=== PATIENT | male | born 1970 | race Caucasian/White ===

== ENCOUNTER 2017-01-30 12:17 | Emergency (ER) | payer OTHER ==
[~2017-01-30] VITALS: Ht 180.3 cm; Wt 117.9 kg
[~2017-01-30 12:17] MED LIST: ALPRAZOLAM2 M2 PO; FLEXERIL10 MG PO; IBU800 MG PO; LISINOPRIL20 MG PO; NORVASC 5MG TAB5 MG PO; PERCOCET 325 MG1 TA2 PO
--- NOTE | 2017-01-30 12:45 | ED PSYCHIATRIC COMPLAINT ---
History of Present Illness General Chief Complaint: Psychiatric Related Complaint Stated Complaint: DEPRESSION Source: patient, old records Exam Limitations: no limitations Vital Signs & Intake/Output Vital Signs & Intake/Output Vital Signs Date Time Temp Pulse Resp B/P B/P Pulse O2 O2 Flow FiO2 Mean Ox Delivery Rate 01/30 1547 97.3 80 12 151/88 96 Room Air 01/30 1448 Room Air 01/30 1224 97.9 96 18 181/100 98 Room Air Allergies Coded Allergies: MDX - Penicillin (PENICILLIN) (PER PT HAD A KID 04/14/15) PER PATIENT PLEASE DISCARD THE ALLERGY DOESNT REMEMBER IF HE HAD IT AND SAIS ITS OK TO RECEIVE PCN MEDICATIONS OR CEPHALOSPORINS PER MAICO GILLESPIE Reconcile Medications Alprazolam 2 MG TABLET 1 TAB PO TIDPRN PRN ANXIETY (Reported) Amlodipine Besylate 10 MG TABLET 1 TAB PO DAILY HEART (Reported) Ramelteon (Rozerem) 8 MG TABLET 1 TAB PO QPM SLEEP (Reported) Valsartan (Diovan) 80 MG TABLET 1 TAB PO DAILY HEART (Reported) Triage Note: 46 Y/O MALE PRESENTS WITH INCREASING DEPRESSION "FOR MONTHS". STATES "I HAVE NO QUALITY OF LIFE, I JUST WANT TO GET BETTER". REPORTS DIFFICULTY SLEEPING AND EATING. DENIES SI/HI BUT STATES "I JUST DONT WANT TO DEAL WITH ANYTHING .. I HAVE NO MOTIVATION, NO NOTHING". STATES HE IS HAVING INCREASING PANIC ATTACKS. WAS ON PROZAC BUT STOPPED DUE IT FEELING IT WAS NOT HELPING. PT REPORTS BEING "EMOTIONAL, I GET SO WORKED UP SO EASILY". PT TEARFUL DURING TRIAGE. DENIES DRUG USE. DENIES PHYSICAL COMPLAINTS. Triage Nurses Notes Reviewed? yes HPI: Patient brought into the emergency department for increasing depression. Patient denies any suicidal ideations however he does feel that he is worthless and he does not deserve to live anymore. His doctor has wanted to prescribed Prozac a month ago with the patient did not want to take it. Patient denies any homicidal ideations. Patient denies any hallucinations. Patient states he has been taking his medications only as prescribed and he has not attempted to harm himself. Past History Travel History Traveled to [place] past 21 day No Medical History Any Pertinent Medical History? 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 No Review of Systems Review of Systems Constitutional: Reports: no symptoms. EENTM: Reports: no symptoms. Respiratory: Reports: no symptoms. Cardiovascular: Reports: no symptoms. GI: Reports: no symptoms. Genitourinary: Reports: no symptoms. Musculoskeletal: Reports: no symptoms. Skin: Reports: no symptoms. Neurological/Psychological: Reports: see HPI, dementia. Hematologic/Endocrine: Reports: no symptoms. Immunologic/Allergic: Reports: no symptoms. All Other Systems: Reviewed and Negative Physical Exam Physical Exam General Appearance: well developed/nourished, alert, awake, moderate distress Head: atraumatic, active bleeding Eyes: Bilateral: PERRL, EOMI. Ears, Nose, Throat: normal pharynx, normal ENT inspection, hearing grossly normal Neck: normal inspection, supple Respiratory: normal breath sounds, chest non-tender, no respiratory distress, lungs clear Cardiovascular: regular rate/rhythm, normal peripheral pulses Gastrointestinal: normal bowel sounds, soft, non-tender Extremities: normal range of motion Neurological/Psychiatric: no motor/sensory deficits, awake, alert, oriented x 3 Appearance/Memory/Insight: appropriate appearance, appropriate insight Behavoir/Eye Contact/Speech: cooperative, normal speech, good eye contact, TEARFULL Thoughts/Hallucinations: normal thought pattern, no apparent hallucination Skin: intact, normal color, warm/dry SAD PERSONS Done? CRISIS CONSULT OBTAINED Progress Differential Diagnosis: drug intoxication, drug overdose, drug withdrawal, electrolyte abnormality Plan of Care: Orders Procedure Date/time Status Regular Diet 01/30 D Active Continuous Observation Monitor 01/30 1244 Active URINE DRUGS OF ABUSE 01/30 1244 Complete ETHANOL 01/30 1244 Complete COMPREHENSIVE METABOLIC PANEL 01/30 1244 Complete CBC WITHOUT DIFFERENTIAL 01/30 1244 Complete ED CRISIS PSYCH CONSULT 01/30 1244 Active Current Medications Sig/Imani Start time Last Medication Dose Stop Time Status Admin Amlodipine Besylate 10 MG DAILY 01/31 1000 UNVr (Norvasc) Losartan Potassium 25 MG DAILY 01/31 1000 UNVr (Cozaar) Ramelteon 8 MG QPM 01/30 2200 UNVr (Rozerem) Alprazolam 2 MG TID 01/30 174 UNVr 01/30 (Xanax) 02/06 1742 1754 Laboratory Tests 01/30/17 1513: Anion Gap 9, Estimated GFR > 60, BUN/Creatinine Ratio 23.0, Glucose 91, Calcium 9.7, Total Bilirubin 0.8, AST 63 H, ALT 76 H, Alkaline Phosphatase 141 H, Total Protein 8.0, Albumin 4.3, Globulin 3.7, Albumin/Globulin Ratio 1.2, CBC w Diff NO MAN DIFF REQ, RBC 4.46 L, MCV 88.4, MCH 30.5, RDW 13.9, MPV 7.1 L, Gran % 68.9, Lymphocytes % 23.4, Monocytes % 6.1, Eosinophils % 1.1, Basophils % 0.5, Absolute Granulocytes 5.5, Absolute Lymphocytes 1.9, Absolute Monocytes 0.5 , Absolute Eosinophils 0.1, Absolute Basophils 0, PUBS MCHC 34.5, Serum Alcohol < 10.0 01/30/17 1320: Urine Opiates Screen < 100.00, Methadone Screen 55, Barbiturate Screen < 60, Ur Phencyclidine Scrn < 6.00, Amphetamines Screen < 100, U Benzodiazepines Scrn > 800 H, Urine Cocaine Screen < 50, Urine Cannabis Screen < 5.00 Comments: Patient has been seen and evaluated by cloth opener hand. Patient has IOP appointment tomorrow morning. Patient is stable for discharge. Departure Departure Disposition: HOME OR SELF CARE Condition: Stable Clinical Impression Primary Impression: Depression Referrals: MAGALYS VARGAS MD (PCP/Family) Additional Instructions: Follow-up with IOP appointment tomorrow. Return if symptoms worsen or for any concerns. Departure Forms: Customer Survey General Discharge Information
[2017-01-30] MEDS ORDERED: DIOVAN80 M1 PO (14:13)
[2017-01-30] MEDS ORDERED: AMLODIPINE BESY10 M1 PO (14:13)
[2017-01-30] MEDS ORDERED: ROZEREM8 M1 PO (14:13)
[2017-01-30 15:35] LABS: ABSOLUTE BASOPHIL COUNT 0 /CUMM (0.0-0.2); ABSOLUTE EOSINOPHIL COUNT 0.1 /CUMM (0.0-0.7); ABSOLUTE GRANULOCYTE CT 5.5 /CUMM (1.4-6.5); ABSOLUTE LYMPH COUNT 1.9 /CUMM (1.2-3.4); ABSOLUTE MONOCYTE COUNT 0.5 /CUMM (0.10-0.60); BASOPHIL % 0.5 % (0.0-2.0); EOSINOPHIL % 1.1 % (0-5); GRANULOCYTE % 68.9 % (42.2-75.2); HEMATOCRIT 39.4 % (42-52); MEAN CORPUSCULAR HGB 30.5 PG (27.0-31.0); MEAN CORPUSCULAR HGB CONC 34.5 G/DL (33.0-37.0); MEAN CORPUSCULAR VOLUME 88.4 FL (80.0-94.0); MEAN PLATELET VOLUME 7.1 FL (7.4-10.4); PLATELET COUNT 239 /CUMM (130-400); RBC DISTRIBUTION WIDTH 13.9 % (11.5-14.5); RED BLOOD CELL CT 4.46 /CUMM (4.70-6.10); WHITE BLOOD CELL COUNT 7.9 /CUMM (4.8-10.8)
--- NOTE | 2017-01-30 19:27 | ED PSYCH CRISIS CONSULTATION ---
Crisis Consult Basic Assessment Date of Consult: 01/30/17 Responsible Person/Accompanied By: Came in by himself Insurance Authorization: Insurance #1: Insurance name: ALEXEI Gleason C[employer]Ros[employer] Phone number: Policy number: [id number] Group number: Authorization number: ED Provider: Patient's ED Provider: KISHAN PARISH,CHRISTIE Leiva Primary Care Physician: Patient's PCP: MAGALYS VARGAS MD PCP's Chief Complaint: Psychiatric Related Complaint Patient's Quote: "I'm depressed and don't want to do anything". Present Illness: Pt is a 46 year old male, arriving to ER. 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 Since then he has felt useless, and states he has trouble with focusing, poor sleep and is depressed. He denies si/hi/ah.vh. He has not been inpatient nor has he received any other level of care to treat mental health problems, although he states his PCP precribed him prozac 2 months ago, he stopped taking the medication after a few weeks "because it didn't do anything". Pt reports he is also prescribed Alprazolam and takes up to 6 mg a day, for "panic issues". Pt has not seen a psychiatrist, or a digital research analyst, and is unsure if he is diagnosed with anxiety or depression. He feels "emotional", and it is not unclear what his stressors or triggers are. He states he take nyquil to sleep, and its not helpful. Pt lives at his Mother's home with his 9 year old daughter, and her Mother. Pt denies drug and etoh use. He wants help, and thought he could come to the hospital "to stay for 5 days and get some peace". Pt lives with Jaky, I spoke with her and she wants him to get help, I explained the levels of care to her, and shared our recommendation would be IOP. She denied concern for his safety, and was hopeful that he would attend. Patient's Address: [address] [place], [place] [id number] Other Phone Number: Who Do You Live With? Family Family/Informants Interviewed: Jaky is sad that he is acting like is in front of their daughter, she reports he is so emotional at home and unmotivated. She is not concerned for his saftey, he "just needs a kick in the butt, to get some help". Allergies - Coded Allergies: MDX - Penicillin (PENICILLIN) (PER PT HAD A KID 04/14/15) PER PATIENT PLEASE DISCARD THE ALLERGY DOESNT REMEMBER IF HE HAD IT AND SAIS ITS OK TO RECEIVE PCN MEDICATIONS OR CEPHALOSPORINS PER MAICO GILLESPIE Current Medications - Scheduled Medications Amlodipine Besylate 10 MG TABLET 1 TAB PO DAILY HEART #30 (Reported) Entered as Reported by RIGOBERTO LONG on 01/30/17 1413 Ramelteon (Rozerem) 8 MG TABLET 1 TAB PO QPM SLEEP #30 (Reported) Entered as Reported by RIGOBERTO LONG on 01/30/17 1413 Valsartan (Diovan) 80 MG TABLET 1 TAB PO DAILY HEART #30 (Reported) Entered as Reported by RIGOBERTO LONG on 01/30/17 1413 Scheduled PRN Medications Alprazolam 2 MG TABLET 1 TAB PO TIDPRN PRN ANXIETY (Reported) Entered as Reported by GUIDO RICK on 04/14/152008 Laboratory Results: Laboratory Tests 01/30/17 1513: Anion Gap 9, Estimated GFR > 60, BUN/Creatinine Ratio 23.0, Glucose 91, Calcium 9.7, Total Bilirubin 0.8, AST 63 H, ALT 76 H, Alkaline Phosphatase 141 H, Total Protein 8.0, Albumin 4.3, Globulin 3.7, Albumin/Globulin Ratio 1.2, CBC w Diff NO MAN DIFF REQ, RBC 4.46 L, MCV 88.4, MCH 30.5, RDW 13.9, MPV 7.1 L, Gran % 68.9, Lymphocytes % 23.4, Monocytes % 6.1, Eosinophils % 1.1, Basophils % 0.5, Absolute Granulocytes 5.5, Absolute Lymphocytes 1.9, Absolute Monocytes 0.5 , Absolute Eosinophils 0.1, Absolute Basophils 0, PUBS MCHC 34.5, Serum Alcohol < 10.0 01/30/17 1320: Urine Opiates Screen < 100.00, Methadone Screen 55, Barbiturate Screen < 60, Ur Phencyclidine Scrn < 6.00, Amphetamines Screen < 100, U Benzodiazepines Scrn > 800 H, Urine Cocaine Screen < 50, Urine Cannabis Screen < 5.00 Past History Past Medical History Neurological: NONE EENT: NONE Cardiovascular: hypertension Respiratory: NONE Gastrointestinal: NONE Hepatic: NONE Renal: NONE Musculoskeletal: NONE Psychiatric: anxiety Endocrine: NONE Blood Disorders: NONE Cancer(s): NONE 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 Psychiatric Treatment History Psych Treatment Psychiatric Treatment No Diagnosis by History: unknown Substance Use/Abuse History Drug Use/Abuse Substances Used/Abused Yes Substance Used/Abused Benzodiazepines First Use unknown Last Used today How much used/taken up to 6 mg prescibed xnanx daily How often daily For how long unknown Route of use oral Substance Abuse Treatment Substance Abuse Treatment Past Substance Abuse [place] No Current Mental Status Mental Status Orientation: Person, Place, Situation Affect: Labile, Sad, Variable Speech: Mumbled, Soft Neuro-vegetative: Appetite Decreased, Concentration Poor, Energy Decreased, Helpless, Sleep Disturbance Appearance Appearance- Dress/Hygiene: WNL/appropriate Behaviors Thought Process: WNL, perseverating Thought Content: WNL Memory: WNL Insight: Poor SI/HI Risk Assessment Past Suicidal Ideation/Attempts No Current Suicidal Ideation/Att No Past Homicidal Ideation/Att: No Current Homicidal Ideation/Attempts No Degree of Intent: None Risk Factors: lack of outcome concern, male, limited support Lethality Ratin (mild) PTSD Checklist PTSD Done? patient declined ED Management Sitter: Yes Restraints: No DSM5/PS Stressors/Medical Prob Diagnosis' (DSM 5, Stressors, Medical): Unspecified anxiety D/O F41.9 Unspecified depression D/O F32.9 Deferred unknown medical conditions Current GAF: 36 Departure Disposition Psych Medical Clearance Date: 01/30/17 Medically Cleared at: 1630 Time Started: 1630 Time Ended: 1729 Psychiatrist Consulted: Anderson Feliciano MD Date Disposition Established: 01/30/17 Time Disposition Established: 1729 Plan for Disposition - Modality: IOP Facility: [facility] Follow-up Appt Date: 01/31/17 Follow-Up Appt Time: 0930 Contact: [facility] Telephone: [phone] Rationale for Disposition: Pt meets criteria for IOP, and has an intake appt tomorrow at 9:30am [facility], consulted with Dr. Feliciano recommends this level of care at this time. Referrals MAGALYS VARGAS MD (PCP/Family)
[2017-01-30 19:44] VITALS: BP 139/81
== END 2017-01-30 21:27 ==
LOC: ERH 12:17
PROVIDERS: Emergency Medicine
DX: F32.9 Major depressive disorder, single episode, unspecified (principal)
CPT/HCPCS: 80307; G0463; G0480

== ENCOUNTER 2018-03-26 16:46 | Inpatient (IN) | payer OTHER ==
[~2018-03-26] VITALS: Ht 180.3 cm; Wt 126.1 kg
[~2018-03-26 16:46] MED LIST changes: +AMLODIPINE BESY10 M1 PO; +DIOVAN80 M1 PO; +NAPROSYN500 M1 PO; +ROZEREM8 M1 PO
[2018-03-26 17:13] LABS: HEMATOCRIT 28.9 % (42-52); MEAN CORPUSCULAR HGB 32.2 PG (27.0-31.0); MEAN CORPUSCULAR HGB CONC 34.7 G/DL (33.0-37.0); MEAN PLATELET VOLUME 9.3 FL (7.4-10.4); PLATELET COUNT 116 /CUMM (130-400); RBC DISTRIBUTION WIDTH 16.9 % (11.5-14.5); RED BLOOD CELL CT 3.11 /CUMM (4.70-6.10); WHITE BLOOD CELL COUNT 11.9 /CUMM (4.8-10.8)
--- NOTE | 2018-03-26 17:33 | ED SKIN/ALLERGY COMPLAINT ---
History of Present Illness General Chief Complaint: Abdominal Pain/Flank Pain Stated Complaint: BIBA GI BLEED Source: patient Exam Limitations: poor historian Vital Signs & Intake/Output Vital Signs & Intake/Output Vital Signs Date Time Temp Pulse Resp B/P B/P Pulse O2 O2 Flow FiO2 Mean Ox Delivery Rate 03/26 1948 97.8 92 20 122/60 98 Room Air 03/26 1729 Room Air 03/26 1656 98.3 90 16 96/52 98 Room Air Allergies Coded Allergies: Penicillins (Severe, UNKNOWN PER PT HAD A REACTION A CHILDHOOD 03/26/18) Reconcile Medications Amlodipine Besylate 10 MG TABLET 1 TAB PO DAILY HEART (Reported) Atorvastatin Calcium (Unknown Strength) TABLET (Unknown Dose) PO DAILY CHOLESTEROL (Reported) Diazepam 10 MG TABLET 1 TAB PO TID PRN ANXIETY (Reported) Gabapentin (Neurontin) 300 MG CAPSULE 2 CAP PO TID NERVE PAIN/ANXIETY ( Reported) Mirtazapine (Remeron) (Unknown Strength) TABLET (Unknown Dose) PO QPM SLEEP ( Reported) Ramelteon (Rozerem) 8 MG TABLET 1 TAB PO QPM SLEEP (Reported) Valsartan (Diovan) 80 MG TABLET 1 TAB PO DAILY HEART (Reported) Triage Note: BIBA FROM HOME WITH C/O ABDOMINAL PAIN WITH REPORT OF VOMITING BLOOD/BROWN COLOR AND HAVING BOWEL MOVEMENTS WITH DARK RED STOOL X3 DAYS. PATIENT ALSO REPORTS INCREASED WEAKNESS. PATIENT DENIES ETOH ABUSE BUT FAMILY REPORTS PATIENT USES ETOH DAILY. PATIENT ARRIVES WITH MULTIPLE BRUISES IN VARIOUS STAGES OF HEALING ALL OVER EXTREMITIES. PATIENT DENIES CP OF DIFFICULTY BREATHING, DENIES BLOOD THINNERS. PATIENT ARRIVES WITH PREHOSPITAL IV IN LEFT HAND. CHANGED INTO HOSPITAL W, 2ND IV ESTABLISHED. AWAITING PROVIDER EVAL. Triage Nurses Notes Reviewed? yes HPI: Patient presents for evaluation of weakness and bruising of the arms and legs that began about 4 days ago. Symptoms are characterized as constant and seemed to be getting worse over the past 48 hours. The patient states he vomited repeatedly over the past 2 days as well but denies any blood in the vomitus. He states he also had some mild red blood when he wiped over yesterday and today. He denies any associated fever, cold symptoms, chest pain, dyspnea, abdominal pain or diarrhea. He PO intake has been diminished because he just simply doesn 't feel hungry. He denies alcohol use or drug use. Past History Travel History Traveled to [place] past 21 day No Medical History Any Pertinent Medical History? 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 No Review of Systems Review of Systems Constitutional: Reports: see HPI. EENTM: Reports: no symptoms. Respiratory: Reports: no symptoms. Cardiovascular: Reports: no symptoms. GI: Reports: no symptoms. Genitourinary: Reports: no symptoms. Musculoskeletal: Reports: no symptoms. Skin: Reports: see HPI. Neurological/Psychological: Reports: no symptoms. Hematologic/Endocrine: Reports: no symptoms. Immunologic/Allergic: Reports: no symptoms. All Other Systems: Reviewed and Negative Physical Exam Physical Exam General Appearance: see below Comments: Gen.: Well-nourished, well-developed, no acute respiratory distress. Head: Normocephalic, atraumatic. Eyes: Normal inspection bilaterally, question of subtle icterus Ears: Normal inspection bilaterally Nose: Normal inspection Throat/mouth : Moist mucosa Neck: Supple, full range of motion, no goiter Heart: Regular rate and rhythm, no murmurs rubs or gallops Lungs: Clear to auscultation bilaterally with normal air entry Chest: Nontender Back: Normal range of motion Abdomen: Soft, nontender, nondistended, normal bowel sounds Extremities: Normal range of motion grossly, equal radial pulses, no cyanosis clubbing or edema, calves nontender, ecchymoses of the right popliteal fossa and anteromedial left leg. There is also a relatively acute appearing ecchymotic lesion over the left elbow Neurologic: Cranial nerves grossly intact, speech is clear Skin: warm and dry Psychiatric: Calm, cooperative, no apparent delusions or hallucinations Progress Differential Diagnosis: ANEMIA, DEHYDRATION, ELECTROLYTE ABNORMALITY, ACIDOSIS, LIVER DISEASE Plan of Care: Orders Procedure Date/time Status Heart Healthy Diet 03/27 B Active LACTIC ACID 03/26 1958 Active Add-on Test (ER Only) 03/26 1940 Active Misc Message 03/26 1938 Active ED Holding Orders 03/26 1938 Active Admit to inpatient 03/26 1938 Active Vital Signs 03/26 1938 Active Code Status 03/26 1938 Active EKG 03/26 1848 Active Add-on Test (ER Only) 03/26 173 Active PARTIAL THROMBOPLASTIN TIME 03/26 170 Complete PROTHROMBIN TIME 03/26 170 Complete HEPATITIS PANEL 03/26 170 Active LACTIC ACID 03/26 165 Active COMPREHENSIVE METABOLIC PANEL 03/26 1658 Active CBC WITHOUT DIFFERENTIAL 03/26 1658 Complete TYPE & SCREEN (NOT X-MATCH) 03/26 1658 Complete Current Medications Sig/Imani Start time Last Medication Dose Stop Time Status Admin Sodium Chloride 1,000 ML ONCE ONE 03/26 1900 AC 03/26 (Normal Saline 0.9%) 03/27 Laboratory Tests 03/26/18 2000: Lactic Acid Pending 03/26/18 1700: Anion Gap 18 H, Estimated GFR 6 L, BUN/Creatinine Ratio 11.4, Glucose 88, Lactic Acid 2.2 H, Calcium 5.8 *L, Total Bilirubin 4.3 H, AST 6928 H, ALT 1128 H, Alkaline Phosphatase 376 H, Total Protein 6.1 L, Albumin 2.7 L, Globulin 3.4, Albumin/Globulin Ratio 0.8 L, PT 16.0 H, INR 1.46 H, APTT 39 H , CBC w Diff MAN DIFF ORDERED, RBC 3.11 L, MCV 93.0, MCH 32.2 H, MCHC 34.7, RDW 16.9 H, MPV 9.3, Segmented Neutrophils 72, Lymphocytes 26, Monocytes 1 L, Eosinophils 1, Platelet Estimate DECREASED, Anisocytosis 1+, Target Cells RARE, Hepatitis A IgM Ab Pending, Hep Bs Antigen Pending, Hep B Core IgM Ab Conf Pending, Hepatitis C Antibody Pending Diagnostic Imaging: Discussed w/RAD: CT Scan. Radiology Impression: PATIENT: VALENTINA GONZALEZ PRESENT AGE: 47 PATIENT ACCOUNT NO: [id number] : 71 LOCATION: [facility] ORDERING PHYSICIAN: Americo Dyson MD SERVICE DATE: 03/26/18 EXAM TYPE: CAT - CT ABD & PELVIS W/O IV CONTRAS EXAMINATION: CT ABDOMEN AND PELVIS WITHOUT CONTRAST CLINICAL INFORMATION: Hepatitis, biliary obstruction, ascites and vomiting. COMPARISON: Ultrasound abdomen 09/02/2017. TECHNIQUE: Multidetector volumetric imaging was performed from the superior aspect of the liver through the pubic symphysis. Sagittal and coronal reformatted images were obtained on the technologist's workstation. DLP: 1104 mGy-cm FINDINGS: LUNG BASES: The visualized lung bases are unremarkable. LIVER, GALLBLADDER, AND BILIARY TREE: The liver is enlarged and hypodense compared to spleen likely hepatic fatty infiltration. No focal lesion is seen on this exam. No intrahepatic ductal dilatation. The gallbladder is unremarkable with no evidence of radiopaque gallstones, gallbladder wall thickening, or obvious pericholecystic inflammatory changes. PANCREAS: Unremarkable. SPLEEN: Unremarkable. ADRENAL GLANDS: Unremarkable. KIDNEYS AND URETERS: The kidneys are normal in size, shape, and attenuation. No hydronephrosis, hydroureter, or calculi seen. No perinephric stranding. BLADDER: Unremarkable. GASTROINTESTINAL TRACT: There is mild mural thickening of the ascending and proximal transverse colon likely nonspecific focal colitis. There is no pericolic inflammatory process. The ileocecal junction, cecum and the small bowel loops unremarkable. Appendix is not seen. Rest of the colon is unremarkable as well. The stomach appears unremarkable. ABDOMINAL WALL: No significant hernia is appreciated. LYMPH NODES: Normal. VASCULAR: Unremarkable. PELVIC VISCERA: There is scattered sigmoid diverticulosis without diverticulitis. No pelvic mass or free fluid seen. No abnormal lymph nodes. OSSEOUS STRUCTURES: No lytic or sclerotic process seen. There are degenerative disc changes L4-L5 disc level. IMPRESSION: Hepatomegaly with hepatic steatosis. No focal lesion seen. Nonspecific mild mural thickening involving distal ascending colon and right transverse colon. Nonspecific colitis likely inflammatory or infectious etiology. No proximal bowel obstruction. Scattered sigmoid diverticulosis without diverticulitis. DICTATED BY: Will Phillips MD DATE/TIME DICTATED:03/26/181937 SALES OPERATIONS CONSULTANT:JANE DATE/TIME TRANSCRIBED:03/26/181937 CONFIDENTIAL, DO NOT COPY WITHOUT APPROPRIATE AUTHORIZATION. <Electronically signed in Other Vendor System> SIGNED BY: Will Phillips MD 03/26/181947 Initial ED EKG: NSR, rate (90) Comments: 03/26/2018 7:49:50 PM according is beginning to feel better with IV fluids. I have updated him on test results. Patient's case discussed with Dr. Rivas. Departure Departure Disposition: STILL A PATIENT Condition: Stable Clinical Impression Primary Impression: Acute renal failure Qualifiers: Acute renal failure type: unspecified Qualified Code: N17.9 - Acute kidney failure, unspecified Secondary Impressions: Hepatitis Referrals: Wilver Santiago MD (PCP/Family) Departure Forms: Customer Survey General Discharge Information Admission Note Spoke With: Tonio Rivas MD Documentation of Exam: Documentation of any treatments & extenuating circumstances including Concerns Regarding Discharge (functional status, medication knowledge or non-compliance, living conditions, etc.) that warrant an admission rather than observation: Patient presents with generalized weakness and easy bruising. His emergency department evaluation reveal signs of acute renal failure and hepatitis. The patient denies history of liver disease or recent alcohol use. Etiology of the patient's renal failure and hepatitis is unclear at this time. He is at high risk of progressive hyperkalemia, acidosis, coagulopathy, cardiac dysrhythmia and mortality. I feel he is a poor candidate for outpatient management at this time. I suspect he would return in worse clinical condition including the possibility of hemorrhaging Given his innate anticoagulation. During his hospitalization I feel this patient should have monitoring of his renal functions and hepatic functions and coagulation panel. Nephrology consultation should be obtained. Gentle IV hydration should be provided given the possibility of prerenal azotemia. GI consultation should also be considered given the transaminitis , elevated INR and elevated alkaline phosphatase. The study should also be monitored. If patient does not respond to initial treatment hepatorenal syndrome should be considered. I feel this patient will require a multiple day hospitalization. Critical Care Note Critical Care Note Critical Care Time: 30-74 min
[2018-03-26 17:54] LABS: PTT 39 SEC (25-37)
[2018-03-26] MEDS ORDERED: DIAZEPAM10 M1 PO (19:13)
[2018-03-26] MEDS ORDERED: NEURONTIN300 M1 PO (19:14)
[2018-03-26] MEDS ORDERED: REMERON15 M2 PO (19:16)
[2018-03-26] MEDS ORDERED: ATORVASTATIN CA10 M1 PO (19:16)
--- NOTE | 2018-03-26 19:48 | CT SCAN REPORT ---
EXAMINATION: CT ABDOMEN AND PELVIS WITHOUT CONTRAST CLINICAL INFORMATION: Hepatitis, biliary obstruction, ascites and vomiting. COMPARISON: Ultrasound abdomen 09/02/2017. TECHNIQUE: Multidetector volumetric imaging was performed from the superior aspect of the liver through the pubic symphysis. Sagittal and coronal reformatted images were obtained on the technologist's workstation. DLP: 1104 mGy-cm FINDINGS: LUNG BASES: The visualized lung bases are unremarkable. LIVER, GALLBLADDER, AND BILIARY TREE: The liver is enlarged and hypodense compared to spleen likely hepatic fatty infiltration. No focal lesion is seen on this exam. No intrahepatic ductal dilatation. The gallbladder is unremarkable with no evidence of radiopaque gallstones, gallbladder wall thickening, or obvious pericholecystic inflammatory changes. PANCREAS: Unremarkable. SPLEEN: Unremarkable. ADRENAL GLANDS: Unremarkable. KIDNEYS AND URETERS: The kidneys are normal in size, shape, and attenuation. No hydronephrosis, hydroureter, or calculi seen. No perinephric stranding. BLADDER: Unremarkable. GASTROINTESTINAL TRACT: There is mild mural thickening of the ascending and proximal transverse colon likely nonspecific focal colitis. There is no pericolic inflammatory process. The ileocecal junction, cecum and the small bowel loops unremarkable. Appendix is not seen. Rest of the colon is unremarkable as well. The stomach appears unremarkable. ABDOMINAL WALL: No significant hernia is appreciated. LYMPH NODES: Normal. VASCULAR: Unremarkable. PELVIC VISCERA: There is scattered sigmoid diverticulosis without diverticulitis. No pelvic mass or free fluid seen. No abnormal lymph nodes. OSSEOUS STRUCTURES: No lytic or sclerotic process seen. There are degenerative disc changes L4-L5 disc level. IMPRESSION: Hepatomegaly with hepatic steatosis. No focal lesion seen. Nonspecific mild mural thickening involving distal ascending colon and right transverse colon. Nonspecific colitis likely inflammatory or infectious etiology. No proximal bowel obstruction. Scattered sigmoid diverticulosis without diverticulitis.
--- NOTE | 2018-03-26 22:26 | History & Physical ---
John Holbrook 03/26/18 2226: General Information and HPI MD Statement: I have seen and personally examined JUAN DIEGO KUNZ and documented this H&P. The patient is a 47 year old M who presented with a patient stated chief complaint of [muscle cramps x 1 day, vomiting x 4 days]. Source of Information: patient, old records Exam Limitations: poor historian History of Present Illness: Juan Diego Kunz is a 49 M with a PMH HTN Anxiety who presents with a chief complaint of muscle cramping x 1 day, but has several other complaints as well. Poor historian. States weakness and bruising of the arms and legs that began about 4 days ago. States general myalgias, malaise, weakness x 4 days. States he vomited repeatedly over the past 2 days as well but denies any blood in the vomitus, states vomitus is brown liquid and is not associated with meals. Does state decreased PO intake/appetite. Also states for the past two days he has found non-painful streaks of bright red blood on toilet paper, none in toilet itself. States the color and calibre of his stools have changed; his stools are now dark. States that his stomach is a bit bigger than normal, "holding on to more fluid". He denies any associated fever, cold symptoms, chest pain, dyspnea, abdominal pain or diarrhea. He denies alcohol use or drug use. 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 Eventually did complain of vague epigastric pain after continued questioning. Per triage note: Patient denies etoh abuse but family reports patient uses etoh daily. Has had a prev admission in 04/15/15 with similar creatinine elevations. 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 ROS Positive for: Lethargy, Weakness, Vomiting, Diarrhea, "Flu-like"symptoms, Decreased appetite, cramps, bruising Negative for: Fevers, Chills, Night sweats, Confusion, Headache, Dizziness, Blurred Vision, Chest pain, palpitations, shortness of breath, orthopnea, falls, IVDU, recent unprotected sexual encounters, joint pains, rashes Allergies/Medications Allergies: Coded Allergies: Penicillins (Severe, UNKNOWN PER PT HAD A REACTION A CHILDHOOD 03/26/18) Home Med list Amlodipine Besylate 10 MG TABLET 1 TAB PO DAILY HEART (Reported) Atorvastatin Calcium (Unknown Strength) TABLET (Unknown Dose) PO DAILY CHOLESTEROL (Reported) Gabapentin (Neurontin) 300 MG CAPSULE 2 CAP PO TID NERVE PAIN/ANXIETY ( Reported) Mirtazapine (Remeron) (Unknown Strength) TABLET (Unknown Dose) PO QPM SLEEP ( Reported) Ramelteon (Rozerem) 8 MG TABLET 1 TAB PO QPM SLEEP (Reported) Valsartan (Diovan) 80 MG TABLET 1 TAB PO DAILY HEART (Reported) Past History Travel History Traveled to [place] past 21 day No Medical History Neurological: NONE EENT: NONE Cardiovascular: hypertension, hyperlipidemia Respiratory: NONE Gastrointestinal: NONE Hepatic: NONE Renal: NONE Musculoskeletal: NONE Psychiatric: anxiety Endocrine: NONE Blood Disorders: NONE Cancer(s): NONE CREDIT COLLECTOR/Reproductive: NONE Other Medical Hx: fhx: negative renal disease Surgical History Surgical History: non-contributory, N Past Family/Social History Psychosocial History Who Do You Live With? spouse, child Primary Language: [place] ETOH Use: denies use Illicit Drug Use: denies illicit drug use Review of Systems Review of Systems Constitutional: Reports: see HPI, malaise, weakness. Denies: chills, diaphoresis, fever, unexplained weight loss. EENTM: Denies: blurred vision, double vision, visual changes. GI: Reports: abdominal pain (epigastrum), diarrhea, distention, changes in stool, vomiting. Exam & Diagnostic Data Last 24 Hrs of Vital Signs/I&O Vital Signs Date Time Temp Pulse Resp B/P B/P Pulse O2 O2 Flow FiO2 Mean Ox Delivery Rate 03/27 0059 97.9 87 100/50 95 03/26 2253 97.7 84 20 110/58 94 Room Air 03/26 2155 78 18 102/58 100 Room Air 03/26 2149 Room Air 03/26 1948 97.8 92 20 122/60 98 Room Air 03/26 1729 Room Air 03/26 1656 98.3 90 16 96/52 98 Room Air Intake & Output 03/27 0800 03/27 0000 03/26 1600 Intake Total Output Total Balance Patient 272 lb Weight Weight Bed scale Measurement Method Physical Exam General Appearance Alert, Oriented X3, Cooperative, Mild Distress Skin multiple ecchymosis to extremities in various stages of healing, pale Skin Temp/Moisture Exam: Warm/Dry HEENT Atraumatic, jaundiced sclera Neck Supple Cardiovascular Regular Rate, Normal S1, Normal S2 Lungs Clear to Auscultation, Normal Air Movement Abdomen distended; mild vascular markings noted to superior aspect, brusing to R lateral flank; no fluid wave noted, TTP diffuse mildly, localized tenderness to epigastrum Neurological Normal Speech, Strength at 5/5 X4 Ext, Sensation Intact Extremities multiple healing ecchymosis on extremities; RUE on forearm, LUE on elbow, triceps; RLE large ecchymosis in popliteal fossa, LLE ecchymosis near tatto on maguire; all in various stages of healing Last 24 Hrs of Labs/Osmin: Laboratory Tests 03/26/18 2000: Lactic Acid 1.7 03/26/18 1700: Anion Gap 18 H, Estimated GFR 6 L, BUN/Creatinine Ratio 11.4, Glucose 88, Serum Osmolality 318 H, Lactic Acid 2.2 H, Calcium 5.8 *L, Phosphorus 8.6 H, Total Bilirubin 4.3 H, Direct Bilirubin 3.7 H, AST 6928 H, ALT 1128 H, Alkaline Phosphatase 376 H, Creatine Kinase Pending, Total Protein 6.1 L, Albumin 2.7 L, Globulin 3.4, Albumin/Globulin Ratio 0.8 L, PT 16.0 H, INR 1.46 H, APTT 39 H, CBC w Diff MAN DIFF ORDERED, RBC 3.11 L, MCV 93.0, MCH 32.2 H, MCHC 34.7, RDW 16.9 H, MPV 9.3, Segmented Neutrophils 72, Lymphocytes 26, Monocytes 1 L, Eosinophils 1, Platelet Estimate DECREASED, Anisocytosis 1+, Target Cells RARE, Hepatitis A IgM Ab Pending, Hep Bs Antigen Pending, Hep B Core IgM Ab Conf Pending, Hepatitis C Antibody Pending, Acetaminophen < 10.0 L, Serum Alcohol < 10.0 Microbiology 03/27 52 STOOL: Clostridium difficile Toxin A & B - ORD 03/27 52 STOOL: Stool Culture - ORD Assessment/Plan Assessment: Juan Diego Kunz is a 49 M with a PMH of HTN, Anxiety who presents with a chief complaint of muscle cramping x 1 day, with multiple other complaints including malaise, generalized weakness, vomiting, multiple bruises x 4 days. Denies alcohol use although family states he drinks every day. Has SHERIN (cre 9.0; baseline 1.0); rhabdomyolysis (CK >67478), transaminitis, alcohol detox on CIWA, pancreatitis with elevated lipase and epigastric pain radiating towards back although without CT findings. Problem list/Assessment/Hospital Course: #SHERIN/ATN 09/19 rhabdomyolysis #Rhabdomyolysis, unclear etiology, december 17 alcohol DT #Pancreatitis #Alchohol withdrawl/DT #Electrolytes derangements including Hyponatremia, Hypocalcemia #Transaminitis #Imaging evidence of colitis #Acute on chronic normacytic anemia #Thrombocytopenia, maybe 2 decreased liver function #PMH of HTN, anxiety - Admit to general medicine - Vitals per protocol, monitor I&O per protocol. - Patient received 2 x NS bolus in the ER. Aggressive hydration w/ another 2 bolus and keep on IVF 150cc/hr - Patient's MELD score is 32. - Start Ceftriaxone daily for presumed colitis, till further ruleout. - NPO at this time - Lactic acidosis resolved - Start prontonix 40mg inj qd - Continue only amlodipine 10mg qd from home meds, holding all other once as patient was being poor on confirming the dose. hold Valsartan due to decreased renal function. - On CTPMP, patient was also taking xanax 2mg up until November, pills for 30 days. Pt states on med rec that he takes Valium 10mg TID PRN, however this is not reflected on CTPMP. Record is in chart. - Utox pending - Pt has urinary hesitancy, nursing misc order in if >400mL PVR bladder scan then straight cath patient - Keep on CIWA ativan protocol - Pending GI consult in the AM - Pending Nephro consult in the AM - Recheck all electrolytes in the AM and trend LFTs - No significant APAP level - Avoid all hepatoxicity meds. - Pending Serology for hepatitis - Type and crossed, keep Hgb above 7. - Consider RUQ U/S per primary team - Replete Calcium - given 1g IV Calcium gluconate; corrected calcium was 6.8 - Pending cultures including blood/urine/sputum, urine antigens, etc. - Pending tick panel, lyme, ehrlichiosis given thrombocytopenia and patients occupation - Pain per pathway, <2 g tylenol per day DVT PPx ALPS, thrombocytopenic no heparin NPO IV access Full Code Dispo As Ranked By This Provider Problem List: 1. Hepatitis 2. Acute renal failure Qualifiers Acute renal failure type: unspecified Qualified Code: N17.9 - Acute kidney failure, unspecified Core Measures/Misc (05/04) Acute Coronary Syndrome ACS Diagnosis: No Congestive Heart Failure Congestive Heart Failure Diagnosis No Cerebrovascular Accident CVA/TIA Diagnosis: No VTE (View Protocol) VTE Risk Factors Age>40 No Mechanical VTE Prophylaxis d/t N/A MechProphylax Ordered No VTE Pharm Prophylaxis d/t Platelets below ref range Sepsis (View protocol) Sepsis Present: No If YES complete Sepsis Event Note If YES complete Sepsis Event Note AlcidesJoselyn 03/26/18 2259: Core Measures/Misc (05/04) Sepsis (View protocol) If YES complete Sepsis Event Note If YES complete Sepsis Event Note Resident Review Statement Resident Statement: examined this patient, discussed with customer operations intern, agreed with customer operations intern, discussed with family, reviewed EMR data (avail), discussed with nursing , discussed with case mgmt, reviewed images, amended to note Other Findings: Mr. kunz is a 47yo M w/ PMH of HTN, anxiety, presented to ER w/ cc of leg muscle cramping x 1 day w/ several other compalints including recent weakness/bruising of the arms/legs x 4 days, general myalgias, lalaise, weakness, and vomited w/o blood repeated x 2 days, non-painful defecation w/ streak of BRBPR on tiolet paper but not in tiolet itself, with darkening but not black stool. Rest of history as above. Patient was being a poor historian during clinical interaction. Rest of HPI as above. On admission, Vitals: stable afebril, tachycardia 92, RR 20, 98% RA Physical exam as above. Pertinent findings include scleral jaundice, tongue fasciculation, mildly visible subcutaneous veins, no spider nevi, no ab tenderness/waveform/hepatomegaly. -CBC: Leukocytosis 11.9, H/H 10/28.9, thrombocytopenia -CMP: Hyponatremia 130, K 4.7, CR 9.0, Lactic acid 2.2 ->1.7, Hypocalcemia 5.8 w / albumin 2.7 corrected to 6.6 still hypocalcemia, elevated TB/DB 4.3/3.7, markedly transaminitis 6928/1128, ALKP 376, CPK >81899 -PT/INR/DDimer: 02/09.46 -UA/Microbiology: not received -CT AB: Hepatomegaly with hepatic steatosis. No focal lesion seen. Nonspecific mild mural thickening involving distal ascending colon and right transverse colon. Nonspecific colitis likely inflammatory or infectious etiology. No proximal bowel obstruction. Scattered sigmoid diverticulosis without diverticulitis. -Interventions in ER: NS x 2 Mr Ze glez 47yo M w/ PMH of PMH of HTN, anxiety, possible alcohol use disorder , presented to the ER w/ multiple complaints w/ weakness, leg cramping, BRBPR on toilet paper only, vomiting, etc. The onset of his symptoms seems rather acute, and he was providing incordant history per his family members that he was drinking in the fast few day. On reviewing admission labs, It is unclear how he could suddenly developed such severe SHERIN and transaminitis, althought the LFTs represented a possible alcoholic hepatitis pending further rule out. Patient CPK level returned to be >26793, that would very likely represent rhabdomyolysis, which could be partially explained that patient may have had undergone alcohol DT at home (patient appeared to be agitated intermittently and scored CIWA), and subsequently this rhabdomyolysis is now causeing a significant renal injury/ATN and electrolyte derangement. Still, his transaminitis could be multifactorial with alcohol use as one significant contributor. Further GI and nephro workup would definitely be needed. Problem list/Assessment/Hospital Course: #SHERIN/ATN 2/2 rhabdomyolysis #Rhabdomyolysis, unclear etiology, december 17 alcohol DT #Alchohol withdrawl/DT #Electrolytes derangements including Hyponatremia, Hypocalcemia #Transaminitis #Imaging evidence of colitis #Acute on chronic normacytic anemia #Thrombocytopenia, maybe 2/2 decreased liver function #PMH of HTN, anxiety - Admit to general medicine - Vitals per protocol, monitor I&O per protocol. - Patient received 2 x NS bolus in the ER. Aggressive hydration w/ another 2 bolus and keep on IVF 150cc/hr - Patient's MELD score is 32. - Start Ceftriaxone daily for presumed colitis, till further ruleout. - Start prontonix 40mg inj qd - Continue only amlodipine 10mg qd from home meds, holding all other once as patient was being poor on confirming the dose. hold Valsartan due to decreased renal function. - On CTPMP, patient was also taking xanax 2mg intermittently although no such meds were prescribed recently. - Keep on CIWA ativan protocol - Pending GI consult in the AM - Pending Nephro consult in the AM - Recheck all electrolytes in the AM and trend LFTs - Pending U tox and acetaminophen level - Avoid all hepatoxicity meds. - Pending Serology for hepatitis - Type and crossed, keep Hgb above 7. - Consider RUQ U/S per primary team. - Replete Calcium - Pending cultures including blood/urine/sputum, urine antigens, etc. - Bladder scan and straight cath if >400cc/patient's subjective urgency with difficulty urinate. - Pain per pathway DVT prophylaxis ALPS only due to thrombocytopenia Regular Diet IV Access: Peripheral IV Full Code Dispo: Tonio Rivas MD 03/27/18 0458: Core Measures/Misc (05/04) Sepsis (View protocol) If YES complete Sepsis Event Note If YES complete Sepsis Event Note Attending MD Review Statement Attending Statement Attending MD Statement: examined this patient, discuss w/resident/PA/HEADER SET UP OPERATOR, agreed w/resident/PA/HEADER SET UP OPERATOR Attending Assessment/Plan: Patient is seen and examined independently by me. Care plan discussed with medical affairs director and resident. I agree with the physical exam findings and plan of care as outlined above with the following changes and additions. 49 yo M with history of HTN, anxiety, alcohol abuse (confirmed with family despite patient denies it). Patient presents with leg cramps for one day. 6 days ago, he was stung by bee when he mowed lawn. The next day he developed weakness, fatigue and sleepiness. Last 4 days, he has nausea, vomiting and denies bloody vomitus. Two days ago, he noticed blood when he wiped after BM but no blood in stool or toilet. He also has 4 days of easy bruising with bruises on his arms, abdomen and legs. Patient denies fever, chills, chest pain, SOB, cough, abdominal pain or dysuria. However, he states he has diarrhea 3 times a day for last 4 days. In the ED, patient is afebrile. WBC 11.9. Lactic acid 2.2 --> 1.7. H/H 10/28.9 ( Hb13.9 on 10/21/17). INR 1.46. PTT 39 BUN/Cr 103/Cr. Na 130. K 4.7. AG 18. Ca 5.8 (corrected Ca 6.8). PO4 8.6. Lipase 793. T bili 4.3. D bili 3.7. AST 6928, ALT 1128. CK >53355 Acetaminophen <10. EtOH <10. CT abd/pelvis shows fatty liver. Pancreas and gallbladder are unremarkable. Thickening wall of distal ascending and right transverse colon suggestive of colitis. Patient is admitted to [facility] for SHERIN, rhabdomyolysis, elevated LFT, rectal bleed and possible colitis. Patient may have alcohol withdrawal seizure (family states he is a daily drinker but his ethanol level is negative) leading to rhabdomyolysis with SHERIN. He may also has dehydration with pre-renal since he has history GI volume loss. Rectal bleed appears to be mild by history. He has leukocytosis with colitis finding on CT Check FeNa. IV hydration. Follow chem and CK. Renal consult. Microbert is listed in our med list record and will need to confirm with his Pharm. He is not sure of it. Hold ARB. CIWA and Ativan prn. Start thiamine and folic acid. Check acute hepatitis panel. Lyme and tabby titer. Monitor H/H. Check stool guaiac. Start PPI. GI consult. Check stool C+S, O+P and C diff. Start ceftriaxone. Tonio Rivas MD FACP
[2018-03-26 22:53] VITALS: BP 110/58
[2018-03-27] VITALS (7 sets, daily range): BP systolic 82–134; BP diastolic 32–60
[2018-03-27 08:32] LABS: MEAN CORPUSCULAR HGB 32.6 PG (27.0-31.0); MEAN CORPUSCULAR HGB CONC 34.6 G/DL (33.0-37.0); MEAN CORPUSCULAR VOLUME 94.1 FL (80.0-94.0); MEAN PLATELET VOLUME 9.6 FL (7.4-10.4); PLATELET COUNT 109 /CUMM (130-400); RBC DISTRIBUTION WIDTH 17.4 % (11.5-14.5); WHITE BLOOD CELL COUNT 11.4 /CUMM (4.8-10.8)
--- NOTE | 2018-03-27 08:41 | PN- Housestaff ---
Blane Medina 03/27/18 0837: Subjective Follow-up For: Rhabdomyolysis, alcohol detox, pancreatitis Complaints: Body cramp, loss of sleep body aches Subjective: Patient seen and examined at bed. He is complaining of decreased sleep, body cramps, body aches and feeling tired. He passed urine this morning which was brown in colour and only 15ml. He denies fever, chills, diarrhea, constipation, burning micturition, chest pain, shortness of breath, palpitation. Review of Systems Constitutional: Reports: see HPI. Objective Last 24 Hrs of Vital Signs/I&O Vital Signs Date Time Temp Pulse Resp B/P B/P Pulse O2 O2 Flow FiO2 Mean Ox Delivery Rate 03/28 1444 100 03/28 1310 88 80/00 03/28 1125 100 03/28 0800 98 Ventilator 100% 03/28 08 96.9 84 28 138/60 100 Ventilator 100% 03/28 0755 100 03/28 0755 85 32 138/60 03/28 0614 100 03/28 0600 96.6 88 28 150/67 03/28 0404 81 115/82 03/28 0400 96.6 80 28 115/82 / 0400 100 Ventilator 100% 03/28 0306 100 03/28 0200 96.7 83 28 120/62 03/28 0044 100 / 0031 86 126/66 / 0000 96.7 87 29 105/74 03/28 0000 100 Ventilator 100% / 0000 96.7 87 29 98/00 100 Ventilator 100% 03/27 2256 100 03/27 2200 96.0 102 28 82/44 03/27 2020 68/00 03/27 2000 96.0 66 32 134/57 03/27 2000 92 Ventilator 100% 03/27 1900 100 / 1745 85 80/50 / 1745 85 80/0 03/27 1600 90 22 85/41 10 1600 94 Nasal 2.0L Cannula 03/27 1600 95 Nasal 2.0L Cannula 03/27 1600 90 22 85/41 95 Nasal 2.0L Cannula Intake & Output 03/28 1600 03/28 0800 08 0000 Intake Total 4673 5885 Output Total 250 1450 Balance 4423 4435 Intake, Blood 1800 Product Intake, IV 4673 4085 Intake, Oral 0 0 Number 1 Bowel Movements Output, 250 1450 Gastric Drainage Output, Urine 0 Physical Exam General Appearance: Oriented X3, Cooperative, Moderate Distress Assessment/Plan Assessment: 47-year-old known alcoholic with past medical history of hypertension, anxiety presented to the emergency department with complaint of cramping since 1 day. He also complaining of generalized weakness, vomiting, multiple bruits since 4 days. His labs were significant for the range renal function test, ordering LFTs, pancreatic enzymes. His creatinine#9, CK more than 32,000, lactic acid 2.2, calcium#549 Problems list: =SHERIN/ATN secondary to rhabdomyolysis =Rhabdomyolysis, unclear etiology, may be secondary to Alcohol abuse, drug abuse , statin, =Pancreatitis =Electrolytes derangements including Hyponatremia, Hypocalcemia,Hyperkalemia, hyperphosphatemia =Transaminitis =Imaging evidence of colitis and fatty liver =Acute on chronic normacytic anemia =Thrombocytopenia, maybe 2/2 decreased liver function =PMH of HTN, anxiety, Drug abuse Plan: = Acute kidney injury/rhabdomyolysis: Patient is using methadone,Benzo, morphine, alcohol, statin, and also having history of bee sting and NSAID use. He also went out for work out and drunk alcohol day before yesterday. These all can be the cause of rhabdomyolysis. sudden onset of body aches, cramp [place] [address], derange RFTs and elevated liver enzymes all are in favour or rhabdomyolysis. The patient renal function test and serum electrolyte getting worse serum potassium went up from 4.7 to 6.3, creatinine from 9 to 10.3, BUN from 103 to 130, BUN:Cr ratio from 11.4 to 11.1, H&H from 10-7.5 and 28.9 to 21.7. Patient treatment is started for resistent hyperkalemia, Shifting patient to ICU for critical care and anticipated hemodialysis. Colitis: Patient stool is guaic positive may be due to colitis. Fatty liver: Will resume his previous medication for fatty liver. =Shift to ICUas soon as possible, =Arrange RCC =Arrange FFPs =DVT prophylaxsis =Full code Problem List: 1. Acute renal failure 2. Depression 3. Anxiety 4. Hepatitis 5. Leukocytosis 6. Dehydration 7. Rhabdomyolysis Pain Ratin Pain Location: generalized body aches Pain Goal: Remain pain free Pain Plan: Pain med Tomorrow's Labs & Rationales: Shift top icu Kelli Saha 03/27/18 1059: Attending MD Review Statement Attending Statement Attending MD Statement: examined this patient, discuss w/resident/PA/[employer], agreed w/resident/PA/[employer], discussed with family, reviewed EMR data (avail), discussed with nursing, discussed with case mgmt, reviewed images, amended to note Attending Assessment/Plan: 47 o/m with pmh of htn, anxiety came with chief complaint of muscle cramping and generalsied wekaness and malaise for 4 days. He has bruising of the arms and legs. He had multiple episodes of vomiting but denies blood. He also c/o dark stools with multiple bowel movements. No fever/chills/chest pain/abdominal pain. He works as [employer] and had recently multiple bee stings. Labs Cr 10 CPK >26968 AST/ALT 5661/852 bili elevtaed. Alphos 278 tylenol negative alcohol negative. Lactic acidosis on presntation. Ca 4.7 UA hazy ph 6.0 casts+ urine hemoglobin+, fena>1 CT abd/pelvis colitis in distal ascending colon and transverse colon water shed areas. ASSESSMENT Patient admitted for severe SHERIN with ATN + dehdyration and rhadbomyloysis with metabolic acidosis. ?etiology. Nephrology consult urgent. Aggressive hydration. Monitor urine output, Cruz cathter. Further analysis/type of casts in UA. Check for ethyelene glycol as osmolar gap+. Monitor bun/creatinine. Hepatitis/elevated LFTs. GI consulted, cont supportive care CT abnormal findings possible dehydration r/o mesentric ischemia (low risk factors) Anemia with increased RDW possible acute blood loss anemia. GI on board, PPI iv, serial cbc monitoring. check iron studies. Transfuse to keep hb 7-8 thrombocytopenia monitor platelet count, supprotive care. leukocytosis send stool studies, (?infectious etiology can present with SHERIN/ rhabdo), check for HIV, hepatitis viral etiology. hyperkalemia Agressive correction of electrloytes. insulin dextrose with calcium gluconate. Frequent cbg monitoring. INR 1.6 Mild coagulopathy. GI/dvt prophyalxis full code. Low threshold to transfer to ICU.
[2018-03-27 08:48] LABS: HEMATOCRIT 21.7 % (42-52)
--- NOTE | 2018-03-27 08:52 | Cons- Gastroenterology ---
General Information and HPI Consulting Request Date of Consult: 03/27/18 Requested By: Kelli Saha MD Reason for Consult: I was just notified of a request for a GI consult t0 assess elevated LFTs. 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 There was no GERD, odynophagia, dysphagia, or early satiey. He denied any melena, but noted brown stool with occasional streaks of bright red blood after defecation, which he attributed to hemorrhoids. There was no spontaneous lower GI bleeding. He said he may have had fevers & chills, but no temperature spike was appreciated in the ER. He had no symptoms of UTI or URI, but noted slight decreased urine output. 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 Upon presentation to the ER, BP 96/52, P 90, R 16, T 98.3, O2 sat RA 98%. BP reponded rapidly to IVF. The patient denied taking any aspirin, but did take Motrin for a few days ENGINEERING PROGRAM ANALYST. He denied any significant Tylenol use, recent outpatient antibiotics, or new medications. (He reportedly was on outpt Amlodipine, Atorvastatin, ARON, Remeron, Diovan, & Rozerem). He repeatedly denied any alcohol use, although according to the chart, *the patient's family stated that the patient did drink. He had vague periumbilical discomfort, without radiation. There was scant diarrhea, without any constipation, obstipation, or tenesmus. He was on a statin. He denied any prior history of hepatitis, but did have multiple tattoos. He denied any blood transfusions, IVDA, risk factors for HIV, jaundice, dark urine, light stools, or pruritus. He denied any FHx of GI CVA, GI disease, or inherited liver disease. His gallbladder was intact. He denied any trauma, falls, or prolonged immobilization. He denied any IV contrast ENGINEERING PROGRAM ANALYST. He denied any weight loss, but rather weight gain. He denied any peripheral edema. He was uncertain if he had increased abdominal girth. He was more lethargic than usual, but was A & O x 3. There was no CP or SOB. *He was empirically rxd IV Ceftriaxone, as per the medical team. He was seen once as an outpt by Dr. Tan So for fatty liver on 10/21/17 (* see labs below), but was not compliant with a follow-up visit. He had never had a Fibroscan or liver biopsy. He had never had an EGD or colonoscopy. He denied any prior abdominal surgery. *The patient had multiple metabolic derangements on admission, including SHERIN, with GFR 6, anemia, thrombocytopenia, mild coagulopathy, positive lactate with mild acidosis, mildly elevated lipase, & acute on chronic elevated mixed LFTs ( predominantly transaminitis), & CK > 32K. *Urine toxicology subsequently showed positive benzodiazepine and positive methadone (*although the patient denied any illicit drugs). Old 09/27/04: urine tox previously showed + benzo/OP-MS/ cocaine & cannabis. 01/30/17: WBC 7.9, H/H 13.6/39.4, MCV 88.4, RDW 13.9, PLT 239, BUN/Cr 23/1.0, GFR > 60, albumin 4.3, globulin 3.7, T bili 0.8, alk phos 141, AST 63, ALT 76. 09/02/17: RUQ sono (per PMD)-fatty liver without focal hepatic defect, nl GB, CBD 6 mm. 10/21/17: *Labs per Dr. Tan So-albumin 3.8, globulin 4.1, T bili 1.3, D bili 0.7, alk phos 420, AST 335, ALT 184, Fe 170, TIBC 336, Fe sat 50.6, * ferritin 787, Hep Bs Ag- neg, Hep C Ab- neg, WBC 7.6, H/H 13.9/40.7, MCV 95.5, RDW 14.3, PLT 157, PT 12.1, INR 1.11, RODRÍGUEZ- neg 1:40, anti SLA Ab- neg, borderline anti-smooth muscle Ab 20, AMA < 20, nl ceruloplasmin 25. 03/26/18: *Admission labs-WBC 11.9 (72S/26L/1E), H/H 10.0/28.9, MCV 93, RDW 16.9 , PLT 116, PT 16, INR 1.46, PTT 39, glucose 88, BUN/Cr 103/9.0, GFR 6, Na 130, K 4.7, HCO3 19, AG 18, serum osm 318, + lactate 2.2-> 1.7, lipase 793, Ca 5.8, PO4 8.6, alb 2.7, glob 3.4, TBil 4.3, DBil 3.7, alk phos 376, AST 6928, ALT 1128, CK > 32K, Tylenol < 10, EtOH < 10. 03/26/18: MELD > 32 (*if indeed,cirrhotic) 03/26/18: *Hep A Ab, Hep Bs Ag, Hep b core Ab, Hep C Ab- all negative. 03/27/18: *Tick panel- pending. 03/27/18: U/A- hazy, [place], 1.105, 6.0, 1-3 RBC, 25-50 WBC, 15-25 granular casts , many bacteria, rare epith, mod amorph, large Hgb, + icto, 100+ prot, 0.2 urobilin, neg nitrite, neg esterase. 03/27/18:*Utox- positive benzodiazepine 431, positive methadone > 735. 03/27/18: *Ronnie 74, FENa 5.6, U osm 313. 03/27/18: WBC 11.4 (80S/3B/13L/3M/1E), H/H 7.5/21.7, MCV 94.1, RDW 17.4, PLT 109 03/27/18: BUN/Cr 113/10.3, GFR 5, Na 130, K 6.3, HCO3 14, AG 20, Ca 4.7, PO4 10.2, alb 2.2, glob 2.8, TBil 4.1, DBil 3.6, alk phos 278, AST 5661, ALT 852, * CK- 165,360. 03/27/18: *stool C&S, C. diff- pending. 03/26/18: EKG- NSR @ 90, nl axis, borderline prolonged QT interval, no acute ischemia. 03/26/18: CT ABD & PELVIS W/O IV CONTRAST (*SHERIN)- Hepatomegaly with hepatic steatosis. No focal lesion seen. No dilated ducts. Normal GB. Normal pancreas & spleen (within the limits of a non-IV contrast study). No ascites. Normal kidneys, without hydronephrosis. Nonspecific mild mural thickening involving distal ascending colon and right transverse colon. Nonspecific colitis likely inflammatory or infectious etiology. No proximal bowel obstruction. AP not seen (intact per pt). Scattered sigmoid diverticulosis without diverticulitis. DJD. Allergies/Medications Allergies: Coded Allergies: Penicillins (Severe, UNKNOWN PER PT HAD A REACTION A CHILDHOOD 03/26/18) Home Med List: Amlodipine Besylate 10 MG TABLET 1 TAB PO DAILY HEART (Reported) Atorvastatin Calcium (Unknown Strength) TABLET (Unknown Dose) PO DAILY CHOLESTEROL (Reported) Gabapentin (Neurontin) 300 MG CAPSULE 2 CAP PO TID NERVE PAIN/ANXIETY ( Reported) Mirtazapine (Remeron) (Unknown Strength) TABLET (Unknown Dose) PO QPM SLEEP ( Reported) Ramelteon (Rozerem) 8 MG TABLET 1 TAB PO QPM SLEEP (Reported) Valsartan (Diovan) 80 MG TABLET 1 TAB PO DAILY HEART (Reported) Current Medications: Current Medications Sig/Imani Start time Last Medication Dose Route Stop Time Status Admin Alprazolam 0.5 MG ONCE ONE 03/27 0145 DC 03/27 PO 03/27 0146 0148 Amlodipine Besylate 10 MG DAILY 03/27 900 AC PO Calcium Gluconate 1 GM ONCE ONE 03/27 0430 DC 03/27 Sodium Chloride 100 ML IV 03/27 0529 0511 Ceftriaxone Sodium 1,000 MG DAILY 03/27 900 DC IV Ceftriaxone Sodium 1,000 MG Q24H 03/27 0200 AC 03/27 IV 0148 Folic Acid 1 MG DAILY 03/27 900 AC PO Lorazepam 0 Q1P PRN 03/27 0300 AC 03/27 IV 0851 Oxycodone HCl 5 MG Q6 PRN 03/26 2300 AC 03/26 PO 2350 Pantoprazole Sodium 40 MG DAILY 03/27 09 AC 03/27 IV 0848 Sevelamer HCl 800 MG WM 03/27 1200 DC PO Sevelamer HCl 1,200 MG WM 03/27 1200 UNVr PO Sodium Bicarbonate 75 MEQ Q6H 03/27 0945 AC Sodium Chloride 1,000 ML IV Sodium Chloride 1,000 ML Q6H 03/27 0815 DC 03/27 IV 0848 Sodium Chloride 1,000 ML BOLUS ONE 03/27 0345 DC / IV 03/27 0444 0344 Sodium Chloride 1,000 ML BOLUS ONE 03/27 0345 DC 03/27 IV 03/27 0444 0500 Sodium Chloride 2,000 ML BOLUS ONE 03/27 0330 CAN IV 03/27 0529 Sodium Chloride 1,000 ML ONCE ONE 03/26 1900 DC / IV 03/27 0139 1955 Sodium Chloride 1,000 ML BOLUS ONE 03/26 1745 DC 03/26 IV 03/26 1944 1736 Thiamine HCl 100 MG DAILY 03/27 0900 AC PO Past History Travel History Traveled to [place] past 21 day No Medical History Blood Transfusion Hx: No Neurological: NONE EENT: NONE Cardiovascular: hypertension, hyperlipidemia Respiratory: NONE Gastrointestinal: NONE Hepatic: fatty liver Renal: NONE Musculoskeletal: NONE Psychiatric: anxiety, past hx substance abuse by old Utox Endocrine: obesity Blood Disorders: NONE Cancer(s): NONE 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 MOTHER ([employer]). Age 78. Psychosocial History Where Do You Live? Home Who Do You Live With? spouse (live in girlfriend), child Services at Home: None Primary Language: Amharic Smoking Status: Current Some Day Smoker ETOH Use: denies use (contradicted by family) Illicit Drug Use: denies illicit drug use (old Utox- abnl) Living Will? 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 no Other Social History: Lives with girlfriend. 1 dtr- 10 y/o, [employer]. 1-2 cigarettes daily. Denies EtOH, but contradicted by family. Denies illicit drug use, but contradicted by prior U tox. 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 Functional Ability ADLs Independent: dressing, eating, toileting, bathing. Ambulation: independent IADLs Independent: shopping, housework, finances, food prep, telephone, transportation , medication admin. 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 Review of Systems Constitutional: Reports: chills, fever (not documented), malaise, weakness. Denies: diaphoresis , unexplained weight loss. EENTM: Denies: blurred vision, double vision, visual changes, eye pain, eye drainage, eye tearing, icterus (not noted by pt), ear discharge, ear pain, ear redness, hearing changes, nasal congestion, epistaxis, nasal pain, throat pain, throat swelling, mouth pain, tooth pain. Cardiovascular: Denies: chest pain, edema, orthopena, palpitations, peripheral edema, syncope. Respiratory: Denies: cough, hemoptysis, orthopnea, short of breath, sputum production, stridor, wheezing. GI: Reports: abdominal pain (vague periumbilical), diarrhea (scant), nausea, vomiting. Denies: bloating, constipation, distention, bowel incontinence, melena, bloody stool, steatorrhea. Genitourinary: Denies: no symptoms (decreased urine output), discharge, dysuria, frequency, hematuria, hesitation, nocturia, pain, urgency. Musculoskeletal: Reports: muscle pain (LE B/L). Denies: back pain, gout, joint pain, joint swelling, muscle stiffness, neck pain. Skin: Denies: cysts, change in skin color, change in hair/nails, dryness, erythema, jaundice (not noted by pt), lesions, lymphangitis, lumps, moles, rash. Neurological/Psychological: Reports: anxiety, emotional problems, weakness. Denies: ataxia, cognitive dysfunction, confusion, depressed, dementia, headache, numbness, paresthesia, pre-existing deficit, petit mal seizures, tingling, tremors, tonic-clonic seizures, unable to move lower ext, unable to move upper ext, other. Hematologic/Endocrine: Reports: bruising. Denies: bleeding, polyuria, polydipsia, other. Immunologic/Allergic: Denies: splenectomy, HIV/AIDS, lymphadenopathy. All Other Systems: Reviewed and Negative Exam & Diagnostic Data Vital Signs and I&O Vital Signs Date Time Temp Pulse Resp B/P B/P Pulse O2 O2 Flow FiO2 Mean Ox Delivery Rate 03/27 0551 97.7 96 20 120/60 78 03/27 0059 97.9 87 100/50 95 03/26 2253 97.7 84 20 110/58 94 Room Air 03/26 2155 78 18 102/58 100 Room Air 03/26 2149 Room Air 03/26 1948 97.8 92 20 122/60 98 Room Air 03/26 1729 Room Air 03/26 1656 98.3 90 16 96/52 98 Room Air Intake & Output 03/27 1600 03/27 0400 03/26 1600 03/26 0400 03/25 1600 03/25 0400 Intake Total 2000 Output Total 75 Balance 192 Intake, IV 1999 Intake, Oral 0 Output, Urine 75 Patient 278 lb 272 lb Weight Weight Bed scale Measurement Method Physical Exam: Well-developed, slightly malnourished, obese male, in no apparent distress, although mildly lethargic. Sclera icteric. Conjunctiva slightly pale. Oropharynx clear. Slightly dry mucus membranes. No oral thrush. No aphthous ulcers. There is no adenopathy, thyromegaly, or JVD. No peripheral stigmata of inflammatory bowel disease on exam. +Spiders on the anterior chest wall. Mild gynecomastia B/L (? obesity vs. liver), without masses or D/C. No CVA tenderness. No spine tenderness. Lungs: clear to A&P, with slight decreased BS at the bases B/L. No wheezing, rales, or rhonhi. Heart exam: regular rate rhythm , S1 and S2, without any murmur. Abdominal exam: normal bowel sounds, soft obese belly, minimal periumbilical/right mid abdominal tenderness, without guarding or rebound. No mass. No splenomegaly. Enlarged liver, approximately 20 cm by percussion, with slightly tender edge. negative Fonseca sign. No fluid shift. No pulsatile mass. No epigastric bruit. Digital rectal exam 03/27/18 by myself: brown stool, OB positive, without mass. ? palpable hemorrhoids w/o BRB. Smooth prostate without nodule. Normal sphincter tone. Extremities without cyanosis or clubbing. Trace LE edema B/L. Multiple bruises & ecchymoses on extremities. No gross cellulitis seen. No palpable cords. No palmar erythema. No Dupuytren's contractures. Multiple tattoos. Distal pulses 2+ bilaterally. DTRs 2+ bilaterally. Right handed. Motor 5/5 B/L. Alert and oriented x 3, but slightly lethargic. No tremor. No asterixis. Results Pertinent Lab Results: Laboratory Tests 03/27 03/27 0730 0640 Chemistry Sodium (137 - 145 mmol/L) 130 L Potassium (3.5 - 5.1 mmol/L) 6.3 *H Chloride (98 - 107 mmol/L) 95 L Carbon Dioxide (22 - 30 mmol/L) 14 L Anion Gap (5 - 16) 20 H BUN (9 - 20 mg/dL) 113 *H Creatinine (0.7 - 1.2 mg/dL) 10.3 *H Estimated GFR (>60 ml/min) 5 L BUN/Creatinine Ratio (7 - 25 %) 11.0 Calcium (8.4 - 10.2 mg/dL) 4.7 *L Phosphorus (2.5 - 4.5 mg/dL) 10.2 H Total Bilirubin (0.2 - 1.3 mg/dL) 4.1 H Direct Bilirubin (< 0.4 mg/dL) 3.6 H AST (17 - 59 U/L) 5661 H ALT (21 - 72 U/L) 852 H Alkaline Phosphatase (< 127 U/L) 278 H Creatine Kinase (55 - 170 U/L) Pending Total Protein (6.3 - 8.2 g/dL) 5.0 L Albumin (3.5 - 5.0 g/dL) 2.2 L Hematology CBC w Diff MAN DIFF ORDERED WBC (4.8 - 10.8 /CUMM) 11.4 H RBC (4.70 - 6.10 /CUMM) 2.30 L Hgb (14.0 - 18.0 G/DL) 7.5 L Hct (42 - 52 %) 21.7 L MCV (80.0 - 94.0 FL) 94.1 H MCH (27.0 - 31.0 PG) 32.6 H MCHC (33.0 - 37.0 G/DL) 34.6 RDW (11.5 - 14.5 %) 17.4 H Plt Count (130 - 400 /CUMM) 109 L MPV (7.4 - 10.4 FL) 9.6 Segmented Neutrophils (42.2 - 75.2 %) 80 H Band Neutrophils (0.0 - 5.0 %) 3 Lymphocytes (20.5 - 51.1 %) 13 L Monocytes (1.7 - 9.3 %) 3 Eosinophils (0 - 5.0 %) 1 Platelet Estimate (ADEQUATE) DECREASED Polychromasia 1+ Anisocytosis 1+ Serology Ehrlichia DNA (PCR) Pending Urines Urinalysis MOD H Urine Color (YEL,AMB,STR) [place] Urine Clarity (CLEAR) HAZY H Urine pH (5.0 - 8.0) 6.0 Ur Specific [place] (1.001 - 1.035) 1.015 Urine Protein (NEG,<30 MG/DL) 100 H Urine Ketones (NEG) NEG Urine Nitrite (NEG) NEG Urine Bilirubin (NEG) POS@ICTO H Urine Urobilinogen (0.1 - 1.0 EU/dl) 0.2 Ur Leukocyte Esterase (NEG) NEG Ur Microscopic SEDIMENT EXAMINED Urine RBC (0 - 5 /HPF) 1-3 Urine WBC (0 - 2 /HPF) 25-50 H Ur Epithelial Cells (NONE,FEW) RARE Urine Bacteria (NEG/NONE) MANY H Granular Casts (NONE /LPF) 15-25 H Urine Hemoglobin (NEG) LARGE H Urine Glucose (N MG/DL) NEG 03/27 03/27 03/26 0640 0600 2000 Chemistry Lactic Acid (0.7 - 2.1 mmol/L) 1.7 Serology Lyme Disease Antibody Cancelled Toxicology Urine Opiates Screen (>2000 NG/ML) < 100 Methadone Screen (>300 NG/ML) > 735 H Barbiturate Screen (>200 NG/ML) < 60 Ur Phencyclidine Scrn (>25 NG/ML) < 6.00 Amphetamines Screen (>1000 NG/ML) < 100 U Benzodiazepines Scrn (>200 NG/ML) 431 H Urine Cocaine Screen (>300 NG/ML) < 50 Urine Cannabis Screen (>50 NG/ML) < 5.00 Urines Urine Osmolality (300 - 1000 MOSM/KG) 313 Ur Random Creatinine (mg/dL) 91.1 Ur Random Sodium (30 - 90 mmol/L) 74 Ur Random Potassium (mmol/L) 46.7 Fraction Sodium Excret (<1% %) 5.6 H 03/26 1700 Chemistry Sodium (137 - 145 mmol/L) 130 L Potassium (3.5 - 5.1 mmol/L) 4.7 Chloride (98 - 107 mmol/L) 93 L Carbon Dioxide (22 - 30 mmol/L) 19 L Anion Gap (5 - 16) 18 H BUN (9 - 20 mg/dL) 103 *H Creatinine (0.7 - 1.2 mg/dL) 9.0 *H Estimated GFR (>60 ml/min) 6 L BUN/Creatinine Ratio (7 - 25 %) 11.4 Glucose (65 - 99 mg/dL) 88 Serum Osmolality (285 - 295 MOSM/KG) 318 H Lactic Acid (0.7 - 2.1 mmol/L) 2.2 H Calcium (8.4 - 10.2 mg/dL) 5.8 *L Phosphorus (2.5 - 4.5 mg/dL) 8.6 H Magnesium (1.6 - 2.3 mg/dL) Pending Total Bilirubin (0.2 - 1.3 mg/dL) 4.3 H Direct Bilirubin (< 0.4 mg/dL) 3.7 H AST (17 - 59 U/L) 6928 H ALT (21 - 72 U/L) 1128 H Alkaline Phosphatase (< 127 U/L) 376 H Creatine Kinase (55 - 170 U/L) > 37470 H Total Protein (6.3 - 8.2 g/dL) 6.1 L Albumin (3.5 - 5.0 g/dL) 2.7 L Globulin (1.9 - 4.2 gm/dL) 3.4 Albumin/Globulin Ratio (1.1 - 2.2 %) 0.8 L Lipase (23 - 300 U/L) 793 H 25-OH Vitamin D Total (30 - 100 ng/ml) Pending Coagulation PT (9.4 - 12.5 SEC) 16.0 H INR (0.90 - 1.17) 1.46 H APTT (25 - 37 SEC) 39 H Hematology CBC w Diff MAN DIFF ORDERED WBC (4.8 - 10.8 /CUMM) 11.9 H RBC (4.70 - 6.10 /CUMM) 3.11 L Hgb (14.0 - 18.0 G/DL) 10.0 L Hct (42 - 52 %) 28.9 L MCV (80.0 - 94.0 FL) 93.0 MCH (27.0 - 31.0 PG) 32.2 H MCHC (33.0 - 37.0 G/DL) 34.7 RDW (11.5 - 14.5 %) 16.9 H Plt Count (130 - 400 /CUMM) 116 L MPV (7.4 - 10.4 FL) 9.3 Segmented Neutrophils (42.2 - 75.2 %) 72 Lymphocytes (20.5 - 51.1 %) 26 Monocytes (1.7 - 9.3 %) 1 L Eosinophils (0 - 5.0 %) 1 Platelet Estimate (ADEQUATE) DECREASED Anisocytosis 1+ Target Cells RARE Serology Hepatitis A IgM Ab (NONREACTIVE) Pending Hep Bs Antigen (NONREACTIVE) Pending Hep B Core IgM Ab Conf (NONREACTIVE) Pending Hepatitis C Antibody (NONREACTIVE) Pending Toxicology Acetaminophen (10.0 - 30.0 ug/mL) < 10.0 L Serum Alcohol (<10 MG/DL) < 10.0 Imaging/Other Studies: 03/26/18: EKG- NSR @ 90, nl axis, borderline prolonged QT interval, no acute ischemia. 03/26/18: CT ABD & PELVIS W/O IV CONTRAST (*SHERIN)- Hepatomegaly with hepatic steatosis. No focal lesion seen. No dilated ducts. Normal GB. Normal pancreas & spleen (within the limits of a non-IV contrast study). No ascites. Normal kidneys, without hydronephrosis. Nonspecific mild mural thickening involving distal ascending colon and right transverse colon. Nonspecific colitis likely inflammatory or infectious etiology. No proximal bowel obstruction. AP not seen (intact per pt). Scattered sigmoid diverticulosis without diverticulitis. DJD. 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 There was no GERD, odynophagia, dysphagia, or early satiey. He denied any melena, but noted brown stool with occasional streaks of bright red blood after defecation, which he attributed to hemorrhoids. There was no spontaneous lower GI bleeding. He said he may have had fevers & chills, but no temperature spike was appreciated in the ER. He had no symptoms of UTI or URI, but noted slight decreased urine output. 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 Upon presentation to the ER, BP 96/52, P 90, R 16, T 98.3, O2 sat RA 98%. BP reponded rapidly to IVF. The patient denied taking any aspirin, but did take Motrin for a few days ENGINEERING PROGRAM ANALYST. He denied any significant Tylenol use, recent outpatient antibiotics, or new medications. (He reportedly was on outpt Amlodipine, Atorvastatin, ARON, Remeron, Diovan, & Rozerem). He repeatedly denied any alcohol use, although according to the chart, *the patient's family stated that the patient did drink. He had vague periumbilical discomfort, without radiation. There was scant diarrhea, without any constipation, obstipation, or tenesmus. He was on a statin. He denied any prior history of hepatitis, but did have multiple tattoos. He denied any blood transfusions, IVDA, risk factors for HIV, jaundice, dark urine, light stools, or pruritus. He denied any FHx of GI CVA, GI disease, or inherited liver disease. His gallbladder was intact. He denied any trauma, falls, or prolonged immobilization. He denied any IV contrast ENGINEERING PROGRAM ANALYST. He denied any weight loss, but rather weight gain. He denied any peripheral edema. He was uncertain if he had increased abdominal girth. He was more lethargic than usual, but was A & O x 3. There was no CP or SOB. *He was empirically rxd IV Ceftriaxone, as per the medical team. He was seen once as an outpt by Dr. Tan So for fatty liver on 10/21/17 (* see labs below), but was not compliant with a follow-up visit. He had never had a Fibroscan or liver biopsy. He had never had an EGD or colonoscopy. He denied any prior abdominal surgery. *The patient had multiple metabolic derangements on admission, including SHERIN, with GFR 6, anemia, thrombocytopenia, mild coagulopathy, positive lactate with mild acidosis, mildly elevated lipase, & acute on chronic elevated mixed LFTs ( predominantly transaminitis), & CK > 32K. *Urine toxicology subsequently showed positive benzodiazepine and positive methadone (*although the patient denied any illicit drugs). Old 09/27/04: urine tox previously showed + benzo/OP-MS/ cocaine & cannabis. 01/30/17: WBC 7.9, H/H 13.6/39.4, MCV 88.4, RDW 13.9, PLT 239, BUN/Cr 23/1.0, GFR > 60, albumin 4.3, globulin 3.7, T bili 0.8, alk phos 141, AST 63, ALT 76. 09/02/17: RUQ sono (per PMD)-fatty liver without focal hepatic defect, nl GB, CBD 6 mm. 10/21/17: *Labs per Dr. Tan So-albumin 3.8, globulin 4.1, T bili 1.3, D bili 0.7, alk phos 420, AST 335, ALT 184, Fe 170, TIBC 336, Fe sat 50.6, * ferritin 787, Hep Bs Ag- neg, Hep C Ab- neg, WBC 7.6, H/H 13.9/40.7, MCV 95.5, RDW 14.3, PLT 157, PT 12.1, INR 1.11, RODRÍGUEZ- neg 1:40, anti SLA Ab- neg, borderline anti-smooth muscle Ab 20, AMA < 20, nl ceruloplasmin 25. 03/26/18: *Admission labs-WBC 11.9 (72S/26L/1E), H/H 10.0/28.9, MCV 93, RDW 16.9 , PLT 116, PT 16, INR 1.46, PTT 39, glucose 88, BUN/Cr 103/9.0, GFR 6, Na 130, K 4.7, HCO3 19, AG 18, serum osm 318, + lactate 2.2-> 1.7, lipase 793, Ca 5.8, PO4 8.6, alb 2.7, glob 3.4, TBil 4.3, DBil 3.7, alk phos 376, AST 6928, ALT 1128, CK > 32K, Tylenol < 10, EtOH < 10. 03/26/18: *Hep A Ab, Hep Bs Ag, Hep b core Ab, Hep C Ab- all negative. 03/27/18: *Tick panel- pending. 03/27/18: U/A- hazy, [place], 1.105, 6.0, 1-3 RBC, 25-50 WBC, 15-25 granular casts , many bacteria, rare epith, mod amorph, large Hgb, + icto, 100+ prot, 0.2 urobilin, neg nitrite, neg esterase. 03/27/18:*Utox- positive benzodiazepine 431, positive methadone > 735. 03/27/18: *Ronnie 74, FENa 5.6, U osm 313. 03/27/18: WBC 11.4 (80S/3B/13L/3M/1E), H/H 7.5/21.7, MCV 94.1, RDW 17.4, PLT 109 03/27/18: BUN/Cr 113/10.3, GFR 5, Na 130, K 6.3, HCO3 14, AG 20, Ca 4.7, PO4 10.2, alb 2.2, glob 2.8, TBil 4.1, DBil 3.6, alk phos 278, AST 5661, ALT 852, * CK- 165,360 (*on outpt statin). 03/27/18: *stool C&S, C. diff- pending. 03/26/18: EKG- NSR @ 90, nl axis, borderline prolonged QT interval, no acute ischemia. 03/26/18: CT ABD & PELVIS W/O IV CONTRAST (*SHERIN)- Hepatomegaly with hepatic steatosis. No focal lesion seen. No dilated ducts. Normal GB. Normal pancreas & spleen (within the limits of a non-IV contrast study). No ascites. Normal kidneys, without hydronephrosis. Nonspecific mild mural thickening involving distal ascending colon and right transverse colon. Nonspecific colitis likely inflammatory or infectious etiology. No proximal bowel obstruction. AP not seen (intact per pt). Scattered sigmoid diverticulosis without diverticulitis. DJD. *As of 03/27/18, the patient's LFTs were multifactorial, keeping in mind past history of fatty liver. Previous 10/21/17: extensive serologies per Dr. Tan So were negative (i.e.- viral hep, ceruloplasmin, RODRÍGUEZ, AMA, etc.), aside from elevated ferritin 787, nl Fe sat 50.6%, & borderline anti-smooth muscle Ab 20. He was noncompliant with outpatient GI follow-up. There was a questionable history of EtOH. * Additionally, previous Utox showed polysubstance abuse, including 03/27/18: + benzo/+methadone. Certainly, there could be a toxic metabolic component. The possibility of rhabdomyolysis exists, with markedly elevated transaminases and markedly elevated CK. The patient was borderline hypotensive. His renal function and electrolytes were worsening. His anemia was probably mostly from SHERIN. The mild colitis on CT was a soft finding. He did have brown OB positive stool, but I did not believe that he was having an active GI bleed, and that his other numerous issues took precedence. The mildly elevated lipase was noted, but the patient had a relatively benign abdominal exam, aside from hepatomegaly, without any peritoneal signs. The pancreas appeared normal, within the limits of a non-IV contrast CT. *The patient could be cirrhotic (? progression of steatohepatitis), with reversal of albumin:globulin ratio, thrombocytopenia, mildly elevated INR, spiders on the anterior chest wall, & mild gynecomastia. His 03/27/18: elevated Ronnie 74 & elevated FENa 5.6, seem most consistent with ATN. He was on outpt NSAIDS. Doubt HRS, which should give low Ronnie & low FENa. The patient was too unstable to remain on the floor, & midway through my GI consult, he was becoming hypotensive. I advised a transfer to the ICU for closer monitoring, management of electrolytes & acidosis, & renal consultation for dialysis & probable transfusion. He may ultimately need liver biopsy (*and/or muscle bx-> ? statin, ? bee sting), after stabilization. SUGGEST: Transfer to ICU (done). Renal consult. *Defer to renal for hemodialysis, correction of electrolytes, transfusion, etc. Keep Hgb > 7. Empiric PPI. No NSAIDs. IV hydration. IV bicarb. Consider checking ABG. Serial lytes, CBCs, LFTs, INR. *Consider Doppler of hepatic vein, portal vein. Hold ARB. Hold statin. Check TG. Avoid hepatotoxins. Keep Tylenol use to < 2g daily. Consider checking genetic testing for HHC (i.e.- H63D/C282Y) with elevated ferritin. Consider checking A1AT level. Consider DIC panel. Check HIV. Consider rheumatology input regarding CK. Await 03/27/18: tick panel. Await 03/27/18: stool C&S, C. diff (although no significant diarrhea; mild "colitis" on CT could be from low protein state). DVT prophylaxis with mechanical ALPS. Defer to ICU team regarding empiric antibiotics. Supportive care & tx of other numerous issues, as per ICU team. The patient may ultimately need liver biopsy and/or muscle biopsy, after stabilization, depending on clinical course. Unless the patient actively bleeds, outpt EGD/colonoscopy (previously seen as outpt by Dr. Tan oS). The above was discussed with the medical housestaff in detail. 1 & 1/2 hours of ICU care was spent on the patient. Further GI recommendations to follow, depending on clinical course. Problem List: 1. Rhabdomyolysis 2. Acute renal failure 3. Elevated LFTs 4. Fatty liver 5. Hypotension 6. Anemia 7. Thrombocytopenia 8. Coagulopathy 9. Malnutrition 10. Elevated lipase 11. Colitis 12. Polysubstance abuse 13. Occult blood positive stool Copies To: Rob PARISH,Tonio; Maria A PARISH,Kelli; Jack PARISH,Wilver; Jonah PARISH,Paramjit Banuelos; Judah PARISH,Carlo Santana. Consult Acknowledgment - Thank you for your consult request.
--- NOTE | 2018-03-27 11:34 | Cons- CRCU ---
Diana PARISH,Tosha 03/27/18 1133: General Information and HPI Consulting Request Date of Consult: 03/27/18 Requested By: Dr. Saha Reason for Consult: SHERIN,payton Transaminitis Source of Information: family, old records Exam Limitations: clinical condition, poor historian History of Present Illness: 49 M with a PMH HTN Anxiety who presents with a chief complaint of muscle cramping x 1 day, but has several other complaints as well. Poor historian. States weakness and bruising of the arms and legs that began about 4 days ago. States general myalgias, malaise, weakness x 4 days. States he vomited repeatedly over the past 2 days as well but denies any blood in the vomitus, states vomitus is brown liquid and is not associated with meals. Does state decreased PO intake/appetite. Also states for the past two days he has found non-painful streaks of bright red blood on toilet paper, none in toilet itself. States the color and calibre of his stools have changed; his stools are now dark. States that his stomach is a bit bigger than normal, "holding on to more fluid". He denies any associated fever, cold symptoms, chest pain, dyspnea, abdominal pain or diarrhea. He denies alcohol use or drug use. 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 Eventually did complain of vague epigastric pain after continued questioning. Per triage note: Patient denies etoh abuse but family reports patient uses etoh daily. Has had a prev admission in 04/15/15 with similar creatinine elevations. ED course Vitals: stable afebril, tachycardia 92, RR 20, 98% RA Physical exam as above. Pertinent findings include scleral jaundice, tongue fasciculation, mildly visible subcutaneous veins, no spider nevi, no ab tenderness/waveform/hepatomegaly. -CBC: Leukocytosis 11.9, H/H 10/28.9, thrombocytopenia -CMP: Hyponatremia 130, K 4.7, CR 9.0, Lactic acid 2.2 ->1.7, Hypocalcemia 5.8 w / albumin 2.7 corrected to 6.6 still hypocalcemia, elevated TB/DB 4.3/3.7, markedly transaminitis 6928/1128, ALKP 376, CPK >07418 -PT/INR/DDimer: 16.46 -UA/Microbiology: not received -CT ABD:CT abd/pelvis shows fatty liver. Pancreas and gallbladder are unremarkable. Thickening wall of distal ascending and right transverse colon suggestive of colitis. -Interventions in ER: NS 1000 bolus x 2 Initially the patient was admitted to the general medicine floor, next morning the patient was found to be hypotensive with blood pressure 86/32, morning labs were significant for worsening kidney function with creatinine 10.3, BUN 113, corrected CPK 153750, AST 5661, ALT 852. The medical team spoke to analyst and splicing supervisor Carlton Britton MD, the decision was made t to transfer him to the ICU for further management of his AK I, transaminitis, hypotension Allergies/Medications Allergies: Coded Allergies: Penicillins (Severe, UNKNOWN PER PT HAD A REACTION A CHILDHOOD 03/26/18) Home Med List: Amlodipine Besylate 10 MG TABLET 1 TAB PO DAILY HEART (Reported) Atorvastatin Calcium (Unknown Strength) TABLET (Unknown Dose) PO DAILY CHOLESTEROL (Reported) Gabapentin (Neurontin) 300 MG CAPSULE 2 CAP PO TID NERVE PAIN/ANXIETY ( Reported) Mirtazapine (Remeron) (Unknown Strength) TABLET (Unknown Dose) PO QPM SLEEP ( Reported) Ramelteon (Rozerem) 8 MG TABLET 1 TAB PO QPM SLEEP (Reported) Valsartan (Diovan) 80 MG TABLET 1 TAB PO DAILY HEART (Reported) Review of Systems Review of Systems Constitutional: Reports: see HPI. Past History Travel History Traveled to [place] past 21 day No Medical History Blood Transfusion Hx: No Neurological: NONE EENT: NONE Cardiovascular: hypertension, hyperlipidemia Respiratory: NONE Gastrointestinal: NONE Hepatic: fatty liver Renal: NONE Musculoskeletal: NONE Psychiatric: anxiety, past hx substance abuse by old Utox Endocrine: obesity Blood Disorders: NONE Cancer(s): NONE HOOF TRIMMER/Reproductive: NONE Other Medical Hx: FHx: negative GI, liver, or renal disease Surgical History Surgical History: none Family History Relations & Conditions If Any: FATHER, , Age 56; Cause: Myocardial infarct. MOTHER ([employer]). Age 78. Psychosocial History Where Do You Live? Home Who Do You Live With? spouse (live in girlfriend), child Services at Home: None Primary Language: Monegasque Smoking Status: Current Some Day Smoker ETOH Use: denies use (contradicted by family) Illicit Drug Use: denies illicit drug use (old Utox- abnl) Living Will? no Power of Wildlife Conservation Professor/HCP? no Other Social History: Lives with girlfriend. 1 dtr- 10 y/o, [employer]. 1-2 cigarettes daily. Denies EtOH, but contradicted by family. Denies illicit drug use, but contradicted by prior U tox. Old tattoos. 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 Functional Ability ADLs Independent: dressing, eating, toileting, bathing. Ambulation: independent IADLs Independent: shopping, housework, finances, food prep, telephone, transportation , medication admin. 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 Exam & Diagnostic Data Last 24 Hrs of Vital Signs/I&O Vital Signs Date Time Temp Pulse Resp B/P B/P Pulse O2 O2 Flow FiO2 Mean Ox Delivery Rate 03/27 1000 96.6 89 22 86/32 96 Room Air 03/27 0551 97.7 96 20 120/60 78 03/27 0059 97.9 87 100/50 95 / 2253 97.7 84 20 110/58 94 Room Air 03/26 2155 78 18 102/58 100 Room Air 03/26 2149 Room Air 03/26 1948 97.8 92 20 122/60 98 Room Air 03/26 1729 Room Air 03/26 1656 98.3 90 16 96/52 98 Room Air Intake & Output 03/27 1600 03/27 0800 03/27 0000 Intake Total 2000 Output Total 75 Balance 1925 Intake, IV 2000 Intake, Oral 0 Output, Urine 75 Patient 278 lb 272 lb Weight Weight Bed scale Measurement Method Physical Exam General Appearance: lethargic, moderate distress, obese Ears, Nose, Throat: normal pharynx, normal ENT inspection Neck: supple Respiratory: normal breath sounds Cardiovascular: regular rate/rhythm Gastrointestinal: normal bowel sounds, soft, non-tender, multiple bruises Extremities: normal inspection, no edema, multiple large the largest on the back of the right knee 3X3 cm Neurologic/Psych: no motor/sensory deficits, very lethargic and sleepy Last 48 Hrs of Labs/Osmin: Laboratory Tests 03/27/18 1600: Troponin I Cancelled 03/27/18 1508: Sodium Pending, Potassium Pending, Chloride Pending, Carbon Dioxide Pending, Anion Gap Pending, BUN Pending, Creatinine Pending, Glucose Pending, Calcium Pending, Phosphorus Pending, Magnesium Pending, Total Bilirubin Pending, AST Pending, ALT Pending, Albumin Pending, CBC w Diff Pending, WBC Pending, RBC Pending, Hgb Pending, Hct Pending, MCV Pending, MCH Pending, MCHC Pending, RDW Pending, Plt Count Pending, MPV Pending 03/27/18 1200: pH 7.26 *L, pCO2 25 L, pO2 83, HCO3 11 L, ABG O2 Sat (Measured) 92.0 L, Carboxyhemoglobin 0.3 L, O2 Concentration % 2L, O2 Delivery Method NC, Phlebotomy Draw Site LEFT RADIAL 03/27/18 1145: Ammonia 32 H 03/27/18 1145: Anion Gap 23 H, Estimated GFR 15 L, Glucose 86, Calcium 4.2 *L, Phosphorus 10.9 H, Magnesium 1.7, Total Bilirubin 3.4 H, AST 4947 H, ALT 733 H, Troponin I 0.17 *H, Albumin 1.9 L, Triglycerides 518 H, HIV 1&2 Ab Western Blot Pending 03/27/18 1125: PT Cancelled, INR Cancelled 03/27/18 1125: Lactic Acid 6.9 H, PT 19.6 H, INR 1.79 H, APTT 46 H 03/27/18 1050: Sodium Cancelled, Potassium Cancelled, Chloride Cancelled, Carbon Dioxide Cancelled, Anion Gap Cancelled, BUN Cancelled, Creatinine Cancelled, BUN/ Creatinine Ratio Cancelled, Uric Acid Cancelled, Calcium Cancelled, Phosphorus Cancelled 03/27/18 0730: Anion Gap 20 H, Estimated GFR 5 L, BUN/Creatinine Ratio 11.0, Calcium 4.7 *L, Phosphorus 10.2 H, Total Bilirubin 4.1 H, Direct Bilirubin 3.6 H, AST 5661 H , ALT 852 H, Alkaline Phosphatase 278 H, Creatine Kinase 707862 H, Total Protein 5.0 L, Albumin 2.2 L, CBC w Diff MAN DIFF ORDERED, RBC 2.30 L, MCV 94.1 H, MCH 32.6 H, MCHC 34.6, RDW 17.4 H, MPV 9.6, Segmented Neutrophils 80 H, Band Neutrophils 3, Lymphocytes 13 L, Monocytes 3, Eosinophils 1, Platelet Estimate DECREASED, Polychromasia 1+, Anisocytosis 1+, Ehrlichia DNA (PCR) Pending 03/27/18 0640: Urinalysis MOD H, Urine Color FOZIA, Urine Clarity HAZY H, Urine pH 6.0, Ur Specific [place] 1.015, Urine Protein 100 H, Urine Ketones NEG, Urine Nitrite NEG, Urine Bilirubin POS@ICTO H, Urine Urobilinogen 0.2, Ur Leukocyte Esterase NEG, Ur Microscopic SEDIMENT EXAMINED, Urine RBC 1-3, Urine WBC 25-50 H, Ur Epithelial Cells RARE, Urine Bacteria MANY H, Granular Casts 15-25 H, Urine Hemoglobin LARGE H, Urine Glucose NEG 03/27/18 0640: Urine Opiates Screen < 100, Methadone Screen > 735 H, Barbiturate Screen < 60, Ur Phencyclidine Scrn < 6.00, Amphetamines Screen < 100, U Benzodiazepines Scrn 431 H, Urine Cocaine Screen < 50, Urine Cannabis Screen < 5.00, Urine Osmolality 313, Ur Random Creatinine 91.1, Ur Random Sodium 74, Ur Random Potassium 46.7, Fraction Sodium Excret 5.6 H 03/27/18 0600: Lyme Disease Antibody Cancelled 03/26/18 2000: Lactic Acid 1.7 03/26/18 1700: Anion Gap 18 H, Estimated GFR 6 L, BUN/Creatinine Ratio 11.4, Glucose 88, Serum Osmolality 318 H, Lactic Acid 2.2 H, Calcium 5.8 *L, Phosphorus 8.6 H, Magnesium 1.7, Total Bilirubin 4.3 H, Direct Bilirubin 3.7 H, AST 6928 H, ALT 1128 H, Alkaline Phosphatase 376 H, Creatine Kinase > 45073 H, Troponin I 0.15 *H, Total Protein 6.1 L, Albumin 2.7 L, Globulin 3.4, Albumin/Globulin Ratio 0.8 L, Lipase 793 H, 25-OH Vitamin D Total 14.0 L, PT 16.0 H, INR 1.46 H, APTT 39 H, CBC w Diff MAN DIFF ORDERED, RBC 3.11 L, MCV 93.0, MCH 32.2 H, MCHC 34.7, RDW 16.9 H, MPV 9.3, Segmented Neutrophils 72, Lymphocytes 26, Monocytes 1 L, Eosinophils 1, Platelet Estimate DECREASED, Anisocytosis 1+, Target Cells RARE, Hepatitis A IgM Ab NONREACTIVE, Hep Bs Antigen NONREACTIVE, Hep B Core IgM Ab Conf NONREACTIVE, Hepatitis C Antibody NONREACTIVE, Acetaminophen < 10.0 L, Serum Alcohol < 10.0 Assessment/Plan CRCU Impression/Plan: 49 M with a PMH HTN, Anxiety who presents with a chief complaint of muscle cramping x 1 day, but has several other complaints as well. Poor historian. States weakness and bruising of the arms and legs that began about 4 days ago. States general myalgias, malaise, weakness x 4 days. States he vomited repeatedly over the past 2 days as well but denies any blood in the vomitus, states vomitus is brown liquid and is not associated with meals. Does state decreased PO intake/appetite. 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 Eventually did complain of vague epigastric pain after continued questioning. Initially the patient was admitted to the general medicine floor, next morning the patient was found to be hypotensive with blood pressure 86/32, morning labs were significant for worsening kidney function with creatinine 10.3, BUN 113, corrected CPK 179363, AST 5661, ALT 852. The medical team spoke to analyst and splicing supervisor Carlton Britton MD, the decision was made t to transfer him to the ICU for further management of his AK I, transaminitis, hypertension ABG showed pH 7.26, PCO2 25, bicarb 11 Repeat labs showed: BUN 113, Cr 4.2, K 6.9 Patient will be treated in the ICU for the following conditions: Hypovolemic Shock: On admission patient blood pressure was 96/52 however it improved this AM blood pressure dropped to 88/32, Aggressive IV fluid replacment Blood pressure improved 100/50 after multiple normal saline boluses if BP doesn't improve , will consider pressors to keep MAP above 65 Acute renal failure Patient presented with BUN of 113, creatinine 10.3, phosphorus 10.2,Calcium 4.7 repeated labs showed BUN 113, CR 4.2, Ca 4.3 Phosphorus 10.9 Differential diagnosis includes prerenal due to dehydration, renal due to rhabdomyolysis, and NSAIDs use Patient currently has a pH of 7.26, bicarb 11, PCO2 25 Patient will need urgent dialysis as per discussion with nephrology -Nephrology consult appreciated Place IR David cath for dialysis Hold off sodium bicarbonate for now given his hypocalecemia Hold off calcium gluconate, Ca will be percipitate in the setting of hyperphosphatemia Hypocalcemia: Calcium on admission was 4.7 (corrected calcium 6.1) However the patient phosphorus was 10.2, which can be attributing factor for hypocalcemia We will hold off calcium gluconate since the patient has hyperphosphatemia this with resultant precipitation of the calcium Avoid sodium bicarbonate because it can precipitate more hypocalcemia Hyperkalemia: k this a.m. was 6.3, patient received Kayexalate, in addition this morning at 10 :45 he received insulin and dextrose repeat potassium was 6.9 Most likely due to metabolic acidosis in addition to acute renal failure Deliverer Food was informed pt will need urgent dialysis Give another dose of insulin-dextrose give kayexalate Close monitoring of electrolytes every 4 hours Anion gap Metabolic acidosis -non compensated PH 7.26, PCO2 25, PO2 83, bicarb 11, According to Winter formula PCO2 should be 2327 Most likely due to his acute renal failure in addition to the elevated lactic acid Patient will need urgent hemodialysis Avoid sodium bicarb for now as per nehrology recommendation Continue with aggressive IV fluid rehydration Rhabdomyolysis: It can be one of the contributing causes to acute renal failure Patient had history of multiple bee stings, it can lead to rhabdomyolysis in addition he reported that he was working outdoors without proper hydration. He has widespread bruising all over his body There is no clear history of any other major trauma His CPK was over 16,000 IV fluid hydration Urgent hemodialysis Continue to monitor CK daily Acute Polysubstance abuse/Alcohol abuse/Acute on chronic transmanitins/ Patient has history of polysubstance abuse in addition to alcohol abuse Patient said that his last drink was 1 month ago however the family say that he continues to drink [facility] monitor IV Ativan PRN according to CIAZ protocol Monitor liver function Elevated troponin Troponin 0 0.15 EKG did not show significant STT wave changes Likely due to demand ischemia Elevated lactate: Repeat lactic acid was 6.9 Most likely due to hypoperfusion more than infection Leukocytosis: WBC 11.4, bands 3 UA with positive for WBC Afebrile We will follow-up on pending cultures Trend CBCs Thrombocytopenia: plat 109 which is significantly below his baseline can be due to liver disease or possibly due to uremia will closely monitor his CBC avoid heparin Mild coagulopathy: INR 1.79 , can be related to underlying liver disease due to alcohol abuse Hyper triglyceridemia, elevated lipase level Triglycerides 518, lipase 793 CT abdomen did not show evidence of pancreatitis Possibility of mild acute pancreatitis Full code DVT prophylaxis with ALPs NPO Problem List: 1. Anemia 2. Acute renal failure 3. GI bleed 4. Polysubstance abuse 5. Hypotension 6. Elevated lipase 7. Coagulopathy 8. Elevated LFTs 9. Rhabdomyolysis Consult Acknowledgment - Thank you for your consult request. Nick PARISH,Benjamin 03/27/18 3953: Assessment/Plan CRCU Consult Acknowledgment - Thank you for your consult request. Attending MD Review Statement Attending Statement Attending MD Statement: examined this patient, discuss w/resident/PA/GROCERY STORE CLERK, agreed w/resident/PA/GROCERY STORE CLERK, discussed with family, reviewed EMR data (avail), discussed w/ nursing, discussed w/case mgmt, reviewed images, amended to note Attending Assessment/Plan: Impression 47 year old man * Acute renal failure - broad differential - pre-renal/rhabdomyolysis/ingestion * asystolic cardiac arrest about 32 minutes * circulatory shock * metabolic acidosis * hyperkalemia, hypocalcemia * elevated liver enzymes * substance dependence/etoh/benzodiazepine use reportedly * elevated TG/elevated Lipase Plan Respiratory -intubated -mechanically ventilated -monitor abgs -bicarbonate drip given ph -monitor cxr ID -unasyn for probable aspiration pneumonia -f/u cultures CVS -monitor hemodynamics -levophed -vasopressin -titrate to MAP >65 -no plan for hypothermia given significant coagulopathy and ongoing bleeding as hypothermia can worsen coagulation cascade Heme -s/p rapid transfusion -current hgb 7.3, continue to monitor q4 at least unless new bleeding -GI appreciated -pt does not require urgent endoscopy given no continued bleeding and more so likely coagulopathy -ffp, prbcs, platelets administered -DDAVP administered -DIC workup -octreotide, ppi Metabolic -HD -nephrology appreciated -will determine further need of bicarbonate -monitor electrolytes -hyperkalemia definitively addressed by dialysis Alimentary -NPO Neuro -s/p arrest -dilated pupils -when more stable will check ct head DVT prophylaxis - ALPS TTS 85 minutes initially After cardiac arrest an additional 60 minutes was spent to recover patient in the ICU Family updated by housestaff Patient is critically ill, he requires ICU stay his prognosis is grim
[2018-03-27 12:13] LABS: PT 19.6 SEC (9.4-12.5); PTT 46 SEC (25-37)
--- NOTE | 2018-03-27 13:24 | Event Note ---
Event Note Event Note: Patient needs an emergent iain for HD access. Nephrology, hospitalist agree. Will proceed on an emergent basis. More documentation to follow. D/w IR.
[2018-03-27 16:09] LABS: ABSOLUTE BASOPHIL COUNT 0 /CUMM (0.0-0.2); ABSOLUTE EOSINOPHIL COUNT 0 /CUMM (0.0-0.7); ABSOLUTE GRANULOCYTE CT 11.5 /CUMM (1.4-6.5); ABSOLUTE MONOCYTE COUNT 0.6 /CUMM (0.10-0.60); BASOPHIL % 0 % (0.0-2.0); EOSINOPHIL % 0 % (0-5); MEAN CORPUSCULAR HGB CONC 34.6 G/DL (33.0-37.0); MEAN CORPUSCULAR VOLUME 95.3 FL (80.0-94.0); MEAN PLATELET VOLUME 9.7 FL (7.4-10.4); PLATELET COUNT 97 /CUMM (130-400); RED BLOOD CELL CT 1.85 /CUMM (4.70-6.10); WHITE BLOOD CELL COUNT 15.1 /CUMM (4.8-10.8)
--- NOTE | 2018-03-27 16:25 | Event Note ---
Event Note Event Note: At 4:25 I called the lab to check on the results found that the patient has creatinine of 28, potassium 6.9, Patient was given another dose of insulin dextrose, he was given a dose of Kayexalate earlier MD Laron was informed and he recommended to repeat serum creatinine and potassium stat Also Dr. Romero was made aware, and he recommended to send the patient for dialysis ALETHEA We will recheck of the creatinine level We will follow-up on the repeat labs and ABG Update: Recheck showed creatinine of 28, Dr Comer was informed
--- NOTE | 2018-03-27 16:31 | INTERVENTIONAL RADIOLOGY RPT ---
PROCEDURE: ULTRASOUND AND FLUOROSCOPICALLY GUIDED RIGHT INTERNAL JUGULAR VEIN TEMPORARY DIALYSIS CATHETER PLACEMENT INTERVENTIONAL RADIOLOGIST: Ezra Meredith M.D. CLINICAL HISTORY: 47-year-old male with renal failure. COMPARISON: Chest CT 04/06/2015 MEDICATION: 1% lidocaine was used for local anesthetic. FLUOROSCOPY TIME: 0.4 minutes NUMBER OF IMAGES: 3 images TECHNIQUE: Informed consent was obtained from the patient prior to the procedure. During this process, the procedure and potential alternatives were explained along with the intended outcome and benefits. The risks of the procedure, including the possibility of an unsuccessful procedure, as well as the risk of not doing the procedure were discussed. The patient was given the opportunity to ask questions regarding the procedure and appeared competent to make medical decisions. A signed consent form which documents this discussion was placed in the medical record. Although the patient was alert and oriented x3, per report, there has been instances of confusion recently on the floor. For this reason, the case was discussed with Dr. Romero. He discussed the case with the light truck driver and hospitalist and all believed this catheter placement was needed emergently and therefore he also declared emergency consent. Following informed consent the patient was placed supine on the fluoroscopic table. A timeout procedure was performed. The right neck and chest were prepped and draped in usual sterile fashion. All elements of maximal sterile barrier technique were followed including use of cap, mask, sterile gown, sterile gloves, a sterile full body drape and hand hygiene. The skin was prepared with 2% chlorhexidine for cutaneous antisepsis and sterile ultrasound preparation with sterile gel and probe cover was performed when applicable. Using ultrasound guidance the right internal jugular vein was localized. Ultrasound was utilized to assess the vascular structures for access. A standard puncture into the right internal jugular vein was performed with a Micro-Stick system. The wire was advanced into the IVC to confirm venous placement. Over the wire dilatation was performed and a temporary hemodialysis catheter was advanced over the wire. Catheter terminates in the high right atrium. Silk suture was utilized for catheter securement. The patient tolerated the procedure well. The patient was transferred back to the floor in stable condition. ULTRASOUND-GUIDED VASCULAR ACCESS: Ultrasound was used to identify the right internal jugular vein. The right internal jugular vein was confirmed to be patent. Real time imaging confirmed needle access into the right internal jugular vein. An image was saved for permanent recording in PACS. IMPRESSION: Successful placement of temporary hemodialysis catheter via the right internal jugular vein.
[2018-03-27 16:48] LABS: HEMATOCRIT 17.6 % (42-52)
--- NOTE | 2018-03-27 16:53 | Admission Certification ---
Admission Certification Certification Statement - As attending physician, I certify that at the time of - admission, based on clinical presentation, severity of - symptoms, need for further diagnostic testing and - therapeutic interventions, and risk of adverse outcomes - without in-hospital treatment, in my clinical assessment, - this patient requires an acute hospital stay for a minimum - of two nights or longer. I have also considered psychsocial - factors such as support system, advanced age, financial - issues, cognitive issues, and failed out-patient treatments, - past re-admission history, safety of patient, and lack of - compliance as applicable. Specific rationale supporting this admission is: acute kidney injury, rhabdomyolysis, hypocalcemia, hyperkalemia, elevated LFTs ICU level of care
[2018-03-27 17:38] LABS: ABSOLUTE BASOPHIL COUNT 0 /CUMM (0.0-0.2); ABSOLUTE EOSINOPHIL COUNT 0 /CUMM (0.0-0.7); ABSOLUTE GRANULOCYTE CT 10.8 /CUMM (1.4-6.5); ABSOLUTE LYMPH COUNT 3.7 /CUMM (1.2-3.4); ABSOLUTE MONOCYTE COUNT 0.6 /CUMM (0.10-0.60); BASOPHIL % 0.3 % (0.0-2.0); EOSINOPHIL % 0 % (0-5); MEAN CORPUSCULAR HGB 32.7 PG (27.0-31.0); MEAN CORPUSCULAR HGB CONC 33.6 G/DL (33.0-37.0); MEAN CORPUSCULAR VOLUME 97.2 FL (80.0-94.0); MEAN PLATELET VOLUME 9.8 FL (7.4-10.4); PLATELET COUNT 93 /CUMM (130-400); RED BLOOD CELL CT 1.69 /CUMM (4.70-6.10); WHITE BLOOD CELL COUNT 15.3 /CUMM (4.8-10.8)
[2018-03-27 17:43] LABS: HEMATOCRIT 16.4 % (42-52)
[2018-03-27 18:40] LABS: ABSOLUTE BASOPHIL COUNT 0 /CUMM (0.0-0.2); ABSOLUTE EOSINOPHIL COUNT 0 /CUMM (0.0-0.7); ABSOLUTE GRANULOCYTE CT 5.6 /CUMM (1.4-6.5); ABSOLUTE LYMPH COUNT 3.8 /CUMM (1.2-3.4); ABSOLUTE MONOCYTE COUNT 0.4 /CUMM (0.10-0.60); BASOPHIL % 0.2 % (0.0-2.0); EOSINOPHIL % 0.2 % (0-5); GRANULOCYTE % 56.8 % (42.2-75.2); MEAN CORPUSCULAR HGB 31.1 PG (27.0-31.0); MEAN CORPUSCULAR HGB CONC 32.8 G/DL (33.0-37.0); MEAN CORPUSCULAR VOLUME 94.9 FL (80.0-94.0); MEAN PLATELET VOLUME 10.2 FL (7.4-10.4); RBC DISTRIBUTION WIDTH 16.9 % (11.5-14.5); WHITE BLOOD CELL COUNT 9.8 /CUMM (4.8-10.8)
[2018-03-27 18:41] LABS: RED BLOOD CELL CT 2.34 /CUMM (4.70-6.10)
[2018-03-27 18:44] LABS: HEMATOCRIT 22.2 % (42-52); PLATELET COUNT 49 /CUMM (130-400)
--- NOTE | 2018-03-27 18:49 | Event Note ---
Event Note Event Note: I returned to the ICU approximately 6 p.m. on 03/27/18, to see the patient again , at the request of Dr. De Los Santos. The patient coded late this afternoon & had CPR for 34 minutes. He was intubated & found to have coffee grounds from above & melena from below (previously brown stool, OB+), in the setting of innumerable profound metabolic abnormalities. The ICU team is attempting to stabilize him for dialysis. His creatinine from earlier this afternoon came back at 28!! The patient is currently on max dose Levophed, with additional pressors to be added. His pH came back at 6.93, with a profound metabolic acidosis. He was oozing from various sites, and certainly could be in DIC. Additionally, most recent BUN/Cr 114/11.1, GFR 5, HCO3 9, lactate 10.5, Ca 4.2, K 7.3, etc.!! WBC 15.3, H /H5 0.5/16.5, PLT 94. The patient's mother was on vacation and was contacted by the medical housestaff, regarding the above. Please note, the patient had illicit drugs on board, on his Utox. I had a long discussion with Dr. De Los Santos and Dr. Romero of the ICU team, Dr. Mckenzie of renal, & Dr. Preciado, of anesthesia. *Clearly, the patient is currently not in any position to safely undergo endoscopy, & they concur. I am not certain the patient will survive the evening, based on his numerous metabolic derangements. I advised continued ICU stabilization, continued HCO3, pressors, vent support, & hopeful hemodialysis, to correct his electrolytes. He should continue to be transfused PRBC as needed. I advised checking a DIC panel & giving FFP as needed. I also advised a Protonix bolus of 80 mg IV, followed by an 8 mg/hr IV Protonix drip. I also advised empirically starting Octreotide 50 mcg IV bolus, followed by a 50 mcg/hr IV Octreotide drip, in case the above may be variceal in nature. If the patient survives his current situation, he can be reassessed for EGD down the road. The above was discussed with the ICU medical house staff, as well.
--- NOTE | 2018-03-27 18:57 | Cons- Nephrology ---
General Information and HPI Consulting Request Date of Consult: 03/27/18 Requested By: Benjamin Romero MD Reason for Consult: SHERIN Source of Information: patient, old records Exam Limitations: clinical condition, confusion, poor historian History of Present Illness: I have been asked to see this 47-year-old male because of severe renal failure. He was admitted last evening complaining of myalgias and several days of vomiting. I saw him earlier this morning. Serum creatinine was initially 9.0 yesterday, rising to 10.3 this morning with a serum potassium level of 6.3 and CO2 14. Calcium was noted to be markedly low at 4.7 with a phosphorus of 10.2. CK level last evening was reported as greater than 32,000 and this morning was 165,360. 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 No details available. Of note is the fact that in 2014 he also presented with a creatinine of 12.9 which rapidly corrected down to 0.9 in only 2 days with aggressive IV hydration at that time. The patient denied any ingestion of potential nephrotoxins including NSAIDs. However he also denies using methadone which was found in his urine and states that he has not been drinking alcohol for over a month but this has been contradicted by his family. There is been no fever or chills and no overt blood loss. He denies any specific area of muscular, joint or other pain. Past medical history positive for hypertension, hyperlipidemia, previous bout of acute kidney injury as noted above, and reputedly both alcohol and drug dependence. 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 Allergies/Medications Allergies: Coded Allergies: Penicillins (Severe, UNKNOWN PER PT HAD A REACTION A CHILDHOOD 03/26/18) Home Med List: Amlodipine Besylate 10 MG TABLET 1 TAB PO DAILY HEART (Reported) Atorvastatin Calcium (Unknown Strength) TABLET (Unknown Dose) PO DAILY CHOLESTEROL (Reported) Gabapentin (Neurontin) 300 MG CAPSULE 2 CAP PO TID NERVE PAIN/ANXIETY ( Reported) Mirtazapine (Remeron) (Unknown Strength) TABLET (Unknown Dose) PO QPM SLEEP ( Reported) Ramelteon (Rozerem) 8 MG TABLET 1 TAB PO QPM SLEEP (Reported) Valsartan (Diovan) 80 MG TABLET 1 TAB PO DAILY HEART (Reported) Past History Travel History Traveled to [place] past 21 day No Medical History Blood Transfusion Hx: No Neurological: NONE EENT: NONE Cardiovascular: hypertension, hyperlipidemia Respiratory: NONE Gastrointestinal: NONE Hepatic: fatty liver Renal: NONE Musculoskeletal: NONE Psychiatric: anxiety, past hx substance abuse by old Utox Endocrine: obesity Blood Disorders: NONE Cancer(s): NONE 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 MOTHER ([employer]). Age 78. Psychosocial History Where Do You Live? Home Who Do You Live With? spouse (live in girlfriend), child Services at Home: None Primary Language: Danish Smoking Status: Current Some Day Smoker ETOH Use: denies use (contradicted by family) Illicit Drug Use: denies illicit drug use (old Utox- abnl) Living Will? no Power of Dat Instructor/HCP? no Other Social History: Lives with girlfriend. 1 dtr- 10 y/o, [employer]. 1-2 cigarettes daily. Denies EtOH, but contradicted by family. Denies illicit drug use, but contradicted by prior U tox. 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 Functional Ability ADLs Independent: dressing, eating, toileting, bathing. Ambulation: independent IADLs Independent: shopping, housework, finances, food prep, telephone, transportation , medication admin. 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 Exam & Diagnostic Data Vital Signs and I&O Vital Signs Date Time Temp Pulse Resp B/P B/P Pulse O2 O2 Flow FiO2 Mean Ox Delivery Rate 03/27 1200 88 22 100/60 03/27 1200 98 Nasal 2.0L Cannula 03/27 1000 96.6 89 22 86/32 96 Room Air 03/27 0551 97.7 96 20 120/60 78 03/27 0059 97.9 87 100/50 95 03/26 2253 97.7 84 20 110/58 94 Room Air 03/26 2155 78 18 102/58 100 Room Air 03/26 2149 Room Air 03/26 1948 97.8 92 20 122/60 98 Room Air Intake & Output 03/27 1600 03/27 0400 03/26 1600 03/26 0400 03/25 1600 03/25 0400 Intake Total 3750 Output Total 75 Balance 3675 Intake, IV 3750 Intake, Oral 0 Output, Urine 75 Patient 278 lb 272 lb Weight Weight Bed scale Measurement Method Physical Exam: General: Chronically and acutely ill-appearing white male, episodically confused but at times able to transmit some historical information Skin: Pale, no rash, +/-jaundice HEENT: Conjunctivae pale, sclerae icteric, mucous membranes dry Neck: Without masses or thyromegaly, no supraclavicular or cervical adenopathy Chest: Clear anterolaterally Heart: Regular rate and rhythm without S3 or rub Abdomen: Obese, distended, soft and nontender without palpable masses or organomegaly Extremities: Without cyanosis or edema Neuro: No focal findings, no asterixis or myoclonus Assessment/Plan Assessment/Recommendations Assessment: 47-year-old man with severe SHERIN secondary to rhabdomyolysis and dehydration with associated hypotension, hyperkalemia, hyperphosphatemia and hypocalcemia. He also has elevated LFTs, and is anemic and thrombocytopenic which I suspect may be related to underlying chronic liver disease as well as possible shock liver. Alcoholic hepatitis is also a possibility. Recommendations: 1. Proceed with placement of a temporary IJ dialysis catheter (done) 2. IV fluids at 250 cc/h after another bolus of 500 cc; pressor support 3. If patient able to take p.o., give Kayexalate 30 g p.o. 1 and repeat as necessary 4. Insulin/glucose every few hours as needed for potassium control pending initiation of dialysis 5. Consider intubation for airway protection 6. We will discuss issues of acidemia, hypocalcemia and hyperphosphatemia with you after next set of labs. 7. Hemodialysis as feasible -if blood pressure allows. Thank you. We will follow closely with you. Prognosis is quite poor.
[2018-03-27 19:04] LABS: PT 27.6 SEC (9.4-12.5)
[2018-03-27 19:12] LABS: PTT > 120 SEC (25-37)
--- NOTE | 2018-03-27 19:36 | RADIOLOGY REPORT ---
EXAMINATION: XR PORTABLE CHEST CLINICAL INFORMATION: Intubated. COMPARISON: Chest CT of 04/14/2015. Chest x-rays of 04/14/2015 and 05/12/2006. TECHNIQUE: Portable frontal view of the chest was obtained. FINDINGS: Significant portion of the right lateral chest is not included in the [id number]. An endotracheal tube is noted, terminating 3.8 cm above the sheree. Right internal jugular venous approach dialysis catheter terminates in the lower SVC. The lungs are hypoexpanded. Multiple cardiac leads and wires overlie the chest. An enteric tube is in place however its distal end is difficult to visualize and does not appear to be crossing below the diaphragm. Central pulmonary congestion. IMPRESSION: Limited evaluation. Endotracheal tube terminates 3.8 cm above the sheree. Distal end of the enteric tube is not clearly visualized, likely in the distal esophagus.
--- NOTE | 2018-03-27 19:54 | Event Note ---
Event Note Event Note: CODE 3 NOTE: The patient is a 49-year-old male who was admitted on 03/26/2018 with complaints of cramping, vomiting, dark stools, and vague epigastric pain. The patient was reported as a poor historian in the chart. There is a history of alcohol use daily for the chart. In the ED, the patient was found to have acute renal failure and be in rhabdomyolysis as well as mildly anemic and hypotensive which responded to fluids. The patient was treated overnight and was awake and alert this morning. The patient was evaluated by multiple physicians throughout the day including the hospitalist, GI and nephrology. The patient was transferred from the general medical floor to the critical care unit for hypotension which responded to IV fluids, and worsening renal failure on laboratory studies. The patient had a David catheter placed without incident for impending dialysis. As per staff, post catheter placement, the patient was awake but became progressively confused and quickly obtunded. Housestaff called anesthesia for intubation for airway protection. Prior to intubation, a code 3 was called which I responded to. Upon my arrival, the patient was severely bradycardic, pulseless and in respiratory arrest. He quickly converted to asystole. CPR had been initiated simultaneously at the time of the cardiac arrest. CPR/ACLS was performed as per protocol protocol. During the code, the patient was in ventricular fibrillation and shocked twice. Following the second defibrillation, the patient had a short period of ROSC, with a low palpable BP. After a few minutes, he became bradycardic and was in PEA and then asystole. The patient received multiple medications during the event. He received Insulin 10 units with amp of D50 x 2, calcium gluconate, HCO3, IV magnesium, IV amiodarone, NS, and levophed. During the event, he was noted to have severe upper GI bleeding, noting the patient was suctioned 1 L of reddish/bloody liquid. He had melena as well. The massive transfusion protocol was activated and the patient was transfused aggressively during the code. Blood was delivered through the rapid transfuser. A right groin TLC was placed. During the code, the patient was oozing blood through all orifaces. After 34 minutes, the patient had ROSC with a BP of 110 mm Hg/ palp. He was bradycardic and given atropine 1 mg x 2 doses. GI, nephrology and cardiology were all at the bedside during the events. Following the code, the patient continued to demonstrate active bleeding. FFP x 4 units are being transfused. Platelets and cryoprecipitate have been ordered stat. DDAVP given. The patient has continued to drop his BP despite remaining on Levophed, thus vasopressin and neosynephrine were started with improvement in the BP. An isotonic bicarb drip was continued wide open for post arrest pH of 6.93 and renal failue. All repeat labs and ABG were reviewed. CXR post arrest is pending. EGD was considered by GI however the patient was too unstable for the procedure. The patient is currently undergoing dialysis. The patient is critically ill and has a poor prognosis. We will continue to follow his labs closely post dialysis. He will be closely monitored and treated for hemorrhagic shock, DIC, electrolyte abnormalities and renal failure. He is at high risk for anoxic brain injury. Therapeutic hypothermia was considered however due to the hemodynamic instability and massive bleeding, he is not an appropriate candidate. The patient will be monitored by the ICU team overnight. I informed the [facility] end worker of all events who was also at the bedside. TTS 120 min.
--- NOTE | 2018-03-27 20:27 | Proc Note Cardiology ---
Cardiology Procedure Procedure Date: 03/27/18 Cardiology Procedure(s): triple lumen catheter Pre-Operative Diagnosis: GI bleed s/p cardiac arrest Post-Operative Diagnosis: same Estimated Blood Loss: scant Anesthesia: local with lidocaine Procedure Findings: Mr. Kunz is a 47 year old male with history of renal failure with hyperkalemia and acute GI bleed. In that setting the patient had a cardiac arrest. A triple lumen catheter was placed for improved access. The patient underwent emergent placement of a triple lumen catheter under sterile conditions after receiving local anesthesia with lidocaine. Using the Seldinger technique a triple lumen catheter was placed in the right femoral vein over a wire and was sutured into place. No complications.
[2018-03-27 22:45] LABS: ABSOLUTE BASOPHIL COUNT 0 /CUMM (0.0-0.2); ABSOLUTE EOSINOPHIL COUNT 0 /CUMM (0.0-0.7); ABSOLUTE GRANULOCYTE CT 6.6 /CUMM (1.4-6.5); ABSOLUTE LYMPH COUNT 2.2 /CUMM (1.2-3.4); ABSOLUTE MONOCYTE COUNT 0.1 /CUMM (0.10-0.60); BASOPHIL % 0.3 % (0.0-2.0); EOSINOPHIL % 0 % (0-5); GRANULOCYTE % 73.6 % (42.2-75.2); MEAN CORPUSCULAR HGB 30.6 PG (27.0-31.0); MEAN CORPUSCULAR HGB CONC 33.9 G/DL (33.0-37.0); MEAN CORPUSCULAR VOLUME 90.3 FL (80.0-94.0); MEAN PLATELET VOLUME 9.1 FL (7.4-10.4); RBC DISTRIBUTION WIDTH 16.4 % (11.5-14.5); WHITE BLOOD CELL COUNT 8.9 /CUMM (4.8-10.8)
[2018-03-27 22:49] LABS: HEMATOCRIT 41.2 % (42-52); PLATELET COUNT 96 /CUMM (130-400); RED BLOOD CELL CT 4.56 /CUMM (4.70-6.10)
[2018-03-27 22:55] LABS: PT 16.5 SEC (9.4-12.5); PTT 66 SEC (25-37)
--- NOTE | 2018-03-27 23:19 | Event Note ---
See Addendum Event Note Event Note: pt on 3 vasopressors levophed, vasopressin, neosynephrine cursory bedside echo performed by myself without evidence of gross pericardial effusion, contractility at this time appears normal. no further vasoactive agents will be added at this time. Poor prognosis.
[2018-03-28] VITALS: BP 105/74; BP 98/00
[2018-03-28 02:00] VITALS: BP 120/62
[2018-03-28 04:00] VITALS: BP 115/82
[2018-03-28 04:29] LABS: PT 23.6 SEC (9.4-12.5)
[2018-03-28 04:30] LABS: ABSOLUTE BASOPHIL COUNT 0 /CUMM (0.0-0.2); ABSOLUTE EOSINOPHIL COUNT 0 /CUMM (0.0-0.7); ABSOLUTE GRANULOCYTE CT 8.4 /CUMM (1.4-6.5); ABSOLUTE LYMPH COUNT 2.1 /CUMM (1.2-3.4); ABSOLUTE MONOCYTE COUNT 0.4 /CUMM (0.10-0.60); EOSINOPHIL % 0 % (0-5); MEAN CORPUSCULAR HGB CONC 34.3 G/DL (33.0-37.0)
[2018-03-28 04:39] LABS: BASOPHIL % 0.1 % (0.0-2.0); GRANULOCYTE % 76.9 % (42.2-75.2); MEAN CORPUSCULAR HGB 30.7 PG (27.0-31.0); MEAN CORPUSCULAR VOLUME 89.5 FL (80.0-94.0); MEAN PLATELET VOLUME 9.8 FL (7.4-10.4); RBC DISTRIBUTION WIDTH 16.8 % (11.5-14.5); WHITE BLOOD CELL COUNT 10.9 /CUMM (4.8-10.8)
[2018-03-28 04:41] LABS: RED BLOOD CELL CT 3.25 /CUMM (4.70-6.10)
[2018-03-28 04:42] LABS: HEMATOCRIT 29.1 % (42-52); PLATELET COUNT 77 /CUMM (130-400)
[2018-03-28 06:00] VITALS: BP 150/67
[2018-03-28 08:00] VITALS: BP 138/60
[2018-03-28 08:10] LABS: ABSOLUTE BASOPHIL COUNT 0 /CUMM (0.0-0.2); ABSOLUTE EOSINOPHIL COUNT 0 /CUMM (0.0-0.7); ABSOLUTE GRANULOCYTE CT 7.8 /CUMM (1.4-6.5); ABSOLUTE LYMPH COUNT 2.3 /CUMM (1.2-3.4); ABSOLUTE MONOCYTE COUNT 0.4 /CUMM (0.10-0.60); BASOPHIL % 0.1 % (0.0-2.0); EOSINOPHIL % 0.1 % (0-5); GRANULOCYTE % 73.8 % (42.2-75.2); HEMATOCRIT 26.5 % (42-52); MEAN CORPUSCULAR HGB 30.9 PG (27.0-31.0); MEAN CORPUSCULAR HGB CONC 34.4 G/DL (33.0-37.0); MEAN CORPUSCULAR VOLUME 89.8 FL (80.0-94.0); MEAN PLATELET VOLUME 9.5 FL (7.4-10.4); RBC DISTRIBUTION WIDTH 17.4 % (11.5-14.5); RED BLOOD CELL CT 2.95 /CUMM (4.70-6.10); WHITE BLOOD CELL COUNT 10.6 /CUMM (4.8-10.8)
--- NOTE | 2018-03-28 08:12 | RADIOLOGY REPORT ---
EXAMINATION: XR PORTABLE CHEST CLINICAL INFORMATION: Intubated COMPARISON: Portable chest 03/27/2018 at 1834 hours, portable chest 04/14/2015 TECHNIQUE: Portable upright AP view of the chest was obtained. FINDINGS: Endotracheal tube tip is 5.2 cm above sheree. Right internal jugular central line tip at confluence SVC and right atrium. The NG tube is poorly visualized against background film attenuation, likely below diaphragm. There are low lung volumes with inspiration to the 6 posterior ribs. Bilateral atelectasis is seen in mid zones. There is coarsening of the bronchiolar markings. No lobar or segmental airspace consolidation or obvious effusion. IMPRESSION: 1. ET tube 5.2 cm above sheree. 2. Right internal jugular line tip at confluence SVC and right atrium. 3. NG tube poorly visualized, likely below diaphragm with manipulation of film windows. 4. Low lung volumes. Bilateral mid zone atelectasis.
[2018-03-28 08:36] LABS: PLATELET COUNT 67 /CUMM (130-400)
--- NOTE | 2018-03-28 08:51 | PN- Resident CRCU ---
Abby PARISH,Michelle 03/28/18 0850: Subjective HPI/CRCU Issues: 1. Hemorrhagic shock with multiorgan failure on 3 pressors 2. S/P cardiac arrest - CPR for 32 min 3. Acute renal failure with rhabdomyolysis - status post dialysis 4. DIC status post massive transfusion protocol 5. Significant gastrointestinal bleeding with probable abdominal compartment syndrome 6. Significant anion gap metabolic acidosis 7. Hypotensive episode during dialysis on maximal percent support 8. Multiple electrolyte abnormalities - hypocalcemia, hyperkalemia, hyperphosphatemia 24 Hour Events: Patient sustained cardiopulmonary arrest yesterday with aggressive resuscitation for 32 minutes. He received 10 units of PRBC, 1 unit of cryoprecipitate, 1 FFP and one DDAVP after and during the arrest. He remained hemodynamically stable on maximal pressor support (epinephrine, norepinephrine, vasopressin). Maintained on IV octreotide and IV pantoprazole and IV bicarbonate drip till today morning. Underwent 3 hour dialysis session yesterday without any fluid removal. He underwent dialysis today and sustained hypotension due to which it was withheld. He remained bradycardic throughout the day. Family meeting held and they want everything to be done. He coded twice after 3pm, family decided on withholding care during CPR second time. Pronounced at 16:18pm. Objective Vital Signs & I&O Last 8 Hrs of Vitals and I&O: Vital Signs Date Time Temp Pulse Resp B/P B/P Pulse O2 O2 Flow FiO2 Mean Ox Delivery Rate 03/28 0755 85 32 138/60 03/28 0614 100 03/28 0600 96.6 88 28 150/67 03/28 0404 81 115/82 03/28 0400 96.6 80 28 115/82 03/28 0400 100 Ventilator 100% 03/28 0306 100 03/28 0200 96.7 83 28 120/62 03/28 0044 100 03/28 0031 86 126/66 03/28 0000 96.7 87 29 105/74 / 0000 100 Ventilator 100% 03/28 0000 96.7 87 29 98/00 100 Ventilator 100% 03/27 2256 100 03/27 2200 96.0 102 28 82/44 08/10 2020 68/00 03/27 2000 96.0 66 32 134/57 03/27 2000 92 Ventilator 100% 03/27 1900 100 03/27 1745 85 80/50 03/27 1745 85 80/0 03/27 1600 90 22 85/41 03/27 1600 94 Nasal 2.0L Cannula 03/27 1600 95 Nasal 2.0L Cannula 03/27 1600 90 22 85/41 95 Nasal 2.0L Cannula 03/27 1200 88 22 100/60 03/27 1200 98 Nasal 2.0L Cannula 03/27 1000 96.6 89 22 86/32 96 Room Air Intake & Output 03/28 1600 03/28 0800 03/28 0000 Intake Total 4673 5885 Output Total 250 1450 Balance 4423 4435 Intake, Blood 1800 Product Intake, IV 4673 4085 Intake, Oral 0 0 Number 1 Bowel Movements Output, 250 1450 Gastric Drainage Output, Urine 0 Exam General Appearance: intubated, obtunded, dilatd pupils, mildly reactive. , OG tube with coffee ground emesis Head: swelling Ears, Nose, Throat: icteric sclera Neck: supple Respiratory: breath sounds decreased with scattered rhonchi Cardiovascular: regular rate/rhythm Gastrointestinal: distended and rigid, enlarged liver Extremities: TRACE EDEMA PRESENT Cranial Nerves: pupils dilated, slightly reactive Skin: intact, jaundice IV Drips IV Drips: IV Octreotide IV Pantoprazole IV Normal saline IV Epinephrine, Norepinephrine, Vasopressin Nutrition Nutrition: NPO Current Medications: Current Medications Sig/Imani Start time Last Medication Dose Route Stop Time Status Admin Atropine Sulfate 1 MG ONE ONE 03/28 1530 DC 03/28 IV 03/28 1531 1530 Atropine Sulfate 0 .STK-MED ONE 03/28 1525 DC .ROUTE Calcium Gluconate 1 GM ONCE ONE 03/28 1500 DC 03/28 Sodium Chloride 100 ML IV 03/28 1559 1500 Calcium Gluconate 0 .STK-MED ONE 03/28 1449 DC IV Calcium Gluconate 0 .STK-MED ONE 03/28 0547 DC IV Calcium Gluconate 1 GM ONCE ONE 03/28 0545 DC 03/28 Sodium Chloride 100 ML IV 03/28 0644 0551 Ceftriaxone Sodium 1,000 MG DAILY 03/27 2017 CAN IV Ceftriaxone Sodium 1,000 MG Q24H 03/27 0200 DCD 03/28 IV 0139 Desmopressin Acetate 12 MCG ONE ONE 03/27 1915 DC 03/27 IV 03/27 2100 2039 Folic Acid 1 MG DAILY 03/27 0900 DCD PO Hydrocortisone 100 MG Q8 03/28 0933 DCD 03/28 Sodium Succinate IV 1510 Lorazepam 0 Q1P PRN 03/27 0300 DCD 03/27 IV 1537 Norepinephrine 0 .STK-MED ONE 03/28 1428 DC IV Norepinephrine 8 MG Q6H 03/28 1300 DCD 03/28 Dextrose/Water 500 ML IV 1310 Norepinephrine 8 MG Q24H 03/28 0600 DC 03/28 Dextrose/Water 500 ML IV 03/28 1259 0755 Norepinephrine 0 .STK-MED ONE 03/28 0403 DC IV Norepinephrine 0 .STK-MED ONE 03/27 1945 DC IV Norepinephrine 4 MG Q24H 03/27 1945 DC 03/28 Dextrose/Water 250 ML IV 0404 Octreotide Acetate 500 MCG Q10H 03/28 0900 DCD Dextrose/Water 500 ML IV Octreotide Acetate 500 MCG Q10H 03/27 1815 DC 03/28 Dextrose/Water 500 ML IV 03/28 0859 0543 Pantoprazole Sodium 40 MG Q5H 03/27 1815 DCD 03/28 Sodium Chloride 100 ML IV 1500 Phenylephrine HCl 0 .STK-MED ONE 03/28 1621 DC .ROUTE Phenylephrine HCl 80 MG Q7H 03/28 1530 DCD Dextrose/Water 500 ML IV Phenylephrine HCl 80 MG Q17H 03/28 0600 DC 03/28 Dextrose/Water 500 ML IV 03/28 1529 0821 Phenylephrine HCl 40 MG Q17H 03/27 2015 DC 03/28 Dextrose/Water 250 ML IV 0425 Phenylephrine HCl 40 MG Q24H 03/27 2000 DC Dextrose/Water 250 ML IV Phenylephrine HCl 0 .STK-MED ONE 03/27 1946 DC .ROUTE Sevelamer HCl 1,200 MG WM 03/27 1015 DCD PO Sodium Bicarbonate 150 MEQ Q6H 03/28 0900 DC 03/28 Dextrose/Water 1,000 ML IV 0830 Sodium Bicarbonate 150 MEQ Q6H 03/27 2100 DC 03/28 Dextrose/Water 1,000 ML IV 03/28 0859 0550 Sodium Bicarbonate 75 MEQ Q6H 03/27 1745 DC 03/27 Sodium Chloride 1,000 ML IV 2036 Sodium Chloride 1,000 ML Q4H 03/27 1130 DCD 03/28 IV 1505 Thiamine HCl 100 MG DAILY 03/27 0900 DCD PO Vasopressin 40 UNITS Q16H 03/28 09 DCD 08/11 Sodium Chloride 100 ML IV 0917 Vasopressin 40 UNITS Q16H 03/28 0245 DC 03/27 Sodium Chloride 100 ML IV 03/28 Antibiotics Antibiotic: ceftriaxone CXR Findings: 1. ET tube 5.2 cm above sheree. 2. Right internal jugular line tip at confluence SVC and right atrium. 3. NG tube poorly visualized, likely below diaphragm with manipulation of film windows. 4. Low lung volumes. Bilateral mid zone atelectasis. EKG Findings: atrial fibrillation Impression/Plan Impression/Problem List Impression: Patient is a 49 M with a PMH HTN Anxiety who presents with a chief complaint of muscle cramping x 1 day, but has several other complaints as well. Poor historian. States weakness and bruising of the arms and legs that began about 4 days ago. States general myalgias, malaise, weakness x 4 days. States he vomited repeatedly over the past 2 days as well but denies any blood in the vomitus, states vomitus is brown liquid and is not associated with meals. Does state decreased PO intake/appetite. 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 Initially the patient was admitted to the general medicine floor, next morning the patient was found to be hypotensive with blood pressure 86/32, morning labs were significant for worsening kidney function with creatinine 10.3, BUN 113, corrected CPK [id number], AST 5661, ALT 852. Transferred to ICU yesterday with concerns of acute renal failure, profound transaminitis, hyperkalemia, hypocalcemia. 03/27/18 Patient coded while trying to intubate. Cardiopulmonary resuscitation done for 32 min with ROSC. After ROSC je found to have significant coffee ground emesis on suction and lower GI tract, started on massive trasfusion protocol received a total of 10 units PRBC, 1 unit FFP, 1 unit Cryoprecipitate, 1 unit DDAVP. Started on levophed, epinephrine, vasopressin drips max. In view of GI bleed started on IV pantoprazole @ 8mg/hr and Octreotide drip @50mcg/hr. He underwent dialysis for 3hrs without any removal of volume in view of hypotension. Bedside ECHO did show good contractility of heart. 03/28/18 He was initially maintained his blood pressure on maximal pressor support. Intubated and obtunded with dilated pupils mildly reactive. He was continued on IV protonix and IV octreotide drip. ABG did show pH of 7.3 so discontinued IV bicarbonate drip. After initiatioan of dialysis, he is not able to maintain his blood pressure despite boluses, so stopped dialysis. He remained bradycardic and his H&H continued to drop, abdomen distended likely from bleeding into abdomen. Around 3:30pm he coded - CPR done for 7:15 sec with ROSC. In the next 15min he coded again, while CPR being performed mother decided to with hold it. was pronounced at 16:18pm. Family meeting was held multiple times through out the day, patient status was updated and complexity of the situation was outlined. Problem List: 1. Acute renal failure 2. Elevated LFTs 3. Hypotension 4. Rhabdomyolysis 5. GI bleed 6. Coagulopathy 7. Anemia Benjamin Romero MD 03/28/18 0853: Impression/Plan Impression/Problem List Problem List: 1. Rhabdomyolysis 2. Elevated LFTs 3. Hypotension 4. Acute renal failure Pain Ratin Tomorrow's Labs & Rationales: Plan DVT/Prophylaxis: mechanical (BLEEDING) Attending MD Review Statement Attending Sign Off Attending Cosign Statement: I have: examined this patient, reviewed al EMR data, personally reviewd images, discussd w/resident/PA/RADIOLOGY PRACTITIONER ASSISTANT, discussed mgmt plan w/sherman, discussed mgmt plan w/CM, discussed mgmt plan w/pt, agreed w/resident/PA/RADIOLOGY PRACTITIONER ASSISTANT, amended to note. Other Findings: IBenjamin M.D. have examined this patient, reviewed available EMR data, personally reviewed images, discussed with resident/PA/RADIOLOGY PRACTITIONER ASSISTANT, discussed management plan with housestaff and nursing staff, discussed managment plan all of healthcare providers, discussed management plan with patient and/or family, agreed with resident/PA/RADIOLOGY PRACTITIONER ASSISTANT. The past history and parts of the chart have been autopopulated. Impression 47 year old man * Acute renal failure - broad differential - pre-renal/rhabdomyolysis/ingestion * asystolic cardiac arrest about 32 minutes * circulatory shock * metabolic acidosis * hyperkalemia, hypocalcemia * elevated liver enzymes * substance dependence/etoh/benzodiazepine use reportedly * elevated TG/elevated Lipase Plan Respiratory -intubated -mechanically ventilated -monitor abgs, cxrs -bicarbonate drip will discontinue if okay with nephrology ID -ceftriaxone for concern of varices and gi bleed -f/u cultures - sputum CVS -monitor hemodynamics -levophed -vasopressin -neosynephrine -bedside echo without effusion 10 and good contractility -elevated troponins likely secondary to CPR - will get ECHO and cardiology consultation -titrate to MAP >65 -no plan for hypothermia given significant coagulopathy and ongoing bleeding as hypothermia can worsen coagulation cascade -will add hydrocortisone 100mg iv q8h for the intention to increase blood pressure in the event the patient is adrenally supressed, will check cortisol Heme -s/p rapid transfusion -monitor hgb q4-6h unless new bleeding -GI appreciated -no plan for endoscopy given significant instability, elevated troponins, desaturation and no fresh bleeding -s/p DDAVP -DIC workup -octreotide, ppi -ceftriaxone given UGIB and concern for varices -Transfused -10 prbcs -2 FFP -1 platelets -1 cryoprecipitate -1 DDAVP Metabolic -HD, -nephrology appreciated -will stop bicarbonate for now, will ask nephrology if still needed -monitor electrolytes -hyperkalemia definitively addressed by dialysis Alimentary -NPO Neuro -s/p arrest -dilated pupils -when more stable will check ct head to rule out any intracranial bleed/ pathology/anoxia, unstable to travel at this time DVT prophylaxis - ALPS Patient is critically ill, he requires ICU stay his prognosis is grim Family at bedside - answered all questions. Discussed care with all consultants. TTS 80 min
--- NOTE | 2018-03-28 09:36 | PN- Gastroenterology ---
Assessment/Plan GI Assessment/Recommendations: 47-year-old male, poor historian, HTN, HLD, non-DM,obese, anxiety, fatty liver, who presented to the [place] [facility] 03/26/18, arriving at 2:46 p.m., BIBA from home, complaining of muscle cramps in his lower extremities x 1 day [employer], & diffuse bruising x 4 days [employer], with generalized malaise, weakness, and nausea & vomiting , contents bilious, without blood. There was no GERD, odynophagia, dysphagia, or early satiey. He denied any melena, but noted brown stool with occasional streaks of bright red blood after defecation, which he attributed to hemorrhoids. There was no spontaneous lower GI bleeding. He said he may have had fevers & chills, but no temperature spike was appreciated in the ER. He had no symptoms of UTI or URI, but noted slight decreased urine output. 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 Upon presentation to the ER, BP 96/52, P 90, R 16, T 98.3, O2 sat RA 98%. BP reponded rapidly to IVF. The patient denied taking any aspirin, but did take Motrin for a few days [employer]. He denied any significant Tylenol use, recent outpatient antibiotics, or new medications. (He reportedly was on outpt Amlodipine, Atorvastatin, ARON, Remeron, Diovan, & Rozerem). He repeatedly denied any alcohol use, although according to the chart, *the patient's family stated that the patient did drink. He had vague periumbilical discomfort, without radiation. There was scant diarrhea, without any constipation, obstipation, or tenesmus. He was on a statin. He denied any prior history of hepatitis, but did have multiple tattoos. He denied any blood transfusions, IVDA, risk factors for HIV, jaundice, dark urine, light stools, or pruritus. He denied any FHx of GI CVA, GI disease, or inherited liver disease. His gallbladder was intact. He denied any trauma, falls, or prolonged immobilization. He denied any IV contrast [employer]. He denied any weight loss, but rather weight gain. He denied any peripheral edema. He was uncertain if he had increased abdominal girth. He was more lethargic than usual, but was A & O x 3. There was no CP or SOB. *He was empirically rxd IV Ceftriaxone, as per the medical team. He was seen once as an outpt by Dr. Tan So for fatty liver on 10/21/17 (* see labs below), but was not compliant with a follow-up visit. He had never had a Fibroscan or liver biopsy. He had never had an EGD or colonoscopy. He denied any prior abdominal surgery. *The patient had multiple metabolic derangements on admission, including SHERIN, with GFR 6, anemia, thrombocytopenia, mild coagulopathy, positive lactate with mild acidosis, mildly elevated lipase, & acute on chronic elevated mixed LFTs ( predominantly transaminitis), & CK > 32K. *Urine toxicology subsequently showed positive benzodiazepine and positive methadone (*although the patient denied any illicit drugs). Old 09/27/04: urine tox previously showed + benzo/OP-MS/ cocaine & cannabis. 01/30/17: WBC 7.9, H/H 13.6/39.4, MCV 88.4, RDW 13.9, PLT 239, BUN/Cr 23/1.0, GFR > 60, albumin 4.3, globulin 3.7, T bili 0.8, alk phos 141, AST 63, ALT 76. 09/02/17: RUQ sono (per PMD)-fatty liver without focal hepatic defect, nl GB, CBD 6 mm. 10/21/17: *Labs per Dr. Tan So-albumin 3.8, globulin 4.1, T bili 1.3, D bili 0.7, alk phos 420, AST 335, ALT 184, Fe 170, TIBC 336, Fe sat 50.6, * ferritin 787, Hep Bs Ag- neg, Hep C Ab- neg, WBC 7.6, H/H 13.9/40.7, MCV 95.5, RDW 14.3, PLT 157, PT 12.1, INR 1.11, RODRÍGUEZ- neg 1:40, anti SLA Ab- neg, borderline anti-smooth muscle Ab 20, AMA < 20, nl ceruloplasmin 25. 03/26/18: *Admission labs-WBC 11.9 (72S/26L/1E), H/H 10.0/28.9, MCV 93, RDW 16.9 , PLT 116, PT 16, INR 1.46, PTT 39, glucose 88, BUN/Cr 103/9.0, GFR 6, Na 130, K 4.7, HCO3 19, AG 18, serum osm 318, + lactate 2.2-> 1.7, lipase 793, Ca 5.8, PO4 8.6, alb 2.7, glob 3.4, TBil 4.3, DBil 3.7, alk phos 376, AST 6928, ALT 1128, CK > 32K, Tylenol < 10, EtOH < 10. 03/26/18: *Hep A Ab, Hep Bs Ag, Hep b core Ab, Hep C Ab- all negative. 03/27/18: *Tick panel- pending. 03/27/18: *HIV- neg, *TG 518. 03/27/18: U/A- hazy, [place], 1.105, 6.0, 1-3 RBC, 25-50 WBC, 15-25 granular casts , many bacteria, rare epith, mod amorph, large Hgb, + icto, 100+ prot, 0.2 urobilin, neg nitrite, neg esterase. 03/27/18:*Utox- positive benzodiazepine 431, positive methadone > 735. 03/27/18: *Ronnie 74, FENa 5.6, U osm 313. 03/27/18: WBC 11.4 (80S/3B/13L/3M/1E), H/H 7.5/21.7, MCV 94.1, RDW 17.4, PLT 109 03/27/18: BUN/Cr 113/10.3, GFR 5, Na 130, K 6.3, HCO3 14, AG 20, Ca 4.7, PO4 10.2, alb 2.2, glob 2.8, TBil 4.1, DBil 3.6, alk phos 278, AST 5661, ALT 852, * CK- 165,360 (*on outpt statin). 03/27/18: *stool C&S, C. diff- neg. 03/26/18: EKG- NSR @ 90, nl axis, borderline prolonged QT interval, no acute ischemia. 03/26/18: CT ABD & PELVIS W/O IV CONTRAST (*SHERIN)- Hepatomegaly with hepatic steatosis. No focal lesion seen. No dilated ducts. Normal GB. Normal pancreas & spleen (within the limits of a non-IV contrast study). No ascites. Normal kidneys, without hydronephrosis. Nonspecific mild mural thickening involving distal ascending colon and right transverse colon. Nonspecific colitis likely inflammatory or infectious etiology. No proximal bowel obstruction. AP not seen (intact per pt). Scattered sigmoid diverticulosis without diverticulitis. DJD. *As of 03/27/18, the patient's LFTs were multifactorial, keeping in mind past history of fatty liver. Previous 10/21/17: extensive serologies per Dr. Tan So were negative (i.e.- viral hep, ceruloplasmin, RODRÍGUEZ, AMA, etc.), aside from elevated ferritin 787, nl Fe sat 50.6%, & borderline anti-smooth muscle Ab 20. He was noncompliant with outpatient GI follow-up. There was a questionable history of EtOH. * Additionally, previous Utox showed polysubstance abuse, including 03/27/18: + benzo/+methadone. Certainly, there could be a toxic metabolic component. The possibility of rhabdomyolysis exists, with markedly elevated transaminases and markedly elevated CK. The patient was borderline hypotensive. His renal function and electrolytes were worsening. His anemia was probably mostly from SHERIN. The mild colitis on CT was a soft finding. He did have brown OB positive stool, but I did not believe that he was having an active GI bleed, and that his other numerous issues took precedence. The mildly elevated lipase was noted, but the patient had a relatively benign abdominal exam, aside from hepatomegaly, without any peritoneal signs. The pancreas appeared normal, within the limits of a non-IV contrast CT. *The patient could be cirrhotic (? progression of steatohepatitis), with reversal of albumin:globulin ratio, thrombocytopenia, mildly elevated INR, spiders on the anterior chest wall, & mild gynecomastia. His 03/27/18: elevated Ronnie 74 & elevated FENa 5.6, seem most consistent with ATN. He was on outpt NSAIDS. Doubt HRS, which should give low Ronnie & low FENa. The patient was too unstable to remain on the floor, & midway through my GI consult, he was becoming hypotensive. *I advised a transfer to the ICU for closer monitoring, management of electrolytes & acidosis, & renal consultation for dialysis & probable transfusion. He may ultimately need liver biopsy (*and/ or muscle bx-> ? statin, ? bee sting), after stabilization. Event Note: I returned to the ICU approximately 6 p.m. on 03/27/18, to see the patient again , at the request of Dr. De Los Santos. The patient coded late this afternoon & had CPR for 34 minutes for asystole. He was intubated & found to have coffee grounds from above & melena from below (previously brown stool, OB+), in the setting of innumerable profound metabolic abnormalities. The ICU team was attempting to stabilize him for dialysis. His creatinine from earlier this afternoon came back at 28!! The patient was currently on max dose Levophed, with additional pressors to be added. His pH came back at 6.93, with a profound metabolic acidosis. He was oozing from various sites, and certainly could be in DIC. Additionally, most recent BUN/Cr 114/11.1, GFR 5, HCO3 9, lactate 10.5, Ca 4.2, K 7.3, etc.!! WBC 15.3, H/H5 0.5/16.5, PLT 94. The patient's mother was on vacation and was contacted by the medical housestaff, regarding the above.* Please note, the patient had illicit drugs on board, on his Utox. I had a long discussion with Dr. De Los Santos and Dr. Romero of the ICU team, Dr. Mckenzie of renal, & Dr. Preciado, of anesthesia. *Clearly, the patient was currently not in any position to safely undergo endoscopy, & they concurred. I am not certain the patient will survive the evening, based on his numerous metabolic derangements. I advised continued ICU stabilization, continued HCO3, pressors, vent support, & hopeful hemodialysis, to correct his electrolytes. He should continue to be transfused PRBC as needed. I advised checking a DIC panel & giving FFP as needed. I also advised a Protonix bolus of 80 mg IV, followed by an 8 mg/hr IV Protonix drip. I also advised empirically starting Octreotide 50 mcg IV bolus, followed by a 50 mcg/hr IV Octreotide drip, in case the above may be variceal in nature, & to continue empiric Ceftriaxone. If the patient survives his current situation, he can be reassessed for EGD down the road. The above was discussed with the ICU medical house staff, as well. 03/27/18: ULTRASOUND AND FLUOROSCOPICALLY GUIDED RIGHT INTERNAL JUGULAR VEIN TEMPORARY DIALYSIS CATHETER PLACEMENT- Successful placement of temporary hemodialysis catheter via the right internal jugular vein, per Dr. Meredith. 03/27/18: XR PORTABLE CHEST- Limited evaluation. Endotracheal tube terminates 3.8 cm above the sheree. Distal end of the enteric tube is not clearly visualized, likely in the distal esophagus. 03/28/18: XRY-PORTABLE CHEST XRAY- 1. ET tube 5.2 cm above sheree. 2. Right internal jugular line tip at confluence SVC and right atrium. 3. NG tube poorly visualized, likely below diaphragm with manipulation of film windows. 4. Low lung volumes. Bilateral mid zone atelectasis. 03/28/18: EKG- NSR@ 80, nl axis, 1st degree AVB with HI .216, voltage throughout , borderline prolonged QT interval. 03/27/18: stool C&S- neg, C. diff toxin A&B- neg, Shiga toxin- pending. *As of 03/28/18, the events of the evening of 03/27/18 were reviewed in detail & discussed with Dr. Romero, of the ICU. He had a RIJ line placed by IR for emergent HD on 03/27/18. The patient then had an emergent triple-lumen catheter placed by cardiology in the right femoral vein last p.m. He had received insulin & Kayexalate, then miraculously survived 34 minutes of CPR for asystole, followed by hemodialysis. Unfortunately, it looked like he blew his pupils B/L , which persisted long after atropine was no longer on board. He was unresponsive to verbal or noxious stimuli, but was still overriding the ventilator. He had diffuse bleeding from various sites, not just GI, and I would not be surprised if he had developed an intracranial bleed, and/or anoxic damage. His BP was currently 70 systolic, on maximum dose triple pressors ( Levophed Vasopressin & Kenroy-Synephrine), and he was too unstable for repeat hemodialysis. A cursory bedside echocardiogram performed by Dr. Romero on 03/27 did not show any gross pericardial effusion, with normal contractility. There was no bright red blood per OG tube, or per rectum, at present. There was scant coffee grounds from the OG tube. At present, there was no melena from below. The patient's abdomen was rigid, and I would not be surprised if he had bled extraluminally, into his abdominal cavity. His prognosis was extremely poor. The ICU team had spoken to some of his next of kin, including his mother, who was out of town in [place]. *I spoke at length to the patient's cousin, Vivi, in the ICU, who was aware of the patient's extremely poor prognosis. She was aware that he cannot undergo repeat hemodialysis because of his hypotension, and that he remained too unstable for upper endoscopy, which I felt at this point was not warranted by the risk:benefit ratio. Dr. Romero concurred. He remained intubated on Ceftriaxone for concern of possible varices and/or sepsis. He was somewhat hypothermic. He remained on empiric IV Protonix and IV Octreotide drips. He had received 10u PRBC, 2u FFP, 1 platelets, 1 cryoprecipitate, 1 DDAVP. Stress dose IV Hydrocortisone 100 mg Q8h was empirically added. He remained on IV bicarb drip. Fibrinogen was low, consistent with possible DIC (or liver disease), although FDP were never sent. He remained coagulopathic, with PT 23.6, INR 2.15. His metabolic acidosis persisted, but was improved compared to yesterday. His Hgb (9.1) was at an acceptable level, albeit post multiple blood transfusions, with WBC 10.6, PLT 67. His SHERIN persisted (BUN/cr 61/6.8, GFR 9), although slightly better, after 03/27/18: hemodialysis. He remained with numerous electrolyte abnormalities, although his hyperkalemia (K- 5.2), was somewhat improved. His lactate had come down from 17.1 to 11.3. He remains malnourished with albumin 1.8. *NH3- 161. His most recent troponin was 1.79. His multifactorial abnormal LFTs persisted, as did his CK. *SUGGEST- Patient too unstable for hemodialysis or for EGD. Although he required numerous blood products for diffuse oozing, he was not actively GI bleeding at the moment. This does not exclude the possibility of a variceal bleed, but the patient was on max dose triple pressors (Levophed Vasopressin & Kenroy-Synephrine). Prognosis grave. The patient's cousin, Vivi, was made aware of this in the ICU, as per our discussion, on 03/28/18. Advise supportive care, with triple pressors, blood products as needed, broad-spectrum antibiotics (currently on Ceftriaxone), follow-up cultures, stress dose steroids, IV bicarbonate, vent support, IV Protonix drip at 8 mg/hr, IV Octreotide drip at 50 mcg/hr. Follow-up LFTs, lytes, troponins, NH3, etc. Consider checking FDP. Follow-up with nephrology, cardiology, ICU, etc. Consider CT head to rule out intracranial bleed/anoxia, although patient too unstable for this at the moment. Consideration for CT abdomen to rule out extraluminal bleed into abdominal cavity. DVT prophylaxis with ALPS. Continue to hold ARB & statins. Avoid hepatotoxins.*At this point, other suggestions at the time of the initial 03/27/18: GI consultation are probably moot (i.e.-Doppler of HV & PV, genetic testing for HHC with elevated ferritin, A1AT, rheumatology input regarding CK, tic panel, etc.). As the patient's long-term prognosis is extremely poor, probably no window period for ultimate liver biopsy and/or muscle biopsy. As per my discussion with Dr. Romero, please call GI if any additional input is needed, but unfortunately, the patient appears premorbid. The above was discussed with the medical ICU housestaff. 1/2 hour of ICU care was spent on the patient. Problem List: 1. Rhabdomyolysis 2. Acute renal failure 3. Elevated LFTs 4. Fatty liver 5. Hypotension 6. Anemia 7. Thrombocytopenia 8. Coagulopathy 9. Malnutrition 10. Elevated lipase 11. Colitis 12. Polysubstance abuse 13. GI bleed Subjective Subjective: 03/27/18: ULTRASOUND AND FLUOROSCOPICALLY GUIDED RIGHT INTERNAL JUGULAR VEIN TEMPORARY DIALYSIS CATHETER PLACEMENT- Successful placement of temporary hemodialysis catheter via the right internal jugular vein, per Dr. Meredith. 03/27/18: XR PORTABLE CHEST- Limited evaluation. Endotracheal tube terminates 3.8 cm above the sheree. Distal end of the enteric tube is not clearly visualized, likely in the distal esophagus. 03/28/18: XRY-PORTABLE CHEST XRAY- 1. ET tube 5.2 cm above sheree. 2. Right internal jugular line tip at confluence SVC and right atrium. 3. NG tube poorly visualized, likely below diaphragm with manipulation of film windows. 4. Low lung volumes. Bilateral mid zone atelectasis. 03/28/18: EKG- NSR@ 80, nl axis, 1st degree AVB with HI .216, voltage throughout , borderline prolonged QT interval. 03/27/18: stool C&S- neg, C. diff toxin A&B- neg, Shiga toxin- pending. *As of 03/28/18, the events of the evening of 03/27/18 were reviewed in detail & discussed with Dr. Romero, of the ICU. He had a RIJ line placed by IR for emergent HD on 03/27/18. The patient then had an emergent triple-lumen catheter placed by cardiology in the right femoral vein last p.m. He had received insulin & Kayexalate, then miraculously survived 34 minutes of CPR for asystole, followed by hemodialysis. *Unfortunately, it looks like he blew his pupils B/L, which persisted long after atropine was no longer on board. He was unresponsive to verbal or noxious stimuli, but was still overriding the ventilator. He had diffuse bleeding from various sites, not just GI, and I would not be surprised if he had developed an intracranial bleed, and/or anoxic damage. His BP was currently 70 systolic, on maximum dose triple pressors (Levophed Vasopressin & Kenroy-Synephrine), and he was too unstable for repeat hemodialysis. A cursory bedside echocardiogram performed by Dr. Romero on 03/27/18 did not show any gross pericardial effusion, with normal contractility. There was no bright red blood per OG tube, or per rectum, at present. There was scant coffee grounds from the OG tube. At present, there was no melena from below. The patient's abdomen was rigid, and I would not be surprised if he had bled extraluminally, into his abdominal cavity. His prognosis was extremely poor. The ICU team had spoken to some of his next of kin, including his mother, who was out of town in [place]. *I spoke at length to the patient's cousin, Vivi, in the ICU, who was aware of the patient's extremely poor prognosis. She was aware that he cannot undergo repeat hemodialysis because of his hypotension, and that he remained too unstable for upper endoscopy, which I felt at this point was not warranted by the risk:benefit ratio. Dr. Romero concurred. He remained intubated on Ceftriaxone for concern of possible varices and/or sepsis. He was somewhat hypothermic. He remained on empiric IV Protonix and IV Octreotide drips. He had received 10u PRBC, 2u FFP, 1 platelets, 1 cryoprecipitate, 1 DDAVP. Stress dose IV Hydrocortisone 100 mg Q8h was empirically added. He remained on IV bicarb drip. Fibrinogen was low, consistent with possible DIC (or liver disease), although FDP were never sent. He remained coagulopathic, with PT 23.6, INR 2.15. His metabolic acidosis persisted, but was improved compared to yesterday. His Hgb (9.1) was at an acceptable level, albeit post multiple blood transfusions, with WBC 10.6, PLT 67. His SHERIN persisted (BUN/cr 61/6.8, GFR 9), although slightly better, after 03/27/18: hemodialysis. He remained with numerous electrolyte abnormalities, although his hyperkalemia (K- 5.2), was somewhat improved. His lactate had come down from 17.1 to 11.3. He remains malnourished with albumin 1.8. *NH3- 161. His most recent troponin was 1.79. His multifactorial abnormal LFTs persisted, as did his CK. Review of Systems: ROS unobtainable- pt obtunded & unresponsive to verbal and noxious stimuli. Objective Vital Signs and I&Os Vital Signs Date Time Temp Pulse Resp B/P B/P Pulse O2 O2 Flow FiO2 Mean Ox Delivery Rate 03/28 0755 100 / 0755 85 32 138/60 / 0614 100 / 0600 96.6 88 28 150/67 08/ 0404 81 115/82 08/ 0400 96.6 80 28 115/82 / 0400 100 Ventilator 100% / 0306 100 08/ 0200 96.7 83 28 120/62 / 0044 100 08/ 0031 86 126/66 08/11 0000 96.7 87 29 105/74 03/28 0000 100 Ventilator 100% 03/28 0000 96.7 87 29 98/00 100 Ventilator 100% 03/27 2256 100 03/27 2200 96.0 102 28 82/44 03/27 2020 68/00 03/27 2000 96.0 66 32 134/57 03/27 2000 92 Ventilator 100% 03/27 1900 100 / 1745 85 80/50 03/27 1745 85 80/0 03/27 1600 90 22 85/41 03/27 1600 94 Nasal 2.0L Cannula 03/27 1600 95 Nasal 2.0L Cannula 03/27 1600 90 22 85/41 95 Nasal 2.0L Cannula 03/27 1200 88 22 100/60 03/27 1200 98 Nasal 2.0L Cannula Intake & Output 03/28 0400 03/27 1600 03/27 0400 03/26 1600 03/26 0400 Intake Total 4673 5885 3750 Output Total 250 1450 75 Balance 4423 4435 3675 Intake, Blood 1800 Product Intake, IV 4673 4085 3750 Intake, Oral 0 0 0 Number 1 Bowel Movements Output, 250 1450 Gastric Drainage Output, Urine 0 75 Patient 278 lb 272 lb Weight Weight Bed scale Measurement Method Physical Exam: Well-developed, malnourished, obese male, intubated on vent, OG tube with scant coffee grounds, unresponsive to verbal or noxious stimuli, although overriding vent. Sclera icteric. Conjunctiva less pale. There is no adenopathy, thyromegaly, or JVD. No peripheral stigmata of inflammatory bowel disease on exam. Previously, +spiders on the anterior chest wall (more difficult to assess now, post hypotension). Mild gynecomastia B/L (? obesity vs. liver), without masses or D/C. No CVA tenderness. No spine tenderness. Lungs: Few scattered rhonchi, with slight decreased BS at the bases B/L. No wheezing or rales. Heart exam: regular rate rhythm, distant S1 and S2, without any murmur. Abdominal exam: Hypoactive bowel sounds, distended, obese belly, slightly rigid, without any definite abdominal tenderness, guarding or rebound. No definite mass. No splenomegaly. Enlarged liver, approximately 20 cm by percussion. Negative Fonseca sign, but patient is obtunded. No definite fluid shift. No pulsatile mass. No epigastric bruit. (Digital rectal exam 03/27/18 by myself: brown stool, OB positive, without mass. ? palpable hemorrhoids w/o BRB. Smooth prostate without nodule. Normal sphincter tone). Extremities without cyanosis or clubbing. Trace LE edema B/L. Multiple bruises & ecchymoses on extremities. No gross cellulitis seen. No palpable cords. No palmar erythema. No Dupuytren's contractures. Multiple tattoos. Distal pulses < 1+ bilaterally. DTRs 2+ bilaterally. Right handed. Obtunded. Blown pupils B/L. Not moving extremities. No tremor. No asterixis. Current Medications: Current Medications Sig/Imani Start time Last Medication Dose Route Stop Time Status Admin Amiodarone HCl/ 150 MG ONCE ONE 03/27 171 DC 03/27 Dextrose IV 03/27 1724 1745 N/A 1 UNIT Amiodarone HCl/ 150 MG ONCE ONE 03/27 171 DC 03/27 Dextrose IV 03/27 1724 1745 N/A 1 UNIT Amlodipine Besylate 10 MG DAILY 03/27 09 DC PO Calcium Gluconate 0 .STK-MED ONE 03/28 0547 DC IV Calcium Gluconate 1 GM ONCE ONE 03/28 0545 DC 03/28 Sodium Chloride 100 ML IV 03/28 0644 0551 Ceftriaxone Sodium 1,000 MG DAILY 03/27 2017 CAN IV Ceftriaxone Sodium 1,000 MG Q24H 03/27 0200 AC 03/28 IV 0139 Desmopressin Acetate 12 MCG ONE ONE 03/27 1915 DC 03/27 IV 03/27 2100 2039 Desmopressin Acetate 20 MCG ONE ONE 03/27 1745 DC 03/27 IV 03/27 1746 2005 Dextrose 25 GM ONCE ONE 03/27 1745 DC 03/27 IV 03/27 1746 1745 Dextrose 25 GM ONCE ONE 03/27 1630 DC 03/27 IV 03/27 1631 1745 Dextrose 25 GM ONCE ONE 03/27 1415 CAN IV 03/27 1416 Dextrose 25 GM ONCE ONE 03/27 1045 DC 03/27 IV 03/27 1046 1246 Folic Acid 1 MG DAILY 03/27 09 AC PO Heparin Sodium 0 .STK-MED ONE 03/27 1306 DC (Porcine) IV Hydrocortisone 100 MG Q8 03/28 0933 AC 03/28 Sodium Succinate IV 1017 Insulin Human Regular 10 UNITS ONCE ONE 03/27 1745 DC 03/27 CT 03/27 1746 1745 Insulin Human Regular 10 UNITS ONCE ONE 03/27 1630 DC 03/27 SC 03/27 1631 1745 Insulin Human Regular 10 UNITS ONCE ONE 03/27 1415 CAN SC 03/27 1416 Insulin Human Regular 10 UNITS ONCE ONE 03/27 1045 DC 03/27 CT 03/27 1046 1246 Lidocaine 0 .STK-MED ONE 03/27 1307 DC .ROUTE Lorazepam 0 Q1P PRN 03/27 0300 03/27 IV 1537 Norepinephrine 8 MG Q6H 03/28 1300 AC Dextrose/Water 500 ML IV Norepinephrine 8 MG Q24H 03/28 0600 AC 03/28 Dextrose/Water 500 ML IV 03/28 1259 0755 Norepinephrine 0 .STK-MED ONE 03/28 0403 DC IV Norepinephrine 0 .STK-MED ONE 03/27 194 DC IV Norepinephrine 4 MG Q24H 03/27 1945 DC 03/28 Dextrose/Water 250 ML IV 0404 Norepinephrine 0 .STK-MED ONE 03/27 1919 DC IV Octreotide Acetate 500 MCG Q10H 03/28 09 AC Dextrose/Water 500 ML IV Octreotide Acetate 50 MCG ONCE ONE 03/27 1815 DC 03/27 IV 03/27 1816 2021 Octreotide Acetate 500 MCG Q10H 03/27 1815 DC 03/28 Dextrose/Water 500 ML IV 03/28 0859 0543 Oxycodone HCl 5 MG Q6 PRN 03/26 2300 DC 03/26 PO 2350 Pantoprazole Sodium 40 MG Q5H 03/27 1815 AC 03/28 Sodium Chloride 100 ML IV 0550 Pantoprazole Sodium 40 MG DAILY 03/27 09 DC 03/27 IV 0848 Phenylephrine HCl 80 MG Q7H 03/28 1530 AC Dextrose/Water 500 ML IV Phenylephrine HCl 80 MG Q17H 03/28 0600 AC 03/28 Dextrose/Water 500 ML IV 03/28 1529 0821 Phenylephrine HCl 40 MG Q17H 03/27 2015 DC 03/28 Dextrose/Water 250 ML IV 0425 Phenylephrine HCl 40 MG Q24H 03/27 2000 DC Dextrose/Water 250 ML IV Phenylephrine HCl 0 .STK-MED ONE 03/27 194 DC .ROUTE Phenylephrine HCl 0 .STK-MED ONE 03/27 1919 DC .ROUTE Phenylephrine HCl 0 .STK-MED ONE 03/27 1852 DC .ROUTE Phytonadione 10 MG ONCE ONE 03/27 1800 DC 03/27 CT 03/27 1801 2005 Sevelamer HCl 1,200 MG WM 03/27 1015 AC PO Sodium Bicarbonate 150 MEQ Q6H 03/28 0900 AC 03/28 Dextrose/Water 1,000 ML IV 0830 Sodium Bicarbonate 150 MEQ Q6H 03/27 2100 DC 03/28 Dextrose/Water 1,000 ML IV 03/28 0859 0550 Sodium Bicarbonate 75 MEQ Q6H 03/27 1745 DC 03/27 Sodium Chloride 1,000 ML IV 2036 Sodium Bicarbonate 100 MEQ Q10H 03/27 1545 CAN Sodium Chloride 1,000 ML IV Sodium Bicarbonate 75 MEQ Q6H 03/27 0945 DC Sodium Chloride 1,000 ML IV 03/27 1544 Sodium Chloride 1,000 ML BOLUS ONE 03/27 1645 DC 03/27 IV 03/27 1744 1645 Sodium Chloride 1,000 ML BOLUS ONE 03/27 1645 DC 03/27 IV 03/27 1744 1645 Sodium Chloride 1,000 ML Q4H 03/27 1130 AC 03/28 IV 0542 Sodium Chloride 500 ML BOLUS ONE 03/27 1045 DC 03/27 IV 03/27 1144 1045 Sodium Chloride 1,000 ML Q6H 03/27 1045 DC IV Sodium Polystyrene 60 ML ONCE ONE 03/27 1745 DC Sulfonate HI 03/27 1746 Sodium Polystyrene 60 ML ONCE ONE 03/27 1745 DC Sulfonate HI 03/27 1746 Sodium Polystyrene 120 ML ONCE ONE 03/27 1500 DC Sulfonate PO 03/27 1501 Thiamine HCl 100 MG DAILY 03/27 09 AC PO Vasopressin 40 UNITS Q16H 03/28 0900 AC Sodium Chloride 100 ML IV Vasopressin 40 UNITS Q16H 03/28 0245 DC 03/27 Sodium Chloride 100 ML IV 03/28 0859 1999 Results Pertinent Lab Results: Laboratory Tests 03/28 03/28 0705 0600 Blood Gas pH (7.35 - 7.45 PH) 7.32 L pCO2 (35 - 45 TORR) 26 L pO2 (80 - 100 TORR) 128 H HCO3 (21 - 28 MEQ/L) 13 L ABG O2 Sat (Measured) (>96.0 %) 98.0 P-50 (Temp Corrected) N Carboxyhemoglobin (1.5 - 5.0 %) 0.3 L O2 Concentration % 100 Respiration Rate (BPM) 28 O2 Delivery Method VENT Vent Mode A/C Expiratory Pressure (CMH2O/P) 5 Tidal Volume (CC) 600 Hematology CBC w Diff MAN DIFF ORDERED WBC (4.8 - 10.8 /CUMM) 10.6 RBC (4.70 - 6.10 /CUMM) 2.95 L Hgb (14.0 - 18.0 G/DL) 9.1 L Hct (42 - 52 %) 26.5 L MCV (80.0 - 94.0 FL) 89.8 MCH (27.0 - 31.0 PG) 30.9 MCHC (33.0 - 37.0 G/DL) 34.4 RDW (11.5 - 14.5 %) 17.4 H Plt Count (130 - 400 /CUMM) 67 L MPV (7.4 - 10.4 FL) 9.5 Gran % (42.2 - 75.2 %) 73.8 Lymphocytes % (20.5 - 51.1 %) 22.2 Monocytes % (1.7 - 9.3 %) 3.8 Eosinophils % (0 - 5 %) 0.1 Basophils % (0.0 - 2.0 %) 0.1 Absolute Granulocytes (1.4 - 6.5 /CUMM) 7.8 H Segmented Neutrophils (42.2 - 75.2 %) 54 Band Neutrophils (0.0 - 5.0 %) 9 H Absolute Lymphocytes (1.2 - 3.4 /CUMM) 2.3 Lymphocytes (20.5 - 51.1 %) 31 Monocytes (1.7 - 9.3 %) 6 Absolute Monocytes (0.10 - 0.60 /CUMM) 0.4 Absolute Eosinophils (0.0 - 0.7 /CUMM) 0 Absolute Basophils (0.0 - 0.2 /CUMM) 0 Nucleated RBCs (0.0 - 0.0 /100WBC) 3 H Hypochromic-Microcytic 1+ Poikilocytosis 1+ Anisocytosis 2+ Miscellaneous Phlebotomy Draw Site RIGHT RADIAL 03/28 03/28 03/28 0540 0350 0020 Chemistry Sodium (137 - 145 mmol/L) 128 L Potassium (3.5 - 5.1 mmol/L) 5.2 H Chloride (98 - 107 mmol/L) 96 L Carbon Dioxide (22 - 30 mmol/L) 13 L Anion Gap (5 - 16) 19 H BUN (9 - 20 mg/dL) 61 H Creatinine (0.7 - 1.2 mg/dL) 6.8 *H Estimated GFR (>60 ml/min) 9 L Glucose (65 - 99 mg/dL) 244 H Calcium (8.4 - 10.2 mg/dL) 4.8 *L Phosphorus (2.5 - 4.5 mg/dL) 9.8 H Magnesium (1.6 - 2.3 mg/dL) 2.1 Total Bilirubin (0.2 - 1.3 mg/dL) 5.3 H AST (17 - 59 U/L) 5005 H ALT (21 - 72 U/L) 883 H Troponin I (<0.11 ng/ml) 1.79 *H 0.79 *H Albumin (3.5 - 5.0 g/dL) 1.8 L Cortisol AM Sample (4.46 - 22.7 ug/dL) 40.0 H Coagulation PT (9.4 - 12.5 SEC) 23.6 H INR (0.90 - 1.17) 2.15 H Hematology CBC w Diff MAN DIFF ORDERED WBC (4.8 - 10.8 /CUMM) 10.9 H RBC (4.70 - 6.10 /CUMM) 3.25 L Hgb (14.0 - 18.0 G/DL) 10.0 L Hct (42 - 52 %) 29.1 L MCV (80.0 - 94.0 FL) 89.5 MCH (27.0 - 31.0 PG) 30.7 MCHC (33.0 - 37.0 G/DL) 34.3 RDW (11.5 - 14.5 %) 16.8 H Plt Count (130 - 400 /CUMM) 77 L MPV (7.4 - 10.4 FL) 9.8 Gran % (42.2 - 75.2 %) 76.9 H Lymphocytes % (20.5 - 51.1 %) 19.0 L Monocytes % (1.7 - 9.3 %) 4.0 Eosinophils % (0 - 5 %) 0 Basophils % (0.0 - 2.0 %) 0.1 Absolute Granulocytes (1.4 - 6.5 /CUMM) 8.4 H Segmented Neutrophils (42.2 - 75.2 %) 65 Band Neutrophils (0.0 - 5.0 %) 12 H Absolute Lymphocytes (1.2 - 3.4 /CUMM) 2.1 Lymphocytes (20.5 - 51.1 %) 18 L Monocytes (1.7 - 9.3 %) 1 L Absolute Monocytes (0.10 - 0.60 /CUMM) 0.4 Absolute Eosinophils (0.0 - 0.7 /CUMM) 0 Absolute Basophils (0.0 - 0.2 /CUMM) 0 Metamyelocytes (0.0 - 1.0 %) 4 H Nucleated RBCs (0.0 - 0.0 /100WBC) 3 H Platelet Estimate (ADEQUATE) DECREASED Polychromasia + 03/28 03/27 0020 2230 Chemistry Lactic Acid (0.7 - 2.1 mmol/L) 11.3 H Coagulation PT (9.4 - 12.5 SEC) 16.5 H INR (0.90 - 1.17) 1.51 H APTT (25 - 37 SEC) 66 H Fibrinogen Activity (200 - 393 MG/DL) 155 L Hematology CBC w Diff NO MAN DIFF REQ WBC (4.8 - 10.8 /CUMM) 8.9 RBC (4.70 - 6.10 /CUMM) 4.56 L Hgb (14.0 - 18.0 G/DL) 14.0 Hct (42 - 52 %) 41.2 L MCV (80.0 - 94.0 FL) 90.3 MCH (27.0 - 31.0 PG) 30.6 MCHC (33.0 - 37.0 G/DL) 33.9 RDW (11.5 - 14.5 %) 16.4 H Plt Count (130 - 400 /CUMM) 96 L MPV (7.4 - 10.4 FL) 9.1 Gran % (42.2 - 75.2 %) 73.6 Lymphocytes % (20.5 - 51.1 %) 24.4 Monocytes % (1.7 - 9.3 %) 1.7 Eosinophils % (0 - 5 %) 0 Basophils % (0.0 - 2.0 %) 0.3 Absolute Granulocytes (1.4 - 6.5 /CUMM) 6.6 H Absolute Lymphocytes (1.2 - 3.4 /CUMM) 2.2 Absolute Monocytes (0.10 - 0.60 /CUMM) 0.1 Absolute Eosinophils (0.0 - 0.7 /CUMM) 0 Absolute Basophils (0.0 - 0.2 /CUMM) 0 03/27 181 Blood Gas pH (7.35 - 7.45 PH) 7.12 *L pCO2 (35 - 45 TORR) 38 pO2 (80 - 100 TORR) 75 L HCO3 (21 - 28 MEQ/L) 12 L Bicarbonate Actual (22 - 26 MEQ/L) 6 L ABG O2 Sat (Measured) (>96.0 %) 91.5 L Mixed VBG pH (7.31 - 7.41 PH) 6.78 L Mixed VBG pCO2 (41 - 51 TORR) 43 Mixed VBG O2 Saturation (35 - 45 TORR) 49 H Carboxyhemoglobin (1.5 - 5.0 %) 0.3 L 0.5 L O2 Concentration % 100 100 Respiration Rate (BPM) 28 28 O2 Delivery Method VENT VENT Vent Mode VC/AC CMV Expiratory Pressure (CMH2O/P) 5 5 Tidal Volume (CC) 600 600 Pressure Support (CMH2O/P) Pending Coagulation Fibrinogen Activity Cancelled Miscellaneous Phlebotomy Draw Site RIGHT RADIAL CENTRAL LINE 03/27 181 181 Chemistry Potassium (3.5 - 5.1 mmol/L) 6.6 *H Lactic Acid (0.7 - 2.1 mmol/L) 17.1 H Cancelled Troponin I (<0.11 ng/ml) Cancelled 0.13 *H 03/27 1800 Chemistry Ammonia (9 - 30 umol/L) 161 H Troponin I Cancelled Coagulation PT (9.4 - 12.5 SEC) 27.6 H INR (0.90 - 1.17) 2.51 H APTT (25 - 37 SEC) > 120 *H Fibrinogen Activity (200 - 393 MG/DL) 47 L Hematology CBC w Diff NO MAN DIFF REQ WBC (4.8 - 10.8 /CUMM) 9.8 RBC (4.70 - 6.10 /CUMM) 2.34 L Hgb (14.0 - 18.0 G/DL) 7.3 *L Hct (42 - 52 %) 22.2 L MCV (80.0 - 94.0 FL) 94.9 H MCH (27.0 - 31.0 PG) 31.1 H MCHC (33.0 - 37.0 G/DL) 32.8 L RDW (11.5 - 14.5 %) 16.9 H Plt Count (130 - 400 /CUMM) 49 L MPV (7.4 - 10.4 FL) 10.2 Gran % (42.2 - 75.2 %) 56.8 Lymphocytes % (20.5 - 51.1 %) 38.4 Monocytes % (1.7 - 9.3 %) 4.4 Eosinophils % (0 - 5 %) 0.2 Basophils % (0.0 - 2.0 %) 0.2 Absolute Granulocytes (1.4 - 6.5 /CUMM) 5.6 Absolute Lymphocytes (1.2 - 3.4 /CUMM) 3.8 H Absolute Monocytes (0.10 - 0.60 /CUMM) 0.4 Absolute Eosinophils (0.0 - 0.7 /CUMM) 0 Absolute Basophils (0.0 - 0.2 /CUMM) 0 03/27 03/27 1735 1635 Blood Gas pH (7.35 - 7.45 PH) 6.93 *L pCO2 (35 - 45 TORR) 26 L pO2 (80 - 100 TORR) 245 H HCO3 (21 - 28 MEQ/L) 6 L ABG O2 Sat (Measured) (>96.0 %) 96.0 Carboxyhemoglobin (1.5 - 5.0 %) 0.2 L O2 Concentration % 100 O2 Delivery Method BAG Chemistry Lactic Acid (0.7 - 2.1 mmol/L) 10.5 H Miscellaneous Phlebotomy Draw Site RIGHT RADIAL 03/27 03/27 03/27 1635 1600 1508 Chemistry Potassium (3.5 - 5.1 mmol/L) 7.3 *H Creatinine (0.7 - 1.2 mg/dL) 11.1 *H Estimated GFR (>60 ml/min) 5 L 0 L Troponin I Cancelled Hematology CBC w Diff NO MAN DIFF REQ WBC (4.8 - 10.8 /CUMM) 15.3 H RBC (4.70 - 6.10 /CUMM) 1.69 L Hgb (14.0 - 18.0 G/DL) 5.5 *L Hct (42 - 52 %) 16.4 *L MCV (80.0 - 94.0 FL) 97.2 H MCH (27.0 - 31.0 PG) 32.7 H MCHC (33.0 - 37.0 G/DL) 33.6 RDW (11.5 - 14.5 %) 18.0 H Plt Count (130 - 400 /CUMM) 93 L MPV (7.4 - 10.4 FL) 9.8 Gran % (42.2 - 75.2 %) 71.0 Lymphocytes % (20.5 - 51.1 %) 24.5 Monocytes % (1.7 - 9.3 %) 4.2 Eosinophils % (0 - 5 %) 0 Basophils % (0.0 - 2.0 %) 0.3 Absolute Granulocytes (1.4 - 6.5 /CUMM) 10.8 H Absolute Lymphocytes (1.2 - 3.4 /CUMM) 3.7 H Absolute Monocytes (0.10 - 0.60 /CUMM) 0.6 Absolute Eosinophils (0.0 - 0.7 /CUMM) 0 Absolute Basophils (0.0 - 0.2 /CUMM) 0 03/27 03/27 03/27 1508 1200 1145 Blood Gas pH (7.35 - 7.45 PH) 7.26 *L pCO2 (35 - 45 TORR) 25 L pO2 (80 - 100 TORR) 83 HCO3 (21 - 28 MEQ/L) 11 L ABG O2 Sat (Measured) (>96.0 %) 92.0 L Carboxyhemoglobin (1.5 - 5.0 %) 0.3 L O2 Concentration % 2L O2 Delivery Method NC Chemistry Sodium (137 - 145 mmol/L) 130 L Potassium (3.5 - 5.1 mmol/L) 6.9 *H Chloride (98 - 107 mmol/L) 98 Carbon Dioxide (22 - 30 mmol/L) 9 *L Anion Gap (5 - 16) 23 H BUN (9 - 20 mg/dL) 113 *H Creatinine (0.7 - 1.2 mg/dL) 10.8 *H Estimated GFR (>60 ml/min) 2 L Glucose (65 - 99 mg/dL) 69 Calcium (8.4 - 10.2 mg/dL) 4.2 *L Phosphorus (2.5 - 4.5 mg/dL) 11.5 H Magnesium (1.6 - 2.3 mg/dL) 1.7 Total Bilirubin (0.2 - 1.3 mg/dL) 3.5 H AST (17 - 59 U/L) 4282 H ALT (21 - 72 U/L) 712 H Ammonia (9 - 30 umol/L) 32 H Albumin (3.5 - 5.0 g/dL) 1.9 L Hematology CBC w Diff MAN DIFF ORDERED WBC (4.8 - 10.8 /CUMM) 15.1 H RBC (4.70 - 6.10 /CUMM) 1.85 L Hgb (14.0 - 18.0 G/DL) 6.1 *L Hct (42 - 52 %) 17.6 *L MCV (80.0 - 94.0 FL) 95.3 H MCH (27.0 - 31.0 PG) 33.0 H MCHC (33.0 - 37.0 G/DL) 34.6 RDW (11.5 - 14.5 %) 18.0 H Plt Count (130 - 400 /CUMM) 97 L MPV (7.4 - 10.4 FL) 9.7 Gran % (42.2 - 75.2 %) 76.0 H Lymphocytes % (20.5 - 51.1 %) 19.9 L Monocytes % (1.7 - 9.3 %) 4.1 Eosinophils % (0 - 5 %) 0 Basophils % (0.0 - 2.0 %) 0 Absolute Granulocytes (1.4 - 6.5 /CUMM) 11.5 H Segmented Neutrophils (42.2 - 75.2 %) 59 Band Neutrophils (0.0 - 5.0 %) 13 H Absolute Lymphocytes (1.2 - 3.4 /CUMM) 3.0 Lymphocytes (20.5 - 51.1 %) 24 Monocytes (1.7 - 9.3 %) 4 Absolute Monocytes (0.10 - 0.60 /CUMM) 0.6 Absolute Eosinophils (0.0 - 0.7 /CUMM) 0 Absolute Basophils (0.0 - 0.2 /CUMM) 0 Platelet Estimate (ADEQUATE) DECREASED Anisocytosis 1+ Macrocytic Cells FEW Miscellaneous Phlebotomy Draw Site LEFT RADIAL 03/27 03/27 03/27 1145 1125 1125 Chemistry Sodium (137 - 145 mmol/L) 131 L Potassium (3.5 - 5.1 mmol/L) 6.9 *H Chloride (98 - 107 mmol/L) 99 Carbon Dioxide (22 - 30 mmol/L) 10 L Anion Gap (5 - 16) 23 H BUN (9 - 20 mg/dL) 113 *H Creatinine (0.7 - 1.2 mg/dL) 4.2 H Estimated GFR (>60 ml/min) 15 L Glucose (65 - 99 mg/dL) 86 Lactic Acid (0.7 - 2.1 mmol/L) 6.9 H Calcium (8.4 - 10.2 mg/dL) 4.2 *L Phosphorus (2.5 - 4.5 mg/dL) 10.9 H Magnesium (1.6 - 2.3 mg/dL) 1.7 Total Bilirubin (0.2 - 1.3 mg/dL) 3.4 H AST (17 - 59 U/L) 4947 H ALT (21 - 72 U/L) 733 H Troponin I (<0.11 ng/ml) 0.17 *H Albumin (3.5 - 5.0 g/dL) 1.9 L Triglycerides (<150 mg/dL) 518 H Coagulation PT (9.4 - 12.5 SEC) Cancelled 19.6 H INR (0.90 - 1.17) Cancelled 1.79 H APTT (25 - 37 SEC) 46 H Serology HIV 1&2 Ab Western Blot (NONREACTIVE) NONREACTIVE 03/27 03/27 03/27 1050 UNK 0730 Chemistry Sodium (137 - 145 mmol/L) Cancelled Cancelled 130 L Potassium (3.5 - 5.1 mmol/L) Cancelled Cancelled 6.3 *H Chloride (98 - 107 mmol/L) Cancelled Cancelled 95 L Carbon Dioxide (22 - 30 mmol/L) Cancelled Cancelled 14 L Anion Gap (5 - 16) Cancelled Cancelled 20 H BUN (9 - 20 mg/dL) Cancelled Cancelled 113 *H Creatinine (0.7 - 1.2 mg/dL) Cancelled Cancelled 10.3 *H Estimated GFR (>60 ml/min) 5 L BUN/Creatinine Ratio (7 - 25 %) Cancelled 11.0 Glucose Cancelled Uric Acid Cancelled Calcium (8.4 - 10.2 mg/dL) Cancelled Cancelled 4.7 *L Phosphorus (2.5 - 4.5 mg/dL) Cancelled Cancelled 10.2 H Magnesium Cancelled Total Bilirubin (0.2 - 1.3 mg/dL) Cancelled 4.1 H Direct Bilirubin (< 0.4 mg/dL) 3.6 H AST (17 - 59 U/L) Cancelled 5661 H ALT (21 - 72 U/L) Cancelled 852 H Alkaline Phosphatase (< 127 U/L) 278 H Creatine Kinase (55 - 170 U/L) 732586 H Total Protein (6.3 - 8.2 g/dL) 5.0 L Albumin (3.5 - 5.0 g/dL) Cancelled 2.2 L Hematology CBC w Diff MAN DIFF ORDERED WBC (4.8 - 10.8 /CUMM) 11.4 H RBC (4.70 - 6.10 /CUMM) 2.30 L Hgb (14.0 - 18.0 G/DL) 7.5 L Hct (42 - 52 %) 21.7 L MCV (80.0 - 94.0 FL) 94.1 H MCH (27.0 - 31.0 PG) 32.6 H MCHC (33.0 - 37.0 G/DL) 34.6 RDW (11.5 - 14.5 %) 17.4 H Plt Count (130 - 400 /CUMM) 109 L MPV (7.4 - 10.4 FL) 9.6 Segmented Neutrophils (42.2 - 75.2 %) 80 H Band Neutrophils (0.0 - 5.0 %) 3 Lymphocytes (20.5 - 51.1 %) 13 L Monocytes (1.7 - 9.3 %) 3 Eosinophils (0 - 5.0 %) 1 Platelet Estimate (ADEQUATE) DECREASED Polychromasia 1+ Anisocytosis 1+ Serology Ehrlichia DNA (PCR) Pending 03/27 03/27 03/27 0640 0640 0600 Serology Lyme Disease Antibody Cancelled Toxicology Urine Opiates Screen (>2000 NG/ML) < 100 Methadone Screen (>300 NG/ML) > 735 H Barbiturate Screen (>200 NG/ML) < 60 Ur Phencyclidine Scrn (>25 NG/ML) < 6.00 Amphetamines Screen (>1000 NG/ML) < 100 U Benzodiazepines Scrn (>200 NG/ML) 431 H Urine Cocaine Screen (>300 NG/ML) < 50 Urine Cannabis Screen (>50 NG/ML) < 5.00 Urines Urinalysis MOD H Urine Color (YEL,AMB,STR) [place] Urine Clarity (CLEAR) HAZY H Urine pH (5.0 - 8.0) 6.0 Ur Specific [place] (1.001 - 1.035) 1.015 Urine Protein (NEG,<30 MG/DL) 100 H Urine Ketones (NEG) NEG Urine Nitrite (NEG) NEG Urine Bilirubin (NEG) POS@ICTO H Urine Urobilinogen (0.1 - 1.0 EU/dl) 0.2 Ur Leukocyte Esterase (NEG) NEG Ur Microscopic SEDIMENT EXAMINED Urine RBC (0 - 5 /HPF) 1-3 Urine WBC (0 - 2 /HPF) 25-50 H Ur Epithelial Cells (NONE,FEW) RARE Urine Bacteria (NEG/NONE) MANY H Granular Casts (NONE /LPF) 15-25 H Urine Hemoglobin (NEG) LARGE H Urine Osmolality (300 - 1000 MOSM/KG) 313 Ur Random Creatinine (mg/dL) 91.1 Ur Random Sodium (30 - 90 mmol/L) 74 Ur Random Potassium (mmol/L) 46.7 Fraction Sodium Excret (<1% %) 5.6 H Urine Glucose (N MG/DL) NEG 03/26 1700 Chemistry Sodium (137 - 145 mmol/L) 130 L Potassium (3.5 - 5.1 mmol/L) 4.7 Chloride (98 - 107 mmol/L) 93 L Carbon Dioxide (22 - 30 mmol/L) 19 L Anion Gap (5 - 16) 18 H BUN (9 - 20 mg/dL) 103 *H Creatinine (0.7 - 1.2 mg/dL) 9.0 *H Estimated GFR (>60 ml/min) 6 L BUN/Creatinine Ratio (7 - 25 %) 11.4 Glucose (65 - 99 mg/dL) 88 Serum Osmolality (285 - 295 MOSM/KG) 318 H Lactic Acid (0.7 - 2.1 mmol/L) 1.7 2.2 H Calcium (8.4 - 10.2 mg/dL) 5.8 *L Phosphorus (2.5 - 4.5 mg/dL) 8.6 H Magnesium (1.6 - 2.3 mg/dL) 1.7 Total Bilirubin (0.2 - 1.3 mg/dL) 4.3 H Direct Bilirubin (< 0.4 mg/dL) 3.7 H AST (17 - 59 U/L) 6928 H ALT (21 - 72 U/L) 1128 H Alkaline Phosphatase (< 127 U/L) 376 H Creatine Kinase (55 - 170 U/L) > 26517 H Troponin I (<0.11 ng/ml) 0.15 *H Total Protein (6.3 - 8.2 g/dL) 6.1 L Albumin (3.5 - 5.0 g/dL) 2.7 L Globulin (1.9 - 4.2 gm/dL) 3.4 Albumin/Globulin Ratio (1.1 - 2.2 %) 0.8 L Lipase (23 - 300 U/L) 793 H 25-OH Vitamin D Total (30 - 100 ng/ml) 14.0 L Coagulation PT (9.4 - 12.5 SEC) 16.0 H INR (0.90 - 1.17) 1.46 H APTT (25 - 37 SEC) 39 H Hematology CBC w Diff MAN DIFF ORDERED WBC (4.8 - 10.8 /CUMM) 11.9 H RBC (4.70 - 6.10 /CUMM) 3.11 L Hgb (14.0 - 18.0 G/DL) 10.0 L Hct (42 - 52 %) 28.9 L MCV (80.0 - 94.0 FL) 93.0 MCH (27.0 - 31.0 PG) 32.2 H MCHC (33.0 - 37.0 G/DL) 34.7 RDW (11.5 - 14.5 %) 16.9 H Plt Count (130 - 400 /CUMM) 116 L MPV (7.4 - 10.4 FL) 9.3 Segmented Neutrophils (42.2 - 75.2 %) 72 Lymphocytes (20.5 - 51.1 %) 26 Monocytes (1.7 - 9.3 %) 1 L Eosinophils (0 - 5.0 %) 1 Platelet Estimate (ADEQUATE) DECREASED Anisocytosis 1+ Target Cells RARE Serology Hepatitis A IgM Ab (NONREACTIVE) NONREACTIVE Hep Bs Antigen (NONREACTIVE) NONREACTIVE Hep B Core IgM Ab Conf (NONREACTIVE) NONREACTIVE Hepatitis C Antibody (NONREACTIVE) NONREACTIVE Toxicology Acetaminophen (10.0 - 30.0 ug/mL) < 10.0 L Serum Alcohol (<10 MG/DL) < 10.0 Imaging/Other Studies: 03/26/18: EKG- NSR @ 90, nl axis, borderline prolonged QT interval, no acute ischemia. 03/26/18: CT ABD & PELVIS W/O IV CONTRAST (*SHERIN)- Hepatomegaly with hepatic steatosis. No focal lesion seen. No dilated ducts. Normal GB. Normal pancreas & spleen (within the limits of a non-IV contrast study). No ascites. Normal kidneys, without hydronephrosis. Nonspecific mild mural thickening involving distal ascending colon and right transverse colon. Nonspecific colitis likely inflammatory or infectious etiology. No proximal bowel obstruction. AP not seen (intact per pt). Scattered sigmoid diverticulosis without diverticulitis. DJD. 03/27/18: ULTRASOUND AND FLUOROSCOPICALLY GUIDED RIGHT INTERNAL JUGULAR VEIN TEMPORARY DIALYSIS CATHETER PLACEMENT- Successful placement of temporary hemodialysis catheter via the right internal jugular vein, per Dr. Meredith. 03/27/18: XR PORTABLE CHEST- Limited evaluation. Endotracheal tube terminates 3.8 cm above the sheree. Distal end of the enteric tube is not clearly visualized, likely in the distal esophagus. 03/28/18: XRY-PORTABLE CHEST XRAY- 1. ET tube 5.2 cm above sheree. 2. Right internal jugular line tip at confluence SVC and right atrium. 3. NG tube poorly visualized, likely below diaphragm with manipulation of film windows. 4. Low lung volumes. Bilateral mid zone atelectasis. 03/28/18: EKG- NSR@ 80, nl axis, 1st degree AVB with HI .216, voltage throughout , borderline prolonged QT interval.
[2018-03-28 11:46] LABS: ABSOLUTE BASOPHIL COUNT 0 /CUMM (0.0-0.2); ABSOLUTE EOSINOPHIL COUNT 0 /CUMM (0.0-0.7); ABSOLUTE GRANULOCYTE CT 6.4 /CUMM (1.4-6.5); ABSOLUTE LYMPH COUNT 2.3 /CUMM (1.2-3.4); ABSOLUTE MONOCYTE COUNT 0.5 /CUMM (0.10-0.60); BASOPHIL % 0.1 % (0.0-2.0); EOSINOPHIL % 0.2 % (0-5); GRANULOCYTE % 69.2 % (42.2-75.2); HEMATOCRIT 22.6 % (42-52); MEAN CORPUSCULAR HGB 31.1 PG (27.0-31.0); MEAN CORPUSCULAR HGB CONC 34.7 G/DL (33.0-37.0); MEAN CORPUSCULAR VOLUME 89.6 FL (80.0-94.0); MEAN PLATELET VOLUME 9.6 FL (7.4-10.4); RED BLOOD CELL CT 2.53 /CUMM (4.70-6.10); WHITE BLOOD CELL COUNT 9.2 /CUMM (4.8-10.8)
--- NOTE | 2018-03-28 12:44 | PN- Nephrology ---
Assessment/Plan Nephrology Assessment: SHERIN - 2/2 rhabdo. Started HD earlier today but not hemodynamically stable enough to continue. Hemorrhagic shock - s/p massive transfusion protocol - not stable enough for EGD. Cardiac arrest - precipitating factors including bleed and hyperkalemia. Suggestion: -Will try again for HD tomorrow depending on hemodynamics and labs Please call [phone] with ?'s Subjective Subjective: Multiple cardiac arrests HD attempted earlier today - had to be stopped 2/2 hemodynamic instability - K 5.2 Had massive transfusion protocol - Hg 7.9 - EGD deferred given hemodynamic instability Objective Vital Signs and I&Os Vital Signs Date Time Temp Pulse Resp B/P B/P Pulse O2 O2 Flow FiO2 Mean Ox Delivery Rate 03/28 1125 100 03/28 0755 100 03/28 0755 85 32 138/60 03/28 0614 100 03/28 0600 96.6 88 28 150/67 03/28 0404 81 115/82 03/28 0400 96.6 80 28 115/82 03/28 0400 100 Ventilator 100% 03/28 0306 100 03/28 0200 96.7 83 28 120/62 03/28 0044 100 03/28 0031 86 126/66 / 0000 96.7 87 29 105/74 / 0000 100 Ventilator 100% / 0000 96.7 87 29 98/00 100 Ventilator 100% 03/27 2256 100 / 2200 96.0 102 28 82/44 / 2020 68/00 03/27 2000 96.0 66 32 134/57 03/27 2000 92 Ventilator 100% / 1900 100 / 1745 85 80/50 / 1745 85 80/0 03/27 1600 90 22 85/41 03/27 1600 94 Nasal 2.0L Cannula 03/27 1600 95 Nasal 2.0L Cannula 03/27 1600 90 22 85/41 95 Nasal 2.0L Cannula Intake & Output 03/28 1600 03/28 0400 03/27 1600 03/27 0400 03/26 1600 03/26 0400 Intake Total 4673 5885 3750 Output Total 250 1450 75 Balance 4423 4435 3675 Intake, Blood 1800 Product Intake, IV 4673 4085 3750 Intake, Oral 0 0 0 Number 1 Bowel Movements Output, 250 1450 Gastric Drainage Output, Urine 0 75 Patient 278 lb 272 lb Weight Weight Bed scale Measurement Method Physical Exam: Gen - ill appearing, sedated HEENT - +ETT CV - RRR, no m/r/g Chest - clear anteriorly Abd - soft, NTND Ext - no significant edema Neuro - sedated, unresponsive Current Medications: Current Medications Sig/Imani Start time Last Medication Dose Route Stop Time Status Admin Amiodarone HCl/ 150 MG ONCE ONE 03/27 1715 DC 03/27 Dextrose IV 03/27 1724 1745 N/A 1 UNIT Amiodarone HCl/ 150 MG ONCE ONE 03/27 1715 DC 03/27 Dextrose IV 03/27 1724 1745 N/A 1 UNIT Calcium Gluconate 0 .STK-MED ONE 03/28 0547 DC IV Calcium Gluconate 1 GM ONCE ONE 03/28 0545 DC 03/28 Sodium Chloride 100 ML IV 03/28 0644 0551 Ceftriaxone Sodium 1,000 MG DAILY 03/27 2017 CAN IV Ceftriaxone Sodium 1,000 MG Q24H 03/27 0200 AC 03/28 IV 0139 Desmopressin Acetate 12 MCG ONE ONE 03/27 1915 DC 03/27 IV 03/27 2100 2039 Desmopressin Acetate 20 MCG ONE ONE 03/27 1745 DC 03/27 IV 03/27 1746 2005 Dextrose 25 GM ONCE ONE 03/27 1745 DC 03/27 IV 03/27 1746 1745 Dextrose 25 GM ONCE ONE 03/27 1630 DC 03/27 IV 03/27 1631 1745 Dextrose 25 GM ONCE ONE 03/27 1415 CAN IV 03/27 1416 Folic Acid 1 MG DAILY 03/27 0900 AC PO Heparin Sodium 0 .STK-MED ONE 03/27 1306 DC (Porcine) IV Hydrocortisone 100 MG Q8 03/28 0933 AC 03/28 Sodium Succinate IV 1017 Insulin Human Regular 10 UNITS ONCE ONE 03/27 1745 DC 03/27 SC 03/27 1746 1745 Insulin Human Regular 10 UNITS ONCE ONE 03/27 1630 DC 03/27 SC 03/27 1631 1745 Insulin Human Regular 10 UNITS ONCE ONE 03/27 1415 CAN SC 03/27 1416 Lidocaine 0 .STK-MED ONE 03/27 1307 DC .ROUTE Lorazepam 0 Q1P PRN 03/27 0300 AC 03/27 IV 1537 Norepinephrine 8 MG Q6H 03/28 1300 AC Dextrose/Water 500 ML IV Norepinephrine 8 MG Q24H 03/28 0600 03/28 Dextrose/Water 500 ML IV 03/28 1259 0755 Norepinephrine 0 .STK-MED ONE 03/28 0403 DC IV Norepinephrine 0 .STK-MED ONE 03/27 194 DC IV Norepinephrine 4 MG Q24H 03/27 194 DC 03/28 Dextrose/Water 250 ML IV 0404 Norepinephrine 0 .STK-MED ONE 03/27 1919 DC IV Octreotide Acetate 500 MCG Q10H 03/28 0900 AC Dextrose/Water 500 ML IV Octreotide Acetate 50 MCG ONCE ONE 03/27 1815 DC 03/27 IV 03/27 1816 2021 Octreotide Acetate 500 MCG Q10H 03/27 181 DC 03/28 Dextrose/Water 500 ML IV 03/28 0859 0543 Pantoprazole Sodium 40 MG Q5H 03/27 1815 AC 03/28 Sodium Chloride 100 ML IV 1216 Pantoprazole Sodium 40 MG DAILY 03/27 0900 DC 03/27 IV 0848 Phenylephrine HCl 80 MG Q7H 03/28 1530 AC Dextrose/Water 500 ML IV Phenylephrine HCl 80 MG Q17H 03/28 0600 03/28 Dextrose/Water 500 ML IV 03/28 1529 0821 Phenylephrine HCl 40 MG Q17H 03/27 2015 DC 03/28 Dextrose/Water 250 ML IV 0425 Phenylephrine HCl 40 MG Q24H 03/27 2000 MO Dextrose/Water 250 ML IV Phenylephrine HCl 0 .STK-MED ONE 03/27 194 DC .ROUTE Phenylephrine HCl 0 .STK-MED ONE 03/27 191 DC .ROUTE Phenylephrine HCl 0 .STK-MED ONE 03/27 185 DC .ROUTE Phytonadione 10 MG ONCE ONE 03/27 1800 DC 03/27 PR 03/27 1801 2006 Sevelamer HCl 1,200 MG WM 03/27 1015 AC PO Sodium Bicarbonate 150 MEQ Q6H 03/28 0900 AC 03/28 Dextrose/Water 1,000 ML IV 0830 Sodium Bicarbonate 150 MEQ Q6H 03/27 2100 DC 03/28 Dextrose/Water 1,000 ML IV 03/28 0859 0550 Sodium Bicarbonate 75 MEQ Q6H 03/27 1745 DC 03/27 Sodium Chloride 1,000 ML IV 2036 Sodium Chloride 1,000 ML BOLUS ONE 03/27 1645 DC 03/27 IV 03/27 1744 1645 Sodium Chloride 1,000 ML BOLUS ONE 03/27 1645 DC 08/ IV 03/27 1744 1645 Sodium Chloride 1,000 ML Q4H 03/27 1130 AC 03/28 IV 1217 Sodium Polystyrene 60 ML ONCE ONE 03/27 1745 DC Sulfonate IL 03/27 1746 Sodium Polystyrene 60 ML ONCE ONE 03/27 1745 DC Sulfonate IL 03/27 1746 Sodium Polystyrene 120 ML ONCE ONE 03/27 1500 DC Sulfonate PO 03/27 1501 Thiamine HCl 100 MG DAILY 03/27 09 AC PO Vasopressin 40 UNITS Q16H 03/28 0900 AC 03/28 Sodium Chloride 100 ML IV 0917 Vasopressin 40 UNITS Q16H 03/28 0245 DC 03/27 Sodium Chloride 100 ML IV 03/28 081999 Results Pertinent Lab Results: Laboratory Tests 03/28 03/28 1100 0705 Chemistry Sodium Pending Potassium Pending Chloride Pending Carbon Dioxide Pending Anion Gap Pending BUN Pending Creatinine Pending Glucose Pending Lactic Acid Pending Calcium Pending Phosphorus Pending Magnesium Pending Total Bilirubin Pending AST Pending ALT Pending Troponin I Pending Albumin Pending Hematology CBC w Diff NO MAN DIFF REQ MAN DIFF ORDERED WBC (4.8 - 10.8 /CUMM) 9.2 10.6 RBC (4.70 - 6.10 /CUMM) 2.53 L 2.95 L Hgb (14.0 - 18.0 G/DL) 7.9 L 9.1 L Hct (42 - 52 %) 22.6 L 26.5 L MCV (80.0 - 94.0 FL) 89.6 89.8 MCH (27.0 - 31.0 PG) 31.1 H 30.9 MCHC (33.0 - 37.0 G/DL) 34.7 34.4 RDW (11.5 - 14.5 %) 17.0 H 17.4 H Plt Count (130 - 400 /CUMM) 63 L 67 L MPV (7.4 - 10.4 FL) 9.6 9.5 Gran % (42.2 - 75.2 %) 69.2 73.8 Lymphocytes % (20.5 - 51.1 %) 24.7 22.2 Monocytes % (1.7 - 9.3 %) 5.8 3.8 Eosinophils % (0 - 5 %) 0.2 0.1 Basophils % (0.0 - 2.0 %) 0.1 0.1 Absolute Granulocytes (1.4 - 6.5 /CUMM) 6.4 7.8 H Segmented Neutrophils (42.2 - 75.2 %) 54 Band Neutrophils (0.0 - 5.0 %) 9 H Absolute Lymphocytes (1.2 - 3.4 /CUMM) 2.3 2.3 Lymphocytes (20.5 - 51.1 %) 31 Monocytes (1.7 - 9.3 %) 6 Absolute Monocytes (0.10 - 0.60 /CUMM) 0.5 0.4 Absolute Eosinophils (0.0 - 0.7 /CUMM) 0 0 Absolute Basophils (0.0 - 0.2 /CUMM) 0 0 Nucleated RBCs (0.0 - 0.0 /100WBC) 3 H Hypochromic-Microcytic 1+ Poikilocytosis 1+ Anisocytosis 2+ 03/28 03/28 0600 0540 Blood Gas pH (7.35 - 7.45 PH) 7.32 L pCO2 (35 - 45 TORR) 26 L pO2 (80 - 100 TORR) 128 H HCO3 (21 - 28 MEQ/L) 13 L ABG O2 Sat (Measured) (>96.0 %) 98.0 P-50 (Temp Corrected) N Carboxyhemoglobin (1.5 - 5.0 %) 0.3 L O2 Concentration % 100 Respiration Rate (BPM) 28 O2 Delivery Method VENT Vent Mode A/C Expiratory Pressure (CMH2O/P) 5 Tidal Volume (CC) 600 Chemistry Troponin I (<0.11 ng/ml) 1.79 *H Cortisol AM Sample (4.46 - 22.7 ug/dL) 40.0 H Miscellaneous Phlebotomy Draw Site RIGHT RADIAL 03/28 03/28 03/28 0350 0020 0020 Chemistry Sodium (137 - 145 mmol/L) 128 L Potassium (3.5 - 5.1 mmol/L) 5.2 H Chloride (98 - 107 mmol/L) 96 L Carbon Dioxide (22 - 30 mmol/L) 13 L Anion Gap (5 - 16) 19 H BUN (9 - 20 mg/dL) 61 H Creatinine (0.7 - 1.2 mg/dL) 6.8 *H Estimated GFR (>60 ml/min) 9 L Glucose (65 - 99 mg/dL) 244 H Lactic Acid (0.7 - 2.1 mmol/L) 11.3 H Calcium (8.4 - 10.2 mg/dL) 4.8 *L Phosphorus (2.5 - 4.5 mg/dL) 9.8 H Magnesium (1.6 - 2.3 mg/dL) 2.1 Total Bilirubin (0.2 - 1.3 mg/dL) 5.3 H AST (17 - 59 U/L) 5005 H ALT (21 - 72 U/L) 883 H Troponin I (<0.11 ng/ml) 0.79 *H Albumin (3.5 - 5.0 g/dL) 1.8 L Coagulation PT (9.4 - 12.5 SEC) 23.6 H INR (0.90 - 1.17) 2.15 H Hematology CBC w Diff MAN DIFF ORDERED WBC (4.8 - 10.8 /CUMM) 10.9 H RBC (4.70 - 6.10 /CUMM) 3.25 L Hgb (14.0 - 18.0 G/DL) 10.0 L Hct (42 - 52 %) 29.1 L MCV (80.0 - 94.0 FL) 89.5 MCH (27.0 - 31.0 PG) 30.7 MCHC (33.0 - 37.0 G/DL) 34.3 RDW (11.5 - 14.5 %) 16.8 H Plt Count (130 - 400 /CUMM) 77 L MPV (7.4 - 10.4 FL) 9.8 Gran % (42.2 - 75.2 %) 76.9 H Lymphocytes % (20.5 - 51.1 %) 19.0 L Monocytes % (1.7 - 9.3 %) 4.0 Eosinophils % (0 - 5 %) 0 Basophils % (0.0 - 2.0 %) 0.1 Absolute Granulocytes (1.4 - 6.5 /CUMM) 8.4 H Segmented Neutrophils (42.2 - 75.2 %) 65 Band Neutrophils (0.0 - 5.0 %) 12 H Absolute Lymphocytes (1.2 - 3.4 /CUMM) 2.1 Lymphocytes (20.5 - 51.1 %) 18 L Monocytes (1.7 - 9.3 %) 1 L Absolute Monocytes (0.10 - 0.60 /CUMM) 0.4 Absolute Eosinophils (0.0 - 0.7 /CUMM) 0 Absolute Basophils (0.0 - 0.2 /CUMM) 0 Metamyelocytes (0.0 - 1.0 %) 4 H Nucleated RBCs (0.0 - 0.0 /100WBC) 3 H Platelet Estimate (ADEQUATE) DECREASED Polychromasia 1+ 03/28 03/27 0008 2230 Chemistry Sodium Cancelled Potassium Cancelled Chloride Cancelled Carbon Dioxide Cancelled Anion Gap Cancelled BUN Cancelled Creatinine Cancelled Glucose Cancelled Calcium Cancelled Phosphorus Cancelled Magnesium Cancelled Total Bilirubin Cancelled AST Cancelled ALT Cancelled Albumin Cancelled Coagulation PT (9.4 - 12.5 SEC) 16.5 H INR (0.90 - 1.17) 1.51 H APTT (25 - 37 SEC) 66 H Fibrinogen Activity (200 - 393 MG/DL) 155 L Hematology CBC w Diff NO MAN DIFF REQ WBC (4.8 - 10.8 /CUMM) 8.9 RBC (4.70 - 6.10 /CUMM) 4.56 L Hgb (14.0 - 18.0 G/DL) 14.0 Hct (42 - 52 %) 41.2 L MCV (80.0 - 94.0 FL) 90.3 MCH (27.0 - 31.0 PG) 30.6 MCHC (33.0 - 37.0 G/DL) 33.9 RDW (11.5 - 14.5 %) 16.4 H Plt Count (130 - 400 /CUMM) 96 L MPV (7.4 - 10.4 FL) 9.1 Gran % (42.2 - 75.2 %) 73.6 Lymphocytes % (20.5 - 51.1 %) 24.4 Monocytes % (1.7 - 9.3 %) 1.7 Eosinophils % (0 - 5 %) 0 Basophils % (0.0 - 2.0 %) 0.3 Absolute Granulocytes (1.4 - 6.5 /CUMM) 6.6 H Absolute Lymphocytes (1.2 - 3.4 /CUMM) 2.2 Absolute Monocytes (0.10 - 0.60 /CUMM) 0.1 Absolute Eosinophils (0.0 - 0.7 /CUMM) 0 Absolute Basophils (0.0 - 0.2 /CUMM) 0 03/27 181 Blood Gas pH (7.35 - 7.45 PH) 7.12 *L pCO2 (35 - 45 TORR) 38 pO2 (80 - 100 TORR) 75 L HCO3 (21 - 28 MEQ/L) 12 L ABG O2 Sat (Measured) (>96.0 %) 91.5 L Carboxyhemoglobin (1.5 - 5.0 %) 0.3 L O2 Concentration % 100 Respiration Rate (BPM) 28 O2 Delivery Method VENT Vent Mode VC/AC Expiratory Pressure (CMH2O/P) 5 Tidal Volume (CC) 600 Pressure Support (CMH2O/P) Pending Coagulation Fibrinogen Activity Cancelled Miscellaneous Phlebotomy Draw Site RIGHT RADIAL Toxicology Methadone Screen Cancelled Barbiturate Screen Cancelled Ur Phencyclidine Scrn Cancelled Amphetamines Screen Cancelled U Benzodiazepines Scrn Cancelled Urine Cocaine Screen Cancelled Urine Cannabis Screen Cancelled 03/27 181 1810 Blood Gas Bicarbonate Actual (22 - 26 MEQ/L) 6 L Mixed VBG pH (7.31 - 7.41 PH) 6.78 L Mixed VBG pCO2 (41 - 51 TORR) 43 Mixed VBG O2 Saturation (35 - 45 TORR) 49 H Carboxyhemoglobin (1.5 - 5.0 %) 0.5 L O2 Concentration % 100 Respiration Rate (BPM) 28 O2 Delivery Method VENT Vent Mode CMV Expiratory Pressure (CMH2O/P) 5 Tidal Volume (CC) 600 Chemistry Potassium (3.5 - 5.1 mmol/L) 6.6 *H Lactic Acid (0.7 - 2.1 mmol/L) 17.1 H Troponin I (<0.11 ng/ml) Cancelled 0.13 *H Miscellaneous Phlebotomy Draw Site CENTRAL LINE 03/27 1810 1800 Chemistry Lactic Acid Cancelled Ammonia (9 - 30 umol/L) 161 H Troponin I Cancelled Coagulation PT (9.4 - 12.5 SEC) 27.6 H INR (0.90 - 1.17) 2.51 H APTT (25 - 37 SEC) > 120 *H Fibrinogen Activity (200 - 393 MG/DL) 47 L Hematology CBC w Diff NO MAN DIFF REQ WBC (4.8 - 10.8 /CUMM) 9.8 RBC (4.70 - 6.10 /CUMM) 2.34 L Hgb (14.0 - 18.0 G/DL) 7.3 *L Hct (42 - 52 %) 22.2 L MCV (80.0 - 94.0 FL) 94.9 H MCH (27.0 - 31.0 PG) 31.1 H MCHC (33.0 - 37.0 G/DL) 32.8 L RDW (11.5 - 14.5 %) 16.9 H Plt Count (130 - 400 /CUMM) 49 L MPV (7.4 - 10.4 FL) 10.2 Gran % (42.2 - 75.2 %) 56.8 Lymphocytes % (20.5 - 51.1 %) 38.4 Monocytes % (1.7 - 9.3 %) 4.4 Eosinophils % (0 - 5 %) 0.2 Basophils % (0.0 - 2.0 %) 0.2 Absolute Granulocytes (1.4 - 6.5 /CUMM) 5.6 Absolute Lymphocytes (1.2 - 3.4 /CUMM) 3.8 H Absolute Monocytes (0.10 - 0.60 /CUMM) 0.4 Absolute Eosinophils (0.0 - 0.7 /CUMM) 0 Absolute Basophils (0.0 - 0.2 /CUMM) 0 03/27 03/27 1735 1635 Blood Gas pH (7.35 - 7.45 PH) 6.93 *L pCO2 (35 - 45 TORR) 26 L pO2 (80 - 100 TORR) 245 H HCO3 (21 - 28 MEQ/L) 6 L ABG O2 Sat (Measured) (>96.0 %) 96.0 Carboxyhemoglobin (1.5 - 5.0 %) 0.2 L O2 Concentration % 100 O2 Delivery Method BAG Chemistry Lactic Acid (0.7 - 2.1 mmol/L) 10.5 H Miscellaneous Phlebotomy Draw Site RIGHT RADIAL 03/27 03/27 03/27 1635 1600 1508 Chemistry Potassium (3.5 - 5.1 mmol/L) 7.3 *H Creatinine (0.7 - 1.2 mg/dL) 11.1 *H Estimated GFR (>60 ml/min) 5 L 0 L Troponin I Cancelled Hematology CBC w Diff NO MAN DIFF REQ WBC (4.8 - 10.8 /CUMM) 15.3 H RBC (4.70 - 6.10 /CUMM) 1.69 L Hgb (14.0 - 18.0 G/DL) 5.5 *L Hct (42 - 52 %) 16.4 *L MCV (80.0 - 94.0 FL) 97.2 H MCH (27.0 - 31.0 PG) 32.7 H MCHC (33.0 - 37.0 G/DL) 33.6 RDW (11.5 - 14.5 %) 18.0 H Plt Count (130 - 400 /CUMM) 93 L MPV (7.4 - 10.4 FL) 9.8 Gran % (42.2 - 75.2 %) 71.0 Lymphocytes % (20.5 - 51.1 %) 24.5 Monocytes % (1.7 - 9.3 %) 4.2 Eosinophils % (0 - 5 %) 0 Basophils % (0.0 - 2.0 %) 0.3 Absolute Granulocytes (1.4 - 6.5 /CUMM) 10.8 H Absolute Lymphocytes (1.2 - 3.4 /CUMM) 3.7 H Absolute Monocytes (0.10 - 0.60 /CUMM) 0.6 Absolute Eosinophils (0.0 - 0.7 /CUMM) 0 Absolute Basophils (0.0 - 0.2 /CUMM) 0 03/27 03/27 03/27 1508 1200 1145 Blood Gas pH (7.35 - 7.45 PH) 7.26 *L pCO2 (35 - 45 TORR) 25 L pO2 (80 - 100 TORR) 83 HCO3 (21 - 28 MEQ/L) 11 L ABG O2 Sat (Measured) (>96.0 %) 92.0 L Carboxyhemoglobin (1.5 - 5.0 %) 0.3 L O2 Concentration % 2L O2 Delivery Method NC Chemistry Sodium (137 - 145 mmol/L) 130 L Potassium (3.5 - 5.1 mmol/L) 6.9 *H Chloride (98 - 107 mmol/L) 98 Carbon Dioxide (22 - 30 mmol/L) 9 *L Anion Gap (5 - 16) 23 H BUN (9 - 20 mg/dL) 113 *H Creatinine (0.7 - 1.2 mg/dL) 10.8 *H Estimated GFR (>60 ml/min) 2 L Glucose (65 - 99 mg/dL) 69 Calcium (8.4 - 10.2 mg/dL) 4.2 *L Phosphorus (2.5 - 4.5 mg/dL) 11.5 H Magnesium (1.6 - 2.3 mg/dL) 1.7 Total Bilirubin (0.2 - 1.3 mg/dL) 3.5 H AST (17 - 59 U/L) 4282 H ALT (21 - 72 U/L) 712 H Ammonia (9 - 30 umol/L) 32 H Albumin (3.5 - 5.0 g/dL) 1.9 L Hematology CBC w Diff MAN DIFF ORDERED WBC (4.8 - 10.8 /CUMM) 15.1 H RBC (4.70 - 6.10 /CUMM) 1.85 L Hgb (14.0 - 18.0 G/DL) 6.1 *L Hct (42 - 52 %) 17.6 *L MCV (80.0 - 94.0 FL) 95.3 H MCH (27.0 - 31.0 PG) 33.0 H MCHC (33.0 - 37.0 G/DL) 34.6 RDW (11.5 - 14.5 %) 18.0 H Plt Count (130 - 400 /CUMM) 97 L MPV (7.4 - 10.4 FL) 9.7 Gran % (42.2 - 75.2 %) 76.0 H Lymphocytes % (20.5 - 51.1 %) 19.9 L Monocytes % (1.7 - 9.3 %) 4.1 Eosinophils % (0 - 5 %) 0 Basophils % (0.0 - 2.0 %) 0 Absolute Granulocytes (1.4 - 6.5 /CUMM) 11.5 H Segmented Neutrophils (42.2 - 75.2 %) 59 Band Neutrophils (0.0 - 5.0 %) 13 H Absolute Lymphocytes (1.2 - 3.4 /CUMM) 3.0 Lymphocytes (20.5 - 51.1 %) 24 Monocytes (1.7 - 9.3 %) 4 Absolute Monocytes (0.10 - 0.60 /CUMM) 0.6 Absolute Eosinophils (0.0 - 0.7 /CUMM) 0 Absolute Basophils (0.0 - 0.2 /CUMM) 0 Platelet Estimate (ADEQUATE) DECREASED Anisocytosis 1+ Macrocytic Cells FEW Miscellaneous Phlebotomy Draw Site LEFT RADIAL 03/27 03/27 03/27 1145 1125 1125 Chemistry Sodium (137 - 145 mmol/L) 131 L Potassium (3.5 - 5.1 mmol/L) 6.9 *H Chloride (98 - 107 mmol/L) 99 Carbon Dioxide (22 - 30 mmol/L) 10 L Anion Gap (5 - 16) 23 H BUN (9 - 20 mg/dL) 113 *H Creatinine (0.7 - 1.2 mg/dL) 4.2 H Estimated GFR (>60 ml/min) 15 L Glucose (65 - 99 mg/dL) 86 Lactic Acid (0.7 - 2.1 mmol/L) 6.9 H Calcium (8.4 - 10.2 mg/dL) 4.2 *L Phosphorus (2.5 - 4.5 mg/dL) 10.9 H Magnesium (1.6 - 2.3 mg/dL) 1.7 Total Bilirubin (0.2 - 1.3 mg/dL) 3.4 H AST (17 - 59 U/L) 4947 H ALT (21 - 72 U/L) 733 H Troponin I (<0.11 ng/ml) 0.17 *H Albumin (3.5 - 5.0 g/dL) 1.9 L Triglycerides (<150 mg/dL) 518 H Coagulation PT (9.4 - 12.5 SEC) Cancelled 19.6 H INR (0.90 - 1.17) Cancelled 1.79 H APTT (25 - 37 SEC) 46 H Serology HIV 1&2 Ab Western Blot (NONREACTIVE) NONREACTIVE 03/27 03/27 03/27 1050 UNK 0730 Chemistry Sodium (137 - 145 mmol/L) Cancelled Cancelled 130 L Potassium (3.5 - 5.1 mmol/L) Cancelled Cancelled 6.3 *H Chloride (98 - 107 mmol/L) Cancelled Cancelled 95 L Carbon Dioxide (22 - 30 mmol/L) Cancelled Cancelled 14 L Anion Gap (5 - 16) Cancelled Cancelled 20 H BUN (9 - 20 mg/dL) Cancelled Cancelled 113 *H Creatinine (0.7 - 1.2 mg/dL) Cancelled Cancelled 10.3 *H Estimated GFR (>60 ml/min) 5 L BUN/Creatinine Ratio (7 - 25 %) Cancelled 11.0 Glucose Cancelled Uric Acid Cancelled Calcium (8.4 - 10.2 mg/dL) Cancelled Cancelled 4.7 *L Phosphorus (2.5 - 4.5 mg/dL) Cancelled Cancelled 10.2 H Magnesium Cancelled Total Bilirubin (0.2 - 1.3 mg/dL) Cancelled 4.1 H Direct Bilirubin (< 0.4 mg/dL) 3.6 H AST (17 - 59 U/L) Cancelled 5661 H ALT (21 - 72 U/L) Cancelled 852 H Alkaline Phosphatase (< 127 U/L) 278 H Creatine Kinase (55 - 170 U/L) 620716 H Total Protein (6.3 - 8.2 g/dL) 5.0 L Albumin (3.5 - 5.0 g/dL) Cancelled 2.2 L Hematology CBC w Diff MAN DIFF ORDERED WBC (4.8 - 10.8 /CUMM) 11.4 H RBC (4.70 - 6.10 /CUMM) 2.30 L Hgb (14.0 - 18.0 G/DL) 7.5 L Hct (42 - 52 %) 21.7 L MCV (80.0 - 94.0 FL) 94.1 H MCH (27.0 - 31.0 PG) 32.6 H MCHC (33.0 - 37.0 G/DL) 34.6 RDW (11.5 - 14.5 %) 17.4 H Plt Count (130 - 400 /CUMM) 109 L MPV (7.4 - 10.4 FL) 9.6 Segmented Neutrophils (42.2 - 75.2 %) 80 H Band Neutrophils (0.0 - 5.0 %) 3 Lymphocytes (20.5 - 51.1 %) 13 L Monocytes (1.7 - 9.3 %) 3 Eosinophils (0 - 5.0 %) 1 Platelet Estimate (ADEQUATE) DECREASED Polychromasia 1+ Anisocytosis 1+ Serology Ehrlichia DNA (PCR) Pending 03/27 03/27 03/27 0640 0640 0600 Serology Lyme Disease Antibody Cancelled Toxicology Urine Opiates Screen (>2000 NG/ML) < 100 Methadone Screen (>300 NG/ML) > 735 H Barbiturate Screen (>200 NG/ML) < 60 Ur Phencyclidine Scrn (>25 NG/ML) < 6.00 Amphetamines Screen (>1000 NG/ML) < 100 U Benzodiazepines Scrn (>200 NG/ML) 431 H Urine Cocaine Screen (>300 NG/ML) < 50 Urine Cannabis Screen (>50 NG/ML) < 5.00 Urines Urinalysis MOD H Urine Color (YEL,AMB,STR) FOZIA Urine Clarity (CLEAR) HAZY H Urine pH (5.0 - 8.0) 6.0 Ur Specific [place] (1.001 - 1.035) 1.015 Urine Protein (NEG,<30 MG/DL) 100 H Urine Ketones (NEG) NEG Urine Nitrite (NEG) NEG Urine Bilirubin (NEG) POS@ICTO H Urine Urobilinogen (0.1 - 1.0 EU/dl) 0.2 Ur Leukocyte Esterase (NEG) NEG Ur Microscopic SEDIMENT EXAMINED Urine RBC (0 - 5 /HPF) 1-3 Urine WBC (0 - 2 /HPF) 25-50 H Ur Epithelial Cells (NONE,FEW) RARE Urine Bacteria (NEG/NONE) MANY H Granular Casts (NONE /LPF) 15-25 H Urine Hemoglobin (NEG) LARGE H Urine Osmolality (300 - 1000 MOSM/KG) 313 Ur Random Creatinine (mg/dL) 91.1 Ur Random Sodium (30 - 90 mmol/L) 74 Ur Random Potassium (mmol/L) 46.7 Fraction Sodium Excret (<1% %) 5.6 H Urine Glucose (N MG/DL) NEG 03/26 1700 Chemistry Sodium (137 - 145 mmol/L) 130 L Potassium (3.5 - 5.1 mmol/L) 4.7 Chloride (98 - 107 mmol/L) 93 L Carbon Dioxide (22 - 30 mmol/L) 19 L Anion Gap (5 - 16) 18 H BUN (9 - 20 mg/dL) 103 *H Creatinine (0.7 - 1.2 mg/dL) 9.0 *H Estimated GFR (>60 ml/min) 6 L BUN/Creatinine Ratio (7 - 25 %) 11.4 Glucose (65 - 99 mg/dL) 88 Serum Osmolality (285 - 295 MOSM/KG) 318 H Lactic Acid (0.7 - 2.1 mmol/L) 1.7 2.2 H Calcium (8.4 - 10.2 mg/dL) 5.8 *L Phosphorus (2.5 - 4.5 mg/dL) 8.6 H Magnesium (1.6 - 2.3 mg/dL) 1.7 Total Bilirubin (0.2 - 1.3 mg/dL) 4.3 H Direct Bilirubin (< 0.4 mg/dL) 3.7 H AST (17 - 59 U/L) 6928 H ALT (21 - 72 U/L) 1128 H Alkaline Phosphatase (< 127 U/L) 376 H Creatine Kinase (55 - 170 U/L) > 38956 H Troponin I (<0.11 ng/ml) 0.15 *H Total Protein (6.3 - 8.2 g/dL) 6.1 L Albumin (3.5 - 5.0 g/dL) 2.7 L Globulin (1.9 - 4.2 gm/dL) 3.4 Albumin/Globulin Ratio (1.1 - 2.2 %) 0.8 L Lipase (23 - 300 U/L) 793 H 25-OH Vitamin D Total (30 - 100 ng/ml) 14.0 L Coagulation PT (9.4 - 12.5 SEC) 16.0 H INR (0.90 - 1.17) 1.46 H APTT (25 - 37 SEC) 39 H Hematology CBC w Diff MAN DIFF ORDERED WBC (4.8 - 10.8 /CUMM) 11.9 H RBC (4.70 - 6.10 /CUMM) 3.11 L Hgb (14.0 - 18.0 G/DL) 10.0 L Hct (42 - 52 %) 28.9 L MCV (80.0 - 94.0 FL) 93.0 MCH (27.0 - 31.0 PG) 32.2 H MCHC (33.0 - 37.0 G/DL) 34.7 RDW (11.5 - 14.5 %) 16.9 H Plt Count (130 - 400 /CUMM) 116 L MPV (7.4 - 10.4 FL) 9.3 Segmented Neutrophils (42.2 - 75.2 %) 72 Lymphocytes (20.5 - 51.1 %) 26 Monocytes (1.7 - 9.3 %) 1 L Eosinophils (0 - 5.0 %) 1 Platelet Estimate (ADEQUATE) DECREASED Anisocytosis 1+ Target Cells RARE Serology Hepatitis A IgM Ab (NONREACTIVE) NONREACTIVE Hep Bs Antigen (NONREACTIVE) NONREACTIVE Hep B Core IgM Ab Conf (NONREACTIVE) NONREACTIVE Hepatitis C Antibody (NONREACTIVE) NONREACTIVE Toxicology Acetaminophen (10.0 - 30.0 ug/mL) < 10.0 L Serum Alcohol (<10 MG/DL) < 10.0 Imaging/Other Studies: CT KIDNEYS AND URETERS: The kidneys are normal in size, shape, and attenuation. No hydronephrosis, hydroureter, or calculi seen. No perinephric stranding.
--- NOTE | 2018-03-28 12:44 | Event Note ---
Event Note Event Note: Situation: The patient was noticed to be increasingly obtunded and having difficulty breathing, I contacted Dr. Romero and Paramjit Mckenzie MD who recommended that the patient should be intubated for airway protection, anesthesia was paged. And before proceeding with intubation the patient coded. He was found to be nonresponsive with severe bradycardia and pulseless. He was resuscitated for 35 minutes which resulted in regain of his pulse. After intubation and placement of OG tube the patient was noticed to have large amount of dark bloodcoming out of the OG tube over 500CC, In addition he was actively bleeding from oral cavity, and from suction from endotracheal tube. pt recieved mass blood transfusion of 6 uits, 4 units of platlets, cryopercipitate, ON 3 IV pressors, was started on hemodialysis. GI, Nephrology, Wax Pourer on board
[2018-03-28 12:48] LABS: PLATELET COUNT 63 /CUMM (130-400)
[2018-03-28 13:10] VITALS: BP 80/00
--- NOTE | 2018-03-28 16:09 | Event Note ---
Event Note Event Note: Situation Code 3 -- CPR for 7:15min with ROSC Brief Patient is a 47 YO M with multiple conditions
--- NOTE | 2018-03-28 20:00 | Event Note ---
Event Note Event Note: Patient deteriorated. Had another cardiac arrest asystole then PEA for 7 minutes. Family discussions were continued. He arrested yet again. His mother has arrived. Ongoing CPR, she was present in the room, the decision was made to halt the arrest, patient remained pulseless. The decision was made to stop the CPR. He was pronounced. See pronouncement note. Additional time spent 60 minutes
--- NOTE | 2018-03-28 20:10 | Discharge Summary ---
Visit Information Visit Dates Admission Date: 03/26/18 Discharge Date: 03/28/18 Hospital Course Course Attending Physician: Benjamin Romero MD Primary Care Physician: Wilver Santiago MD Consulting Request: 1 Consulting Specialty: Cardiology Consulting Physician: Reason for Consult: post cardiac arrest Consulting Request: 2 Consulting Specialty: Gastroenterology Consulting Physician: Reason for Consult: gastrointestinal bleed Consulting Request: 3 Consulting Specialty: Critical Care Consulting Physician: Reason for Consult: renal failure with refractory hyperkalemia Consulting Request: 4 Consulting Specialty: Nephrology Consulting Physician: Dr. Mckenzie Reason for Consult: acute renal failure with hyperkalemia Hospital Course: Patient is a 47 M with a PMH HTN Anxiety who presents with a chief complaint of muscle cramping x 1 day, but has several other complaints as well. Poor historian. States weakness and bruising of the arms and legs that began about 4 days ago. States general myalgias, malaise, weakness x 4 days. States he vomited repeatedly over the past 2 days as well but denies any blood in the vomitus, states vomitus is brown liquid and is not associated with meals. Does state decreased PO intake/appetite. 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 Initially the patient was admitted to the general medicine floor, next morning the patient was found to be hypotensive with blood pressure 86/32, morning labs were significant for worsening kidney function with creatinine 10.3, BUN 113, corrected CPK 628101, AST 5661, ALT 852. Transferred to ICU yesterday with concerns of acute renal failure, profound transaminitis, hyperkalemia, hypocalcemia. The following outlines his management in ICU 03/27/18 He came alert, oriented X3, although at times altered at around 11:30am. Stat labs were obtained, david catheter palced around 1pm. His labs shows improved in renal function although he had refractory hyperkalemia. He was scheduled to have dialysis around 6pm. Meawhile patient started to have progression of encephalopathy which thought secondary to uremia as next labs did show Cr 28. He was obtunded by evening, when tried to intubate coded. After 32 min of CPR patient had ROSC. After ROSC found to have significant coffee ground emesis on suction and lower GI tract, started on massive trasfusion protocol received a total of 10 units PRBC, 1 unit FFP, 1 unit Cryoprecipitate, 1 unit DDAVP. Started on levophed, epinephrine, vasopressin drips max. In view of GI bleed started on IV pantoprazole @ 8mg/hr and Octreotide drip @50mcg/hr. A femoral line was placed at bedside by . He underwent dialysis for 3hrs without any removal of volume in view of hypotension. Bedside ECHO did show good contractility of heart. 03/28/18 Problem list 1. Hemorrhagic shock with multiorgan failure on 3 pressors 2. S/P cardiac arrest - CPR for 32 min 3. Acute renal failure with rhabdomyolysis - status post dialysis 4. DIC status post massive transfusion protocol 5. Significant gastrointestinal bleeding with probable abdominal compartment syndrome 6. Significant anion gap metabolic acidosis 7. Hypotensive episode during dialysis on maximal perssor support 8. Multiple electrolyte abnormalities - hypocalcemia, hyperkalemia, hyperphosphatemia Coure during the day He was initially maintained his blood pressure on maximal pressor support. Intubated and obtunded with dilated pupils mildly reactive. He was continued on IV protonix and IV octreotide drip. ABG did show pH of 7.3 so discontinued IV bicarbonate drip. After initiation of dialysis, he was not able to maintain his blood pressure despite boluses and pressors, so stopped dialysis. He remained bradycardic and his H&H continued to drop, abdomen distended likely from bleeding into abdomen. Around 3:30pm he coded - CPR done for 7min:15 sec with ROSC. In the next 15min he coded again, while CPR being performed, after 8min: 45sec mother decided to with hold it. was pronounced at 16:18pm. Family meeting was held multiple times through out the day, patient status was updated and complexity of the situation was outlined. 1. Hemorrhagic shock with multiorgan failure on 3 pressors Patient had significant alcohol history and transaminitis of 6928/1128 at presentation, elevated bilirubin however normal INR. He had history of steatosis possibly progressed to cirrhosis given thrombocytopenia. He coded and then found to have coffee ground emesis vis NG suction and significant melena, H&H dropped to 5.7/16 from 06/14 at presenatation. Massive transfusion protocol was initiated and 10 units of PRBC was initiated along with 1 unit FFP, 1 unit platelet, 1 unit cryoprecipitate. Maintained on IV protonix and IV octreotide drips. He was considered too unstable for endoscopy or colonoscopy. 2. S/P cardiac arrest - CPR for 32 min Patient had reverse of circulation after 32 min of CPR. Bed side ECHO did show good contractility. Cardiology consulted. Patient coded twice in the evening of 03/28/18. During out resuscitation attempts during the second time family decided to with hold the care. 3. Acute renal failure with rhabdomyolysis Patient did have significant muscle cramps [place] [address] at presentation which progressed to [id number] on 03/27/18. He was aggressively hydrated with fluids next day. His renal function worsened the next day, probably ATN from myoglobin. He continued to have refractory hyperkalemia. David was placed and scheduled for dialysis in the evening. After initial code on 03/27/18 he underwent dialysis for 3hrs. On 03/28/18 while doing dialysis second session he sustained hypotension due to which it halted. 4. DIC status post massive transfusion protocol Patient had massive possibly variceal bleed which in the setting of uremia progressed to DIC. During code, he had bleeding from all the orifices. Massive transfusion protocol was initiated, aggressively repleted. Next day (03/28/18) he continued to bleed, had been receiving transfusion till he . 5. Significant gastrointestinal bleeding with probable abdominal compartment syndrome Patient had liver failure with significant probably variceal bleed. He was too unstable to go for a endoscopy. He was found to have rigid abdomen the day he probably due to bleeding extraluminally, concerning for compartment syndrome. 6. Multiple electrolyte abnormalities - hypocalcemia, hyperkalemia, hyperphosphatemia He had multiple electrolyte derrangements from the time of presentation. Hypocalcemia with hyperphosphatemia likely from renal failure, dialysis would be a better choice. He did have hyperkalemia for which he was given one dose of calcium gluconate, iv insulin and dextrose. Due to concern of further worsening calcium levels bicarbonate drip was not started intially, however after initial cardiac arrest his pH dropped to 6.9 so started on bicarbonate drip overnight. Complications: Cardiopulmonary arrest due to hemorrhagic shock with multiorgan failure, significant metabolic acidosis, hypocalcemia. Allergies: Coded Allergies: Penicillins (Severe, UNKNOWN PER PT HAD A REACTION A CHILDHOOD 03/26/18) Significant Procedures: CT abdomen and pelvis IMPRESSION: Hepatomegaly with hepatic steatosis. No focal lesion seen. Nonspecific mild mural thickening involving distal ascending colon and right transverse colon. Nonspecific colitis likely inflammatory or infectious etiology. No proximal bowel obstruction. Scattered sigmoid diverticulosis without diverticulitis. David catheter placement IMPRESSION: Successful placement of temporary hemodialysis catheter via the right internal jugular vein. CXR on 03/27/18 IMPRESSION: Limited evaluation. Endotracheal tube terminates 3.8 cm above the sheree. Distal end of the enteric tube is not clearly visualized, likely in the distal esophagus. CXR on 03/28/18 IMPRESSION: 1. ET tube 5.2 cm above sheree. 2. Right internal jugular line tip at confluence SVC and right atrium. 3. NG tube poorly visualized, likely below diaphragm with manipulation of film windows. 4. Low lung volumes. Bilateral mid zone atelectasis. Pertinent Lab Results: as above Disposition Summary Disposition Principal Diagnosis: Hemorrhagic shock with multiorgan failure Additional Diagnosis: Acute renal failure with rhabdomyolysis - status post dialysis DIC status post massive transfusion protocol Significant gastrointestinal bleeding with probable abdominal compartment syndrome Significant anion gap metabolic acidosis Hypotensive episode during dialysis on maximal perssor support Multiple electrolyte abnormalities - hypocalcemia, hyperkalemia, hyperphosphatemia Discharge Disposition: Discharge Instructions General Discharge Information Code Status: Full Code Patient's Diet: NONE Patient's Activity: NONE Follow-Up Instructions/Appts: NONE - Medications at Discharge Discharge Medications: Stop taking the following medications: Diazepam (Diazepam) 10 MG TABLET ORAL THREE TIMES DAILY as needed for ANXIETY Copies To: Tobi PARISH,Carlton De La Cruz; Jonah PARISH,Paramjit Banuelos; Nick PARISH,Benjamin Attending MD Review Statement Documenting Attending: Benjamin Romero MD
== END 2018-03-28 16:18 | disposition expired | DRG 469 ==
LOC: ERH 16:46 → ERHI 19:38 → CRI 19:38 → ENRESERV 22:03 → ENTRNSPT 22:24 → EDTRNSPT 22:32 → EDTRNSPTSTS 22:32 → 2NA 22:33 → CMPTRNSPT 22:47 → 2NA 03-27 07:57 → CRI 03-27 10:50
PROVIDERS: Emergency Medicine; General Practice; Internal Medicine; Internal Medicine Critical Care Medicine; Student in an Organized Health Care Education/Training Program
PROC: 5A1935Z Respiratory Ventilation, Less than 24 Consecutive Hours (ICD-10-PCS; principal; 2018-03-27)
PROC: 0BH17EZ Insertion of Endotracheal Airway into Trachea, Via Natural or Artificial Opening (ICD-10-PCS; principal; 2018-03-27)
PROC: 30233K1 Transfusion of Nonautologous Frozen Plasma into Peripheral Vein, Percutaneous Approach (ICD-10-PCS; 2018-03-27)
PROC: 30233N1 Transfusion of Nonautologous Red Blood Cells into Peripheral Vein, Percutaneous Approach (ICD-10-PCS; 2018-03-27)
PROC: 02H633Z Insertion of Infusion Device into Right Atrium, Percutaneous Approach (ICD-10-PCS; 2018-03-27)
PROC: 5A1D70Z Performance of Urinary Filtration, Intermittent, Less than 6 Hours Per Day (ICD-10-PCS; 2018-03-27)
PROC: 5A12012 Performance of Cardiac Output, Single, Manual (ICD-10-PCS; 2018-03-27)
DX: N17.0 Acute kidney failure with tubular necrosis (principal); D65 Disseminated intravascular coagulation [defibrination syndrome]; R57.1 Hypovolemic shock; R57.8 Other shock; G93.40 Encephalopathy, unspecified; E46 Unspecified protein-calorie malnutrition; E83.39 Other disorders of phosphorus metabolism; M79.A3 Nontraumatic compartment syndrome of abdomen; E87.1 Hypo-osmolality and hyponatremia; E83.51 Hypocalcemia; M62.82 Rhabdomyolysis; I95.9 Hypotension, unspecified; K92.2 Gastrointestinal hemorrhage, unspecified; E87.2 Acidosis; E87.5 Hyperkalemia; E78.5 Hyperlipidemia, unspecified; F10.10 Alcohol abuse, uncomplicated; F19.10 Other psychoactive substance abuse, uncomplicated; F41.9 Anxiety disorder, unspecified; E66.9 Obesity, unspecified; D64.9 Anemia, unspecified; I46.9 Cardiac arrest, cause unspecified; Z68.37 Body mass index [BMI] 37.0-37.9, adult; R00.1 Bradycardia, unspecified; F32.9 Major depressive disorder, single episode, unspecified; F17.210 Nicotine dependence, cigarettes, uncomplicated; Z88.0 Allergy status to penicillin
CPT/HCPCS: 2NAP; 84133; 84300; 86317; 86618; 87798; CCU; 36415; 36592; 71045; 74176; 77001; 80307; 81001; 82436; 82570; 86920; 87015; 87045; 87070; 87086; 87389; 87899; 87899-59; 93005; 93010; 96360; 96361; C1752; C1769; G0480; J0282; J0461; J0610; J0696; J1644; J1720; J1815; J2001; J2354; J2597; J3490; J7040; J7060; P9012; P9016; P9031